=== PATIENT | male | born 1970 | race Caucasian/White ===

== ENCOUNTER → 2018-05-24 13:30 | Outpatient (REF) | payer MEDICAID, SELFPAY ==
[2018-05-24 14:38] LABS: ESR 25 MM/HR (0-15)
[2018-05-24 14:42] LABS: C-Reactive Protein 0.97 mg/dL (0.0-0.3)
== END ==
LOC: LBO 13:30
PROVIDERS: PCP Nurse Practitioner Family; Visit Provider Nurse Practitioner Family
DX: R79.82 Elevated C-reactive protein (CRP) (principal); R70.0 Elevated erythrocyte sedimentation rate
CPT/HCPCS: 36415; 85652; 86140

== ENCOUNTER 2018-05-28 20:08 | Emergency (ER) | payer MEDICAID, SELFPAY ==
[2018-05-28] VITALS (8 sets, daily range): BP systolic 104–128; BP diastolic 68–105; PULSE 87–100; RESP 16–23; TEMP 37.4; O2SAT 95–100
--- NOTE | 2018-05-28 20:14 | DI.RPTCT_ITS ---
SYMPTOM/DIAGNOSIS: FEVER, LOW ABD PAIN ABDOMEN AND PELVIC CT: The study was carried out with an intravenous injection of 125 cc's of Omnipaque 350. The liver is unremarkable. The gallbladder is intact. There are no stones or ductal dilatation. The pancreas and spleen and adrenals are unremarkable. There are subcentimeter low density regions in both kidneys, too small to characterize though most likely representing cysts. There is no evidence of hydronephrosis. The stomach is unremarkable. There is no evidence of bowel obstruction. The appendix is normal. The bladder is not well distended but no gross abnormality is seen. Calcifications are noted in the prostate gland. There is no evidence of free air or fluid in the intraperitoneal space. Note is made of a stable small bone island in the S 1 vertebral body. Multi level degenerative changes are demonstrated involving the spine. No acute bony abnormality is seen. The soft tissues are unremarkable. There are atherosclerotic changes involving the aorta and major branches. There is no evidence of an aortic aneurysm. There is no evidence of lymphadenopathy. SUMMARY: No evidence of an acute abdomen. Chronic findings as described above.
--- NOTE | 2018-05-28 20:18 | ED.GENADUL ---
Disposition Clinical Impression: Abdominal pain, Elevated LFTs Disposition: HOME Condition: Stable Instructions: Abdominal Pain (ED) Additional Instructions: follow up with your primary care provider within one week if you have severe worsening pain or persistent vomit return to the emergency department. Also return if you have shortness of breath, or chest pain/pressure Medical Decision Making - Lab Data Results reviewed for labs ordered during visit: Yes - EKG Data -: EKG Interpreted by Me EKG shows normal: sinus rhythm, axis, intervals, QRS complexes, ST-T waves Rate: normal Interpretation: no acute changes - Radiology Data Radiology results: report reviewed, image reviewed - Medical Decision Making pt here with complaints of fevers since yesterday though didn't check his temp yesterday and intermittent abdominal pain since yesterday. Has no findings on exam to suggest appendicitis, but given his fever and location of pain will image to eval for pyelo vs kidney stone. NO cough or chest pain or sob so doubt pna. 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 No heart murmur, no ivdu and no stigmata of endocarditis pt remains stable is asymptoamtic at this time. Awaiting imaging results, has very mild elevation of lfts and lipase. HAs no abdominal tenderness or pain at this time, no garcía's sign so unlikely cholecystitis or pancreatitis. imaging shows no significant acute pathology. HE remains without symptoms and is walking on his own without symptoms. No tenderness on abdominal exam. Feel he is stable for outpatient management, he will f/u with pcp and return precautions given - Differential Diagnosis pyelo, kidney stone, pna History of Present Illness - General Chief complaint: Abd Prob Stated complaint: CALEX Time Seen by Provider: 05/28/18 20:09 Source: patient Mode of arrival: EMS Limitations: no limitations - History of Present Illness Initial comments: 48 yo male with hx of hld, pancreatitis, who comes in with cc of fever since yesterday. HE states he felt warm yesterday but didn't take his temp. Today he checked his temp and it was 100.8 so he came here. He noted some rlq pain earlier today and has some pain in the rlq with movement, has no pain on abdominal exam. Does note increased urinary frequency recently. Denies chest pain or cough, no headaches or neck pain or stiffness MD Complaint: fever Onset/Timin -: days(s) Improves with: none Worsens with: none Associated Symptoms: other (abd pain) Treatments Prior to Arrival: none - Related Data HydrOXYzine PAMOATE [Vistaril] 50 mg PO BID 03/09/17 Nystatin 15 gm TP PRN 03/22/17 Acetaminophen [Tylenol] 1,000 PO PRN PRN 05/16/17 Bupropion HCl [Wellbutrin Xl] 300 mg PO DAILY #90 tab-cap 10/08/17 Ibuprofen 400 mg PO HS tab-cap 02/21/18 Pantoprazole Sodium 40 mg PO DAILY 90 Days #90 tab-cap 05/03/18 Citalopram Hydrobromide [Citalopram HBr] 40 mg PO DAILY #90 tab-cap 05/22/18 Simvastatin 40 mg PO DAILY #90 tab-cap 05/24/18 Allergies Allergy/AdvReac Type Severity Reaction Status Date / Time nicotine [From Nicoderm CQ] AdvReac headaches Unverified 05/28/18 20:13 Review of Systems Constitutional: fever. denies: chills Respiratory: denies: shortness of breath Cardiovascular: denies: chest pain Gastrointestinal: abdominal pain. denies: nausea, vomiting Skin: denies: rash Neurological: denies: headache Comment: All other systems reviewed and negative Past Medical History - Past Medical History Medical history: GERD, hyperlipidemia Surgical history: non-contributory - Social History Smoking status: current everyday smoker Alcohol use: none Drug use: none General Exam - General Limitations: no limitations General appearance: alert, in no apparent distress - Head Head exam: Present: atraumatic - Eye Eye exam: Present: normal apperance - ENT ENT exam: Present: mucous membranes moist - Neck Neck exam: Present: normal inspection - Respiratory Respiratory exam: Present: normal lung sounds bilaterally. Absent: respiratory distress - Cardiovascular Cardiovascular Exam: Present: regular rate, normal rhythm, normal heart sounds - GI/Abdominal GI/Abdominal exam: Present: soft. Absent: distended, tenderness - Extremities Exam Extremities exam: Present: normal inspection - Back Exam Back exam: Absent: CVA tenderness (R), CVA tenderness (L) - Neurological Exam Neurological exam: Present: alert, oriented X3 - Psychiatric Psychiatric exam: Present: normal affect - Skin Skin exam: Present: warm Course Vital Signs - 24 hr 05/28/18 20:09 Temperature 99.3 F Pulse 100 H Respiratory 23 Rate Blood Pressure 128/105 Pulse Oximetry 100
[2018-05-28 20:22] LABS: Lactate-non-spesis 1.3 mmol/L (0.6-1.4)
[2018-05-28 20:26] LABS: Abs Immature Grans 0.01 k/cumm (0.0-0.09); Absolute Basophil Count 0.03 k/cumm (0.0-0.2); Absolute Lymphocyte Count 1.53 k/cumm (1.2-3.4); Absolute Monocyte Count 0.45 k/cumm (0.11-0.7); Absolute Neutrophil Count 4.25 k/cumm (1.2-6.7); Basophils % 0.5; HCT 43.6 % (40.0-50.0); Immature Grans % 0.2; Lymphocytes % 24.4; Mean Corp. HGB Concentration 34.4 g/dL (32.0-36.0); Mean Corpuscular Hemoglobin 29.9 pg (27.0-33.0); Mean Corpuscular Volume 86.9 fL (80-95); Mean Platelet Volume 8.2 fL (8.0-11.0); Monocytes % 7.2; Neutrophils % 67.7; Platelet Count 183 x1000/uL (130-400); RBC 5.02 m/cumm (4.50-6.00); White Blood Cell Count 6.27 k/cumm (4.4-10.8)
[2018-05-28] MEDS: Omnipaque 350 MG/ML 100 ML BTL 125 ML IV (20:30)
[2018-05-28 20:39] LABS: Lipase 480 U/L (73-393)
[2018-05-28 20:42] LABS: Bilirubin Negative (Negative); Blood Trace-intact (Negative); Clarity Clear; Glucose Negative (Negative); Ketones Trace mg/dL (Negative); Leukocyte Esterase Negative (Negative); Nitrite Negative (Negative)
[2018-05-28 20:46] LABS: ALT 95 U/L (12-78); AST 43 U/L (15-37); Albumin 4.2 g/dL (3.4-5.0); Alkaline Phosphatase 116 U/L (46-116); Anion Gap 10.8 mmol/L (3-11); BUN 13 mg/dL (7-18); Bilirubin, Total 0.5 mg/dL (0.2-1.0); CO2 25.2 mmol/L (21.0-32.0); Chloride 100 mmol/L (98-107); Estimated GFR 58.43 (mL/min/1.73m2); Glucose 129 mg/dL (70-100); Magnesium 2.3 mg/dL (1.8-2.4); Potassium 3.6 mmol/L (3.5-5.1); Sodium 136 mmol/L (136-145); Total Protein 8.6 g/dL (6.4-8.2)
[2018-05-28 20:54] LABS: Troponin I < 0.02 ng/mL (0.00-0.06)
[2018-05-28 20:59] LABS: Bacteria Rare HPF (Negative); C & S Indicated? No; Casts 0-2 Hyaline LPF (Negative); Crystals Negative HPF (Negative); Epithelial Cells Rare HPF (Negative); Mucus Negative (Negative); RBC 0-2 (0-2)
[2018-05-28] MEDS: Acetaminophen 500 MG TAB 1000 MG PO (21:25)
[2018-05-28] MEDS: Normal Saline 1,000 ML 1000 ML IV (21:26)
--- NOTE | 2018-05-28 21:40 | DI.VRAD_ITS ---
EXAM: CT Abdomen and Pelvis With Intravenous Contrast CLINICAL HISTORY: 48 years old, male; Signs and symptoms; Other: Fever and lower abdominal pain TECHNIQUE: Axial computed tomography images of the abdomen and pelvis with intravenous contrast. All CT scans at this facility use at least one of these dose optimization techniques: automated exposure control; mA and/or kV adjustment per patient size (includes targeted exams where dose is matched to clinical indication); or iterative reconstruction. Coronal and sagittal reformatted images were created and reviewed. CONTRAST: 125 mL of omnipaque 350 administered intravenously. COMPARISON: CT - ABD PELVIS WITH CONTRAST 2018-01-17 21:34 FINDINGS: Lung bases: Unremarkable. No mass. No consolidation. ABDOMEN: Liver: Unremarkable. No mass. Gallbladder and bile ducts: Unremarkable. No calcified stones. No ductal dilation. Pancreas: Unremarkable. No mass. No ductal dilation. Spleen: Unremarkable. No splenomegaly. Adrenals: Unremarkable. No mass. Kidneys and ureters: Small subcentimeter low density lesions in both kidneys, too small to characterize though statistically representing cysts. No hydronephrosis. Stomach and bowel: Unremarkable. No obstruction. No mucosal thickening. PELVIS: Appendix: The appendix is normal. Bladder: Unremarkable. No mass. Reproductive: Calcifications in the prostate gland. ABDOMEN and PELVIS: Intraperitoneal space: Unremarkable. No free air. No significant fluid collection. Bones/joints: Stable small bone island in the S1 vertebral body.Multilevel degenerative changes of the visualized spine. No acute fracture. No dislocation. Soft tissues: Unremarkable. Vasculature: Atherosclerotic calcifications of the aorta and major branches. No abdominal aortic aneurysm. Lymph nodes: Unremarkable. No enlarged lymph nodes. IMPRESSION: 1. No acute findings. 2. Other chronic findings, as above. Dictated and Authenticated by: Hernan Bruno MD. Ordering:CHELSEA CHAMPAGNE MD
[2018-05-30 11:02] LABS: Hepatitis A Antibody IgM Negative (NEGAT); Hepatitis B Core Antibody Negative (NEGAT); Hepatitis B surface Ag Negative (NEGAT); Hepatitis C Ab w Rflx HCV PCR Negative (NEGAT)
[2018-05-30 12:56] LABS: Lyme Ab w Rflx to Lyme Confirm Negative
[2018-05-31 20:41] LABS: Anaplasma phagocytophilum Negative (Negative); B. miyamotoi PCR Negative (Negative); Babesia divergens/MO-1 Negative (Negative); Babesia duncani Negative (Negative); Babesia microti Negative (Negative); Ehrlichia chaffeensis Negative (Negative); Ehrlichia ewingii/canis Negative (Negative); Ehrlichia muris eauclairensis Negative (Negative)
== END 2018-05-28 22:35 | disposition home or self-care (01) ==
PROVIDERS: Emergency Provider Emergency Medicine; PCP Nurse Practitioner Family
DX: R10.31 Right lower quadrant pain (principal); R74.8 Abnormal levels of other serum enzymes; R50.9 Fever, unspecified
CPT/HCPCS: 36415; 80053; 83690; 86704; 86709; 86803; 87340; 93005; 99285; 74177; 81003; 81015; 83605; 83735; 84484; 85025; 86618; 87798; 93010; 99284; J3490

== ENCOUNTER 2018-06-14 14:30 | Outpatient (RCR) | payer MEDICAID, SELFPAY ==
--- NOTE | 2018-05-31 16:00 | PTTR_ITS ---
DATE: 05/31/18 SUBJECTIVE: Pt states that his back is doing fairly well. OBJECTIVE: Therapeutic procedures ([id number]). * X Provided skilled instruction in proper exercise performance: Pt completed core stabilization ther ex, glute strengthening, LE strengthening, and cardio as per flow sheet with the wellness. Pt was able to tolerate a slight increase in his program today please see flow sheet for specifics. We excluded the treadmill today due to pt stating it made his knees swell after last session. Direct treatment time: 30 Total treatment time: 45
--- NOTE | 2018-06-11 14:38 | NT_ITS ---
06/11/18 Pt no show no called for today's PT appointment.
--- NOTE | 2018-06-12 14:34 | PTTR_ITS ---
DATE: 06/12/18 SUBJECTIVE: Pt reports that he is doing well. He states that he has been able to walk more. OBJECTIVE: Therapeutic procedures ([id number]). * X Provided skilled instruction in proper exercise performance: Pt completed LE strengthening, glute strengthening, core stabilization ther ex, functional sit to stands to fatigue, and cardio on the Nu Step. Pt was able to tolerate a slight increase in his program today. Pt was also shown how to properly chart and complete his program on his own. Pt will have one more visit as a review and then complete an MSP program for one month and then recheck with PT Segun Kruger. Direct treatment time: 30 Total treatment time: 40
--- NOTE | 2018-06-14 14:39 | PTTR_ITS ---
DATE: 06/14/18 OBJECTIVE: Therapeutic procedures ([id number]). * X Provided skilled instruction in proper exercise performance: Pt completed core stabilization ther ex, glute strengthening, LE strengthening, functional sit to stands with glute sets, and cardio on the Nu Step and UBE. Pt was prepped for his last MSP session with me today and next week will start his independent program for 1 month and recheck with PT Segun Kruger. Direct treatment time: 30 Total treatment time: 45
== END 2018-06-21 23:59 | disposition home or self-care (01) ==
LOC: PT 14:30
PROVIDERS: PCP Nurse Practitioner Family; Referring Provider Nurse Practitioner Family; Visit Provider Nurse Practitioner Family
DX: M54.2 Cervicalgia (principal); M25.511 Pain in right shoulder; M25.512 Pain in left shoulder; M25.561 Pain in right knee
CPT/HCPCS: 97110

== ENCOUNTER → 2018-06-20 12:05 | Outpatient (CLI) | payer MEDICAID, SELFPAY ==
[2018-06-20 13:13] LABS: ALT 76 U/L (12-78); AST 41 U/L (15-37); Albumin 4.2 g/dL (3.4-5.0); Alkaline Phosphatase 107 U/L (46-116); Anion Gap 4.6 mmol/L (3-11); BUN 13 mg/dL (7-18); Bilirubin, Total 0.3 mg/dL (0.2-1.0); CO2 29.4 mmol/L (21.0-32.0); CREATININE 1.07 mg/dL (0.70-1.30); Chloride 110 mmol/L (98-107); Glucose 95 mg/dL (70-100); Lipase 170 U/L (73-393); Potassium 3.9 mmol/L (3.5-5.1); Sodium 144 mmol/L (136-145); Total Protein 7.6 g/dL (6.4-8.2)
== END ==
PROVIDERS: PCP Nurse Practitioner Family; Visit Provider Nurse Practitioner Family
DX: R74.8 Abnormal levels of other serum enzymes (principal); R94.5 Abnormal results of liver function studies
CPT/HCPCS: 36415; 80053; 83690

== ENCOUNTER 2018-10-31 16:13 | Emergency (ER) | payer MEDICAID, SELFPAY ==
[2018-10-31] VITALS (24 sets, daily range): BP systolic 103–136; BP diastolic 64–111; PULSE 91–113; RESP 13–26; TEMP 37.2–37.8; O2SAT 92–97
--- NOTE | 2018-10-31 16:36 | ED.GENADUL_ITS ---
Discharge Plan Disposition Patient Disposition: HOME Condition: Improving Discharge Details Chief Complaint: GenMedical Clinical Impression: Acute UTI Reason For Visit: ROXANA Primary Care Provider: Griselda Vides ED Provider: Arcadio Kincaid Home Meds and New Rx's Prescriptions: New levofloxacin [Levaquin] 500 mg tablet 500 mg PO DAILY Qty: 7 RF: 0 Continued nystatin 15 GM cream 15 gm Topical PRN RF: 0 bupropion HCl [Wellbutrin XL] 300 MG tablet extended release 24 hr 300 mg PO DAILY Qty: 90 RF: 3 pantoprazole 40 MG tablet,delayed release (DR/EC) 40 mg PO DAILY 90 Days Qty: 90 RF: 0 Citalopram Hydrobromide [Citalopram HBr] 40 MG tablet 40 mg PO DAILY Qty: 90 RF: 3 simvastatin 40 mg tablet 40 mg PO QPM Qty: 90 RF: 3 aspirin [Aspir-Low] 81 mg Tablet,Delayed Release (Dr/Ec) 81 mg PO DAILY RF: 0 Discontinued hydroxyzine pamoate 50 MG capsule 50 mg PO BID RF: 0 ibuprofen 200 MG capsule 400 mg PO HS RF: 0 Discharge Instructions Instructions: Urinary Tract Infection in Men (ED) Additional Instructions: Follow-up with regular doctor for recheck if not improving in 3-5 days time. Return to the emergency department for any acute concerns. Avoid the use of hydroxyzine and ondansetron while taking the antibiotic. As we discussed this rarely can cause joint and tendon inflammation. Tylenol as needed for aches, pains, fever. Home to rest this evening Medical Decision Making 48-year-old male presents with a day and a half of left lower quadrant abdominal pain that radiates to his groin. Severe at times. Associated with changes to urine. He does have a history of pancreatitis and states that it feels similar in some ways. Minimal nausea, no fever, no trauma to his genitals. He states that he has otherwise recently been well. He arrives with a temp of 37.8, normal blood pressure, pulse in the 90s. He is tender in the left lower quadrant. Does not seem to be a classic presentation of pancreatitis but this is within the differential diagnosis, as well as renal colic or bowel pathology. Patient IV access established given Toradol, fluids, antiemetic, referred for CT urogram in order to have both contrast enhanced evaluation of the pancreas as well as traditional renal colic study. White blood cell count 12, troponin negative, lipase negative, urine concentrated and with both blood and positive leuk esterase. CT reported as no acute findings. On my reading I feel there is stranding of the distal colon adjacent to the ureter. This in combination with positive urinary tract infection would make me want to choose monotherapy with a loretta quinolone to cover both urinary tract infection as well as early diverticulitis. I discussed this with the patient including the risk of tendon\ligament inflammation on the fluoroquinolone. He will follow-up with regular doctor for recheck, appropriate for discharge home at this time Lab Data Lab results reviewed: Yes I reviewed the patient's lab results. Laboratory Results - last 24 hr 10/31/18 10/31/18 10/31/18 16:29 16:29 16:57 WBC 12.48 H RBC 4.38 L Hgb 13.1 L Hct 38.9 L MCV 88.8 MCH 29.9 MCHC 33.7 RDW 13.1 Plt Count 259 MPV 8.4 Immature Gran % 0.2 Neutrophils % 74.5 Lymphocytes % 17.6 Monocytes % 6.7 Eosinophils % 0.7 Basophils % 0.3 Absolute Neutrophils 9.30 H Absolute Lymphocytes 2.20 Absolute Monocytes 0.84 H Absolute Eosinophils 0.09 Absolute Basophils 0.04 Sodium 145 Potassium 4.1 Chloride 108 H Carbon Dioxide 26.4 Anion Gap 10.6 BUN 10 Creatinine 1.15 Estimated GFR/1.73 m2 >= 60.00 Glucose 108 H Calcium 9.0 Total Bilirubin 0.3 Conjugated Bilirubin 0.09 AST 33 ALT 67 Alkaline Phosphatase 127 H Troponin I < 0.02 Total Protein 7.6 Albumin 3.9 Lipase 160 Urine Color Yellow Urine Clarity Clear Urine pH 5.5 Ur Specific [place] >= 1.030 H Urine Protein 30 H Urine Ketones Trace H Urine Blood Large H Urine Nitrite Negative Urine Bilirubin Negative Urine Urobilinogen 0.2 Ur Leukocyte Esterase Moderate H Urine Glucose Negative ECG Data Attestation: I personally reviewed and interpreted this ECG (s) as follows: Interpretation: Sinus tachycardia, rate of approximately 100, the QRS is narrow, there is no ST segment elevation press HPI General Mode of arrival: EMS . Date/Time Provider Initiated Documentation: 10/31/18 16:19 . Limitations to Documentation: no limitations . Information obtained by: EMS . History of Present Illness 48 year old M presents to the emergency department with the chief complaint of Left lower quadrant abdominal pain since last night, described as moderate, Quality is described as aching, and is localized to the abdomen and left. Patient distal. and it has been intermittent. No relieving factors improve symptom(s), No exacerbating factors reported . Patient notes other (Bloody and burning in urine). Patient did receive the following treatments prior to arrival, none Related Data Home Medications Medication Instructions Recorded Confirmed nystatin 15 gm TOPICAL PRN 03/22/17 10/31/18 bupropion HCl [Wellbutrin XL] 300 mg PO DAILY #90 tab-cap 10/08/17 10/31/18 pantoprazole 40 mg PO DAILY 90 Days #90 tab-cap 05/03/18 10/31/18 simvastatin 40 mg tablet 40 mg PO QPM #90 tab-cap 06/25/18 10/31/18 aspirin [Aspir-Low] 81 mg PO DAILY 10/31/18 10/31/18 levofloxacin [Levaquin] 500 mg PO DAILY #7 tab 10/31/18 Previous Rx's Medication Instructions Recorded bupropion HCl [Wellbutrin XL] 300 mg PO DAILY #90 tab-cap 10/08/17 pantoprazole 40 mg PO DAILY 90 Days #90 tab-cap 05/03/18 simvastatin 40 mg tablet 40 mg PO QPM #90 tab-cap 06/25/18 levofloxacin [Levaquin] 500 mg PO DAILY #7 tab 10/31/18 Allergies Allergy/AdvReac Type Severity Reaction Status Date / Time nicotine [From Nicoderm CQ] AdvReac headaches Unverified 10/31/18 18:43 General Stated Complaint: GenMedical DIOMEDES: 3 Review of Systems Review of Systems 8 systems reviewed and otherwise neg [facility] Medical History Arthritis Chronic back pain Chronic pain of both knees Depression GERD (gastroesophageal reflux disease) Hyperlipidemia TERESSA (obstructive sleep apnea) Obesity Seborrheic dermatitis Tobacco use disorder Surgical History CT Urogram (10/03/11) EGD Extraction of cataract MRI (10/11/11) cervical Spine Xray (01/03/16) hand surgery Family History Mother Depression Heart disease Hypertension Father Heart disease Stroke Sister Alzheimers disease Breast cancer Social History Smoking/Tobacco Use Status: Former Tobacco Use Exam Narrative Exam Narrative: GEN: awake, alert, oriented 3. Pleasant, well groomed, interactive. HEAD: Normocephalic, atraumatic ENT: Mucous membranes moist, oropharynx unremarkable, External ear exam unremarkable EYES: PERRL, EOMI NECK: Full ROM, no PATRICK, no menigismus CHEST/RESP: Nontender, clear to auscultation bilateral, no wheeze/rhonchi/rales CARDIOVASCULAR: RRR, no murmur, rub brad. 2+ Rad pulse bilateral ABDOMEN: Soft, tender left lower quadrant without rebound or guarding, no mass. +Bowel sounds, bilateral testes descended EXT: Full ROM, no edema, no rash Neuro: Grossly normal neurologic exam, conversant, interactive. Psych: Speech fluent, thoughts congruent, affect normal Course Vital Signs Temperature 37.8 C H 10/31/18 16:13 Pulse 97 H 10/31/18 16:13 Respiratory Rate 16 10/31/18 16:13 Blood Pressure 115/73 10/31/18 16:13 Temperature 37.8 C H 10/31/18 16:13 Temperature Source Temporal Artery Scan 10/31/18 16:13 Pulse 97 H 10/31/18 16:13 Respiratory Rate 16 10/31/18 16:13 Blood Pressure 115/73 10/31/18 16:13 Blood Pressure Position Sitting 10/31/18 16:13 Oxygen Delivery Method Room Air 10/31/18 16:13 Oxygen Flow Rate 0 10/31/18 16:13 Pain Level 2 10/31/18 16:13
[2018-10-31] MEDS: Lactated Ringers 1,000 ML 1000 ML IV (16:43)
[2018-10-31] MEDS: Normal Saline Flush 10 ML SYR IVP (16:44)
[2018-10-31] MEDS: Ondansetron 4 MG/2 ML VIAL IVP (16:44)
[2018-10-31 16:51] LABS: Abs Immature Grans 0.03 k/cumm (0.0-0.09); Absolute Basophil Count 0.04 k/cumm (0.0-0.2); Absolute Eosinophil Count 0.09 k/cumm (0.0-0.7); Basophils % 0.3; Eosinophils % 0.7; HCT 38.9 % (40.0-50.0); HGB 13.1 g/dL (13.5-17.5); Immature Grans % 0.2; Lymphocytes % 17.6; Mean Corp. HGB Concentration 33.7 g/dL (32.0-36.0); Mean Corpuscular Hemoglobin 29.9 pg (27.0-33.0); Mean Corpuscular Volume 88.8 fL (80-95); Mean Platelet Volume 8.4 fL (8.0-11.0); Monocytes % 6.7; Neutrophils % 74.5; Platelet Count 259 x1000/uL (130-400); RBC 4.38 m/cumm (4.50-6.00); RBC Distribution Width 13.1 % (11.8-14.1); White Blood Cell Count 12.48 k/cumm (4.4-10.8)
[2018-10-31 16:54] LABS: Absolute Monocyte Count 0.84 k/cumm (0.11-0.7)
[2018-10-31 17:00] LABS: ALT 67 U/L (12-78); AST 33 U/L (15-37); Albumin 3.9 g/dL (3.4-5.0); Alkaline Phosphatase 127 U/L (46-116); Anion Gap 10.6 mmol/L (3-11); BUN 10 mg/dL (7-18); Bilirubin, Direct 0.09 mg/dL (0.00-0.20); Bilirubin, Total 0.3 mg/dL (0.2-1.0); CO2 26.4 mmol/L (21.0-32.0); CREATININE 1.15 mg/dL (0.70-1.30); Chloride 108 mmol/L (98-107); Glucose 108 mg/dL (70-100); Lipase 160 U/L (73-393); Potassium 4.1 mmol/L (3.5-5.1); Sodium 145 mmol/L (136-145); Total Protein 7.6 g/dL (6.4-8.2)
[2018-10-31 17:06] LABS: Bilirubin Negative (Negative); Blood Large (Negative); Clarity Clear; Glucose Negative (Negative); Ketones Trace mg/dL (Negative); Leukocyte Esterase Moderate (Negative); Nitrite Negative (Negative); Specific Gravity >= 1.030 (1.005-1.025); Urobilinogen 0.2 EU/dL (Up TO 0.2); pH 5.5 (5-8)
[2018-10-31 17:11] LABS: Troponin I < 0.02 ng/mL (0.00-0.06)
[2018-10-31 17:17] LABS: Bacteria Many HPF (Negative); C & S Indicated? Yes; Casts Negative LPF (Negative); Crystals Negative HPF (Negative); Epithelial Cells Negative HPF (Negative); Mucus Negative (Negative); RBC >50 (0-2); WBC >50 HPF (0-5)
[2018-10-31] MEDS: Ketorolac 30 MG/ML VIAL IVP (17:33)
[2018-10-31] MEDS: Omnipaque 350 MG/ML 100 ML BTL IJ (18:02)
--- NOTE | 2018-10-31 18:05 | DI.CT_ITS ---
SYMPTOM/DIAGNOSIS: LLQ ABD PAIN, DYSURIA, H/O PANCREATITIS ABDOMEN AND PELVIC CT: Images were performed before and after IV contrast. No oral contrast was administered. The noncontrast images show no evidence of urinary tract calculi. There is no evidence of hydronephrosis. The urinary bladder is nearly empty. The gallbladder, spleen, pancreas, adrenals and kidneys are unremarkable. 7 minute delayed images show symmetric bilateral pyelograms. No filling defects are seen. There is no bowel dilatation or inflammatory change. The appendix is well seen and appears normal. Prostate calcifications are present. There are scattered diverticula but no evidence of diverticulitis. No free air or free fluid is seen. There is no evidence of adenopathy. The aorta is normal in diameter. There are mild degenerative changes in the spine. IMPRESSION: Diverticulosis without evidence of diverticulitis. No urinary tract calculi or hydronephrosis is seen.
--- NOTE | 2018-10-31 18:35 | DI.VRAD_ITS ---
EXAM: CT Abdomen and Pelvis Without and With Contrast EXAM DATE/TIME: 10/31/2018 4:33 PM CLINICAL HISTORY: 48 years old, male; Pain; Abdominal pain; Localized; Left lower quadrant (llq); Patient HX: Llq abdomen pain, dysuria, HX pancreatitis TECHNIQUE: Axial computed tomography images of the abdomen and pelvis without and with intravenous contrast. All CT scans at this facility use at least one of these dose optimization techniques: automated exposure control; mA and/or kV adjustment per patient size (includes targeted exams where dose is matched to clinical indication); or iterative reconstruction. Coronal and sagittal reformatted images were created and reviewed. CONTRAST: 100 ml of omnipaque 350 administered intravenously. COMPARISON: CT ABD PELVIS WITH CONTRAST 05/28/2018 8:27 PM FINDINGS: Lower thorax: No acute findings. ABDOMEN: Liver: Hepatic steatosis. Gallbladder and bile ducts: Normal. No calcified stones. No ductal dilation. Pancreas: Normal. No ductal dilation. Spleen: Normal. No splenomegaly. Adrenals: Normal. No mass. Kidneys and ureters: Mild symmetric bladder wall thickening is likely due to decompression. No hydronephrosis or stones. Stomach and bowel: Normal. No obstruction. No mucosal thickening. Appendix: The appendix is well-seen and appears normal. PELVIS: Bladder: Unremarkable as visualized. Reproductive: Unremarkable as visualized. ABDOMEN and PELVIS: Intraperitoneal space: Normal. No free air. No significant fluid collection. Bones/joints: No acute fracture. No dislocation. Soft tissues: Unremarkable. Vasculature: Normal. No abdominal aortic aneurysm. Lymph nodes: Normal. No enlarged lymph nodes. IMPRESSION: No acute findings. Dictated and Authenticated by: Austyn Sanchez MD. Ordering:FRANCO Ervin MD
== END 2018-10-31 19:08 | disposition home or self-care (01) ==
PROVIDERS: Emergency Provider Emergency Medicine; PCP Nurse Practitioner Family
DX: N39.0 Urinary tract infection, site not specified (principal); B97.89 Other viral agents as the cause of diseases classified elsewhere; Z87.19 Personal history of other diseases of the digestive system; R00.0 Tachycardia, unspecified
CPT/HCPCS: 36415; 80053; 80076; 83690; 93005; 96361; 96374; 96375; 99285; 74178; 81003; 81015; 84484; 85025; 87086; 93010; 99284; J1885; J2405; J3490

== ENCOUNTER 2018-12-11 11:33 | Outpatient (CLI) | payer MEDICAID, SELFPAY ==
--- NOTE | 2018-12-11 11:30 | DI.RAD_ITS ---
SYMPTOM/DIAGNOSIS: PAIN RIGHT HIP: Two views. Comparison lumbar spine is 02/07/18. Comparison CT scan is 01/17/18. There is again seen mild joint space narrowing, subchondral sclerosis and periarticular spurring in the right hip. There is also well corticated osseous fragment seen at the anterior superior aspect of the joint space. This was present on the CT scan from 2018 and appears old. No acute fracture, dislocation, lytic or sclerotic lesion is seen. The soft tissues are unremarkable. IMPRESSION: Stable mild to moderate degenerative changes of the right hip.
== END 2018-12-11 11:53 ==
PROVIDERS: PCP Nurse Practitioner Family; Visit Provider Orthopaedic Surgery
DX: M25.551 Pain in right hip (principal); M16.11 Unilateral primary osteoarthritis, right hip
CPT/HCPCS: 73502

== ENCOUNTER 2018-12-30 11:37 | Day surgery (SDC) | payer MEDICAID, SELFPAY ==
[2018-12-30 12:00] VITALS: BP 117/77; PULSE 75; RESP 18; TEMP 36.7; O2SAT 98
--- NOTE | 2018-12-30 14:02 | DI.RAD_ITS ---
SYMPTOM/DIAGNOSIS: OA RT HIP RIGHT HIP INJECTION: Fluoroscopy Time: 4.6 seconds Fluoroscopy was utilized by Dr. Peacock during the performance of a right hip injection. Please refer to the procedure report for complete details.
[2018-12-30] MEDS: methylPREDNISolone ACETATE 80 MG/ML VIAL (16:09)
--- NOTE | 2018-12-30 16:14 | PDOC.DSDIS_ITS ---
Discharge Plan Disposition Patient Disposition: HOME Condition: Good Discharge Details Reason For Visit: C-arm guided R hip injection Attending Provider: Arcadio Peacock Primary Care Provider: Griselda Vides Home Meds and New Rx's Prescriptions: Continued hydroxyzine HCl 50 mg tablet 50 mg PO BID RF: 0 nystatin 15 GM cream 15 gm Topical PRN RF: 0 simvastatin 40 mg tablet 40 mg PO QPM Qty: 90 RF: 3 pantoprazole 40 mg tablet,delayed release (DR/EC) 40 mg PO DAILY Qty: 90 RF: 0 bupropion HCl [Wellbutrin XL] 300 mg tablet extended release 24 hr 300 mg PO DAILY Qty: 90 RF: 3 citalopram 40 mg tablet 40 mg PO DAILY RF: 0 aspirin [Aspir-Low] 81 mg Tablet,Delayed Release (Dr/Ec) 81 mg PO DAILY RF: 0 ibuprofen 400 mg Tablet 400 mg PO PRN PRNRF: 0 multivitamin Capsule 1 cap PO HS RF: 0 Discharge Instructions Additional Instructions: Rest R hip for next 2 days. After 48 hours, gradually resume activities as tolerated. Follow up with in one month. Referrals: Arcadio Peacock MD [ [facility] STAFF PHYSICIAN] - (f/u in one month) Activity:: Activity as Tolerated Diet:: As Tolerated Discharge Orders Discharge Orders: Discharge Order (Routine); Ordered 12/30/18 Ordered By: Arcadio Peacock DS: Diagnosis Discharge Diagnosis (1) Right hip pain: Status: Acute
--- NOTE | 2018-12-30 17:54 | NUR.NOTE ---
At 1734, this nurse went to Room S2C to assist total local Patient to waiting wheelchair [facility] when Pt reported that he had gotten up on his own accord without ringing for assistance or cane and had fallen d/t his operative leg just went out on me. Pt denies pain or to hitting head; demonstrates small red scratch to R forearm and otherwise c/o numbness to upper R thigh. VSS 36.9, 83, 19, 111/77, 98%. Joselin Allen CRNA and Dr. Peacock notified with Dr. Peacock evaluating Pt. Dr. Peacock prescribed crutches to be used partial weight bearing. Pt states he has used crutches and demonstrated proper technique. Pt up to the bathroom with crutches and sbg, returning to recliner. Continue to monitor, callbell in reach and [facility] notified again for Pt pickup.
--- NOTE | 2018-12-30 17:56 | ROE_ITS ---
DATE OF PROCEDURE: December 30, 2018 PREOPERATIVE DIAGNOSIS: Right hip pain. POSTOPERATIVE DIAGNOSIS: Right hip pain. PROCEDURE: C-arm guided diagnostic right hip injection. SURGEON: Arcadio Peacock M.D. ANESTHESIA: Local. INDICATIONS: This is a 48-year-old white male who has developed some right lower extremity pain of s everal months' duration. There was concern about whether the patient's right knee pain was referred pain from the hip or the back. He has not benefitted from injections in his knee. I recommended a C -arm guided injection of the right hip. If his pain is relieved by intraarticular injection of the h ip, then it would confirm the hip as the source of his pain. If the injection does not give him any benefit, he may need further workup of his back as the source of his pain. The risks and complicatio ns of the procedure were explained to the patient in detail preoperatively. PROCEDURE: The patient was taken to the Operating Room on 12/30/18. He was placed supine on the oper ating table. The hip joint was localized using uterine forceps on the skin and the C-arm. Once the uterine forceps were located directly over the femoral head, the skin was marked and the skin was pre pped with an alcohol swab, and then an 18-gauge needle was inserted directly to the femoral head. Th e right hip was then injected with 15 cc of 0.5% Marcaine with epinephrine solution along with 80 mg of Depo-Medrol. I cycled his right hip with passive range of motion for 30 seconds to distribute the medication. The patient tolerated the procedure well and was discharged to the Day Surgery Unit in good condition. The patient was discharged home from the Day Surgery Unit with instructions to rest his right hip for the next 48 hours. After 48 hours, he may gradually resume activities as tolerated. He was given 1 0 mg p.o. of OxyContin one time in the Day Surgery Unit prior to discharge. He will take Tylenol or ibuprofen as needed for pain at home. He will follow up in my office in one month.
== END 2018-12-30 18:27 | disposition home or self-care (01) ==
PROVIDERS: PCP Nurse Practitioner Family; Visit Provider Orthopaedic Surgery
PROC: (CPT 20610; principal; 2018-12-30 12:30)
DX: M25.551 Pain in right hip (principal); M25.561 Pain in right knee
CPT/HCPCS: 20610; 77002; 76000; 73501; E0114; J1040

== ENCOUNTER 2019-01-20 11:53 | Emergency (ER) | payer MEDICAID, SELFPAY ==
[2019-01-20] VITALS (76 sets, daily range): BP systolic 85–132; BP diastolic 36–78; PULSE 75–149; RESP 11–29; TEMP 37.2–37.4; O2SAT 93–99
--- NOTE | 2019-01-20 11:55 | W.ED.GENAD ---
Discharge Plan Disposition Patient Disposition: HOME Discharge Details Chief Complaint: OD/Poison Clinical Impression: Depression, Suicide attempt Primary Care Provider: Griselda Vides ED Provider: Ashkan Bland Home Meds and New Rx's Prescriptions: Continued nystatin 15 GM cream 15 gm Topical PRN RF: 0 pantoprazole 40 mg tablet,delayed release (DR/EC) 40 mg PO DAILY Qty: 90 RF: 0 bupropion HCl [Wellbutrin XL] 300 mg tablet extended release 24 hr 300 mg PO DAILY Qty: 90 RF: 3 citalopram 40 mg tablet 40 mg PO DAILY RF: 0 aspirin [Aspir-Low] 81 mg Tablet,Delayed Release (Dr/Ec) 81 mg PO DAILY RF: 0 ibuprofen 400 mg Tablet 400 mg PO PRN PRNRF: 0 multivitamin Capsule 1 cap PO HS RF: 0 Discontinued hydroxyzine HCl 50 mg tablet 50 mg PO BID RF: 0 No Action simvastatin 40 mg tablet 40 mg PO QPM Qty: 90 RF: 3 prochlorperazine maleate [Compazine] 10 mg tablet 10 mg PO Q8H PRN (Reason: nausea and vomiting) Qty: 5 RF: 0 Discharge Instructions Instructions: Depression (ED) Additional Instructions: Do not take simvastatin today or tomorrow. You may resume dosing on Sunday. Please contact your primary care physician to arrange follow-up. Please follow-up with your mental health treatment team. Call tomorrow. Return to the ER for any worsening or new concerning symptoms. If you are feeling unsafe, call 911 immediately. Referrals: Griselda Vides NP [Primary Care Provider] - Discharge Data Discharge Date/Time-TO BE ENTERED AT DEPARTURE: 01/20/19 22:25 Medical Decision Making <Blank Bland MD - Last Filed: 01/27/19 13:01> Awais Iqbal is a 48-year-old man with history of GERD, sleep apnea, hyperlipidemia, depression who presented to the emergency department after reportedly taking a significant amount of hydroxyzine and simvastatin in an attempt to self-harm. On exam patient is tearful but nontoxic appearing. He is slightly flushed. Pupils are 3 mm bilaterally. His skin is dry. He is tachycardic in the 110s. His neuro exam is benign. Concern for suicidality, anticholinergic overdose, possible other overdose. Plan for EKG, screening labs, IV fluid hydration, telemetry. Will give him 1 mg IV Ativan. Will attempt p.o. charcoal given reported significant ingestion. 12:10 patient not tolerating charcoal p.o., will hold at this time. Did not vomit. Discussed patient with poison control at 12:20, recommends standard treatment for anticholinergic toxicity, no recommendations for simvastatin ingestion. Patient sleeping, heart rate 100-110 on monitor. He is easily arousable, has no complaints. We will continue to monitor. EKG shows sinus tach at 106, normal axis, QRS 104, QTC 489, no acute ischemic changes, nondiagnostic EKG 1600: Patient with heart rate between 90 and 100. He has no complaints. No agitation, benign physical exam. Given physical exam, vital signs, doubt actual ingestion as reported by patient. We will continue to observe. Patient signed out to Dr. Bland at time of shift change with repeat EKG, 4-hour Tylenol, 6-hour observation, and mental health evaluation pending. Clinical impression: Intentional overdose Disposition: still a patient Medical Records Medical records reviewed: Yes I reviewed the patient's medical records. Lab Data Lab results reviewed: Yes I reviewed the patient's lab results. <Ashkan Bland MD - Last Filed: 01/20/19 22:15> 18:30 -- -- Second tylenol neg. Repeat ecg reviewed and interpreted by me: No significant changes from prior - QTc 489. No signs of persistent anticholinergic toxicity or other toxidrome. Patient medically stable for mental health evaluation 22:00 --Patient was seen by mental health licensing worker and felt stable for discharge with outpatient follow-up which she will assist in arranging. I reassessed the patient and had lengthy conversation. Patient came to the emergency department voluntarily today. He is remained here voluntarily during prolonged ED course. He notes that he feels much better and no longer feels suicidal. He believes it was a mistake to attempt to overdose today. He does still feel depressed but specifically notes he has motivation for living including his granddaughters. He states that he feels safe going back to his current living situation with family. I did speak with the patient's sister and updated her as to ED course. Patient screener spoke with patient's family and Mrs. Mendoza who will agree to accept Mr. Beck back into their home. Disposition decision was made weighing the risks and benefits of hospitalization versus outpatient treatment, the risk for further decompensation, and the patient's wishes. The patient was stable and requested discharge. Prior to discharge, my usual and customary return precautions were reviewed with the patient - this included follow-up instructions and reason to return to the emergency department if condition worsens, does not improve as expected, or other new concerns arise. HPI <Blank Bland MD - Last Filed: 01/27/19 13:01> General Mode of arrival: EMS. Date/Time Provider Initiated Documentation: 01/20/19 11:55. Limitations to Documentation: no limitations. Information obtained by: patient, EMS, RN notes reviewed and old records reviewed. HPI Narrative: Awais Beck is a 48-year-old man with history of GERD, hyperlipidemia, sleep apnea, depression presenting to the emergency department with intentional overdose. Patient reports that he stopped taking his depression medications 2 days ago. He has been feeling overwhelmed, and wanted to kill himself. He intentionally took hydroxyzine and simvastatin in overdose this morning, followed by a small amount of alcohol. Patient denies any other ingestions or attempts to harm himself today. He states that he took a full bottle of hydroxyzine, that had 60 tabs of 50 mg hydroxyzine. He reports that he took some extra hydroxyzine from another bottle in addition, but does not know how much that was. He also reports that he took about half a bottle of simvastatin. Patient brings with him 1 bottle of hydroxyzine, which is empty and was filled in October for 60 tabs of 50 mg hydroxyzine. There are no other pole bottles available at this time. Reports feeling mildly nauseous. He denies pain or any other symptoms. Other than his depression, he was previously in his usual state of health, eating and drinking as usual. Related Data Home Medications Medication Instructions Recorded Confirmed nystatin 15 gm TOPICAL PRN 03/22/17 01/25/19 simvastatin 40 mg tablet 40 mg PO QPM #90 tab-cap 06/25/18 01/25/19 aspirin [Aspir-Low] 81 mg PO DAILY 10/31/18 01/25/19 pantoprazole 40 mg tablet,delayed 40 mg PO DAILY #90 tab-cap 11/20/18 01/25/19 release bupropion HCl XL 300 mg 24 hr 300 mg PO DAILY #90 tab-cap 12/02/18 01/25/19 tablet, extended release citalopram 40 mg tablet 40 mg PO DAILY 12/13/18 01/25/19 ibuprofen 400 mg PO PRN PRN 12/30/18 01/25/19 multivitamin 1 cap PO HS 12/30/18 01/25/19 prochlorperazine maleate 10 mg PO Q8H PRN #5 tab 01/25/19 [Compazine] Previous Rx's Medication Instructions Recorded simvastatin 40 mg tablet 40 mg PO QPM #90 tab-cap 06/25/18 pantoprazole 40 mg tablet,delayed 40 mg PO DAILY #90 tab-cap 11/20/18 release bupropion HCl XL 300 mg 24 hr 300 mg PO DAILY #90 tab-cap 12/02/18 tablet, extended release prochlorperazine maleate 10 mg PO Q8H PRN #5 tab 01/25/19 [Compazine] Allergies Allergy/AdvReac Type Severity Reaction Status Date / Time nicotine [From [facility]] AdvReac headaches Unverified 01/25/19 19:44 ivory soap Allergy Mild Itching Uncoded 01/25/19 19:44 General DIOMEDES: 3 Review of Systems <Blank Bland MD - Last Filed: 01/27/19 13:01> Review of Systems Constitutional: denies fevers Eyes: denies eye pain ENT: denies facial pain, dental pain, sore throat Cardiovascular: denies chest pain, edema Respiratory: denies SOB, cough GI: denies abdominal pain, vomiting, diarrhea : denies flank pain MSK: denies back pain, neck pain, arthralgias, myalgias Skin: denies rash Neuro: denies headaches, numbness, weakness PFSH <Blank Bland MD - Last Filed: 01/27/19 13:01> Social History Smoking/Tobacco Use Status: Former Tobacco Use Quit Date: 10/22/17 Alcohol Intake: current Alcohol Intake frequency: holidays/special occasions only Drug use: Never Substance use type: does not use Household members: children Number of Children: 3 Pets and animals: Yes Pets and animals: cat(s), dog(s), snake(s) and other Details: pankaj Current gender identity: male What type of physical activity do you participate in: none Do you feel safe at home: Yes Do you feel safe in your relationship?: Yes Exam <Blank Bland MD - Last Filed: 01/27/19 13:01> Narrative Exam Narrative: Constitutional: well and [id number], pleasant, conversing normally HENT: head atraumatic/normocephalic/normal inspection, mucous membranes moist, face mildly flushed and dry Eyes: conjunctiva normal, sclera normal, pupils 3mm b/l Neck: no stridor, normal ROM, trachea midline Chest: normal inspection Resp: normal work of breathing, LCTAB Cardio: Tachycardic 110, normal rhythm, no murmur appreciated GI: abdomen soft, non-tender, non-distended Back: normal inspection, no rash Skin: warm, dry, normal color, no rash Neuro: alert, not altered, grossly non-focal, normal tone, no clonus, no rigidity Ext: no edema Psych: Somewhat tearful, normal affect, no apparent hallucinations Sign Out <Blank Bland MD - Last Filed: 01/27/19 13:01> Sign Out Data: Sign Out Comment: Patient signed out to Dr. Bland at time of shift change with repeat acetaminophen, medical clearance, and evaluation by mental health pending. Last updated by Blank Bland MD at 01/20/19 16:04
[2019-01-20] MEDS: LORazepam 2 MG/ML VIAL 1 MG IVP (12:14)
[2019-01-20] MEDS: Charcoal/Aqueous 50 GM TUBE PO (12:14)
[2019-01-20] MEDS: Normal Saline 1,000 ML 1000 ML IV ×2 (12:14→14:09)
--- NOTE | 2019-01-20 12:20 | ED.GENADUL_ITS ---
Discharge Plan Disposition Patient Disposition: HOME Discharge Details Chief Complaint: OD/Poison Clinical Impression: Depression, Suicide attempt Primary Care Provider: Griselda Vides ED Provider: Ashkan Bland Home Meds and New Rx's Prescriptions: Continued nystatin 15 GM cream 15 gm Topical PRN RF: 0 pantoprazole 40 mg tablet,delayed release (DR/EC) 40 mg PO DAILY Qty: 90 RF: 0 bupropion HCl [Wellbutrin XL] 300 mg tablet extended release 24 hr 300 mg PO DAILY Qty: 90 RF: 3 citalopram 40 mg tablet 40 mg PO DAILY RF: 0 aspirin [Aspir-Low] 81 mg Tablet,Delayed Release (Dr/Ec) 81 mg PO DAILY RF: 0 ibuprofen 400 mg Tablet 400 mg PO PRN PRNRF: 0 multivitamin Capsule 1 cap PO HS RF: 0 Discontinued hydroxyzine HCl 50 mg tablet 50 mg PO BID RF: 0 No Action simvastatin 40 mg tablet 40 mg PO QPM Qty: 90 RF: 3 prochlorperazine maleate [Compazine] 10 mg tablet 10 mg PO Q8H PRN (Reason: nausea and vomiting) Qty: 5 RF: 0 Discharge Instructions Instructions: Depression (ED) Additional Instructions: Do not take simvastatin today or tomorrow. You may resume dosing on Sunday. Please contact your primary care physician to arrange follow-up. Please follow-up with your mental health treatment team. Call tomorrow. Return to the ER for any worsening or new concerning symptoms. If you are feeling unsafe, call 911 immediately. Referrals: Griselda Vides NP [Primary Care Provider] - Discharge Data Discharge Date/Time-TO BE ENTERED AT DEPARTURE: 01/20/19 22:25 Medical Decision Making <Blank Bland MD - Last Filed: 01/27/19 13:01> Awais Iqbal is a 48-year-old man with history of GERD, sleep apnea, hyperlipidemia, depression who presented to the emergency department after reportedly taking a significant amount of hydroxyzine and simvastatin in an attempt to self-harm. On exam patient is tearful but nontoxic appearing. He is slightly flushed. Pupils are 3 mm bilaterally. His skin is dry. He is tachycardic in the 110s. His neuro exam is benign. Concern for suicidality, anticholinergic overdose, possible other overdose. Plan for EKG, screening labs, IV fluid hydration, telemetry. Will give him 1 mg IV Ativan. Will attempt p.o. charcoal given reported significant ingestion. 12:10 patient not tolerating charcoal p.o., will hold at this time. Did not vomit. Discussed patient with poison control at 12:20, recommends standard treatment for anticholinergic toxicity, no recommendations for simvastatin ingestion. Patient sleeping, heart rate 100-110 on monitor. He is easily arousable, has no complaints. We will continue to monitor. EKG shows sinus tach at 106, normal axis, QRS 104, QTC 489, no acute ischemic changes, nondiagnostic EKG 1600: Patient with heart rate between 90 and 100. He has no complaints. No agitation, benign physical exam. Given physical exam, vital signs, doubt actual ingestion as reported by patient. We will continue to observe. Patient signed out to Dr. Bland at time of shift change with repeat EKG, 4-hour Tylenol, 6- hour observation, and mental health evaluation pending. Clinical impression: Intentional overdose Disposition: still a patient Medical Records Medical records reviewed: Yes I reviewed the patient's medical records. Lab Data Lab results reviewed: Yes I reviewed the patient's lab results. <Ashkan Bland MD - Last Filed: 01/20/19 22:15> 18:30 -- -- Second tylenol neg. Repeat ecg reviewed and interpreted by me: No significant changes from prior - QTc 489. No signs of persistent anticholinergic toxicity or other toxidrome. Patient medically stable for mental health evaluation 22:00 --Patient was seen by mental health commissary worker and felt stable for discharge with outpatient follow-up which she will assist in arranging. I reassessed the patient and had lengthy conversation. Patient came to the emergency department voluntarily today. He is remained here voluntarily during prolonged ED course. He notes that he feels much better and no longer feels suicidal. He believes it was a mistake to attempt to overdose today. He does still feel depressed but specifically notes he has motivation for living including his granddaughters. He states that he feels safe going back to his current living situation with family. I did speak with the patient's sister and updated her as to ED course. Patient screener spoke with patient's family and Mrs. Mendoza who will agree to accept Mr. Beck back into their home. Disposition decision was made weighing the risks and benefits of hospitalization versus outpatient treatment, the risk for further decompensation, and the patient's wishes. The patient was stable and requested discharge. Prior to discharge, my usual and customary return precautions were reviewed with the patient - this included follow-up instructions and reason to return to the emergency department if condition worsens, does not improve as expected, or other new concerns arise. HPI <Blank Bland MD - Last Filed: 01/27/19 13:01> General Mode of arrival: EMS . Date/Time Provider Initiated Documentation: 01/20/19 11:55 . Limitations to Documentation: no limitations . Information obtained by: patient, EMS, RN notes reviewed and old records reviewed . HPI Narrative: Awais eBck is a 48-year-old man with history of GERD, hyperlipidemia, sleep apnea, depression presenting to the emergency department with intentional overdose. Patient reports that he stopped taking his depression medications 2 days ago. He has been feeling overwhelmed, and wanted to kill himself. He intentionally took hydroxyzine and simvastatin in overdose this morning, followed by a small amount of alcohol. Patient denies any other ingestions or attempts to harm himself today. He states that he took a full bottle of hydroxyzine, that had 60 tabs of 50 mg hydroxyzine. He reports that he took some extra hydroxyzine from another bottle in addition, but does not know how much that was. He also reports that he took about half a bottle of simvastatin. Patient brings with him 1 bottle of hydroxyzine, which is empty and was filled in October for 60 tabs of 50 mg hydroxyzine. There are no other pole bottles available at this time. Reports feeling mildly nauseous. He denies pain or any other symptoms. Other than his depression, he was previously in his usual state of health, eating and drinking as usual. Related Data Home Medications Medication Instructions Recorded Confirmed nystatin 15 gm TOPICAL PRN 03/22/17 01/25/19 simvastatin 40 mg tablet 40 mg PO QPM #90 tab-cap 06/25/18 01/25/19 aspirin [Aspir-Low] 81 mg PO DAILY 10/31/18 01/25/19 pantoprazole 40 mg tablet,delayed 40 mg PO DAILY #90 tab-cap 11/20/18 01/25/19 release bupropion HCl XL 300 mg 24 hr 300 mg PO DAILY #90 tab-cap 12/02/18 01/25/19 tablet, extended release citalopram 40 mg tablet 40 mg PO DAILY 12/13/18 01/25/19 ibuprofen 400 mg PO PRN PRN 12/30/18 01/25/19 multivitamin 1 cap PO HS 12/30/18 01/25/19 prochlorperazine maleate 10 mg PO Q8H PRN #5 tab 01/25/19 [Compazine] Previous Rx's Medication Instructions Recorded simvastatin 40 mg tablet 40 mg PO QPM #90 tab-cap 06/25/18 pantoprazole 40 mg tablet,delayed 40 mg PO DAILY #90 tab-cap 11/20/18 release bupropion HCl XL 300 mg 24 hr 300 mg PO DAILY #90 tab-cap 12/02/18 tablet, extended release prochlorperazine maleate 10 mg PO Q8H PRN #5 tab 01/25/19 [Compazine] Allergies Allergy/AdvReac Type Severity Reaction Status Date / Time nicotine [From [facility]] AdvReac headaches Unverified 01/25/19 19:44 ivory soap Allergy Mild Itching Uncoded 01/25/19 19:44 General DIOMEDES: 3 Review of Systems <Blank Bland MD - Last Filed: 01/27/19 13:01> Review of Systems Constitutional: denies fevers Eyes: denies eye pain ENT: denies facial pain, dental pain, sore throat Cardiovascular: denies chest pain, edema Respiratory: denies SOB, cough GI: denies abdominal pain, vomiting, diarrhea : denies flank pain MSK: denies back pain, neck pain, arthralgias, myalgias Skin: denies rash Neuro: denies headaches, numbness, weakness PFSH <Blank Bland MD - Last Filed: 01/27/19 13:01> Social History Smoking/Tobacco Use Status: Former Tobacco Use Quit Date: 10/22/17 Alcohol Intake: current Alcohol Intake frequency: holidays/special occasions only Drug use: Never Substance use type: does not use Household members: children Number of Children: 3 Pets and animals: Yes Pets and animals: cat(s), dog(s), snake(s) and other Details: pankaj Current gender identity: male What type of physical activity do you participate in: none Do you feel safe at home: Yes Do you feel safe in your relationship?: Yes Exam <Blank Bland MD - Last Filed: 01/27/19 13:01> Narrative Exam Narrative: Constitutional: well and [id number], pleasant, conversing normally HENT: head atraumatic/normocephalic/normal inspection, mucous membranes moist, face mildly flushed and dry Eyes: conjunctiva normal, sclera normal, pupils 3mm b/l Neck: no stridor, normal ROM, trachea midline Chest: normal inspection Resp: normal work of breathing, LCTAB Cardio: Tachycardic 110, normal rhythm, no murmur appreciated GI: abdomen soft, non-tender, non-distended Back: normal inspection, no rash Skin: warm, dry, normal color, no rash Neuro: alert, not altered, grossly non-focal, normal tone, no clonus, no rigidity Ext: no edema Psych: Somewhat tearful, normal affect, no apparent hallucinations Sign Out <Blank Bland MD - Last Filed: 01/27/19 13:01> Sign Out Data: Sign Out Comment: Patient signed out to Dr. Bland at time of shift change with repeat acetaminophen, medical clearance, and evaluation by mental health pending. Last updated by Blank Bland MD at 01/20/19 16:04
[2019-01-20 12:36] LABS: Bilirubin Negative (Negative); Blood Negative (Negative); Clarity Clear; Glucose Negative (Negative); Ketones Negative (Negative); Leukocyte Esterase Negative (Negative); Nitrite Negative (Negative); Urobilinogen 0.2 EU/dL (Up TO 0.2); pH 6.5 (5-8)
--- NOTE | 2019-01-20 12:37 | NUR.NOTE ---
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
[2019-01-20 12:42] LABS: Abs Immature Grans 0.01 k/cumm (0.0-0.09); Absolute Basophil Count 0.03 k/cumm (0.0-0.2); Absolute Eosinophil Count 0.05 k/cumm (0.0-0.7); Absolute Lymphocyte Count 2.22 k/cumm (1.2-3.4); Absolute Monocyte Count 0.49 k/cumm (0.11-0.7); Absolute Neutrophil Count 3.75 k/cumm (1.2-6.7); Basophils % 0.5; Eosinophils % 0.8; HCT 43.1 % (40.0-50.0); HGB 14.5 g/dL (13.5-17.5); Immature Grans % 0.2; Lymphocytes % 33.9; Mean Corp. HGB Concentration 33.6 g/dL (32.0-36.0); Mean Corpuscular Hemoglobin 29.9 pg (27.0-33.0); Mean Corpuscular Volume 88.9 fL (80-95); Mean Platelet Volume 8.6 fL (8.0-11.0); Monocytes % 7.5; Neutrophils % 57.1; Platelet Count 229 x1000/uL (130-400); RBC 4.85 m/cumm (4.50-6.00); RBC Distribution Width 12.9 % (11.8-14.1); White Blood Cell Count 6.55 k/cumm (4.4-10.8)
[2019-01-20 12:53] LABS: *AMPHETAMINES SCREEN URINE Negative (Negative); *BARBITURATES SCREEN URINE Negative (Negative); *BENZODIAZEPINES SCREEN URINE Negative (Negative); Cannabinoids THC Negative (Negative); Cocaine Screen,Urine Negative (Negative); METHADONE URINE SCREEN Negative (Negative); OPIATES URINE SCREEN Negative (Negative); Tricyclic Antidepressants Negative (Negative)
[2019-01-20 12:57] LABS: ALT 120 U/L (12-78); AST 46 U/L (15-37); Albumin 4.1 g/dL (3.4-5.0); Alkaline Phosphatase 131 U/L (46-116); Anion Gap 13.6 mmol/L (3-11); BUN 14 mg/dL (7-18); Bilirubin, Total 0.2 mg/dL (0.2-1.0); CO2 24.4 mmol/L (21.0-32.0); CREATININE 1.06 mg/dL (0.70-1.30); Chloride 105 mmol/L (98-107); Glucose 188 mg/dL (70-100); Potassium 3.8 mmol/L (3.5-5.1); Sodium 143 mmol/L (136-145); Total Protein 7.9 g/dL (6.4-8.2)
[2019-01-20 13:14] LABS: Salicylate < 2.8 mg/dL (2.8-20.0)
[2019-01-20 13:17] LABS: Acetaminophen < 2 ug/mL (10-30)
--- NOTE | 2019-01-20 13:43 | PDOC.ERCMPRO ---
Care Management Progress Note 01/20-This CM received a phone call from Luna Mendoza. Luna states that Awais lives with her, her and their two daughters. Luna states that she and her do not want Awais to come back to their house. Luna states that she is afraid that he will do this in front of her daughters. Luna states that Awais has been living with them since June when her mother in law passed. Awais was her mother in laws boyfriend and they were trying to help him out and get back on his feet. Luna states that they told Awais this morning that he needed to find another place to live so they could get their home back. Within one hour, Luna states that Awais took the pills. Luna also states that Awais has not been taking his depression medication because he states his insurance stopped paying for it. Awais does have [place] Medicaid so Care Management will need to look into this before discharge.
[2019-01-20 16:32] LABS: Acetaminophen < 2 ug/mL (10-30)
--- NOTE | 2019-01-20 19:45 | PDOC.MHCN ---
Date of service: 01/20/19 Time of Service: 19:45 Mental Health Crisis Note Presenting Issue How did you arrive at the ED and why did you come: The patient took some pills in an attempt to take his life. He swallowed them down with alcohol . An ambulance brought him to the ER Precipitating Factors This patient staes the gesture was impulsive due tohis step children telling him he has to move out of the house he lives in. He has been living with them for a year, he has no income, no social security or disa bility. He says he is not suicidal now but he is depressed and suffers from anxiety. Disposition BEHAVIOR: He is calm and cooperative EYE CONTACT: He makes good eye contact MOOD: His mood is depressed and anxious. AFFECT: His affecdt is flat. APPETITE: he has good appetitie. SLEEP(trouble falling/staying asleep: No trouble with sleep Plan He feels that he will not harm himself , it is depressing to try to get services. [facility] will follow up and try to help him get connected to some services. He has difficulty talking to people but he will try. He also sees Dr. Jean in [facility] and will keep an appointment with him. Signature Clinician's Name/Title: Aishwarya Rascon, [facility]
--- NOTE | 2019-01-20 19:53 | PDOC.MHCN_ITS ---
Date of service: 01/20/19 Time of Service: 19:45 Mental Health Crisis Note Presenting Issue How did you arrive at the ED and why did you come: The patient took some pills in an attempt to take his life. He swallowed them down with alcohol . An ambulance brought him to the ER Precipitating Factors This patient staes the gesture was impulsive due tohis step children telling him he has to move out of the house he lives in. He has been living with them for a year, he has no income, no social security or disa bility. He says he is not suicidal now but he is depressed and suffers from anxiety. Disposition BEHAVIOR: He is calm and cooperative EYE CONTACT: He makes good eye contact MOOD: His mood is depressed and anxious. AFFECT: His affecdt is flat. APPETITE: he has good appetitie. SLEEP(trouble falling/staying asleep: No trouble with sleep Plan He feels that he will not harm himself , it is depressing to try to get services. [facility] will follow up and try to help him get connected to some services. He has difficulty talking to people but he will try. He also sees Dr. Jean in [facility] and will keep an appointment with him. Signature Clinician's Name/Title: Aishwarya Rascon, [facility]
== END 2019-01-20 22:25 | disposition home or self-care (01) ==
PROVIDERS: Student in an Organized Health Care Education/Training Program; Emergency Provider Student in an Organized Health Care Education/Training Program; PCP Nurse Practitioner Family
DX: T46.6X2A Poisoning by antihyperlipidemic and antiarteriosclerotic drugs, intentional self-harm, initial encounter (principal); T43.592A Poisoning by other antipsychotics and neuroleptics, intentional self-harm, initial encounter; F32.9 Major depressive disorder, single episode, unspecified; R00.0 Tachycardia, unspecified
CPT/HCPCS: 36415; 80053; 80307; 93005; 96361; 96374; 99285; 80320; 80329; 81003; 85025; 93010; 99284; J2060

== ENCOUNTER 2019-01-25 19:37 | Emergency (ER) | payer MEDICAID, SELFPAY ==
[2019-01-25 19:40] VITALS: BP 129/83; PULSE 122; RESP 18; TEMP 36.7; O2SAT 98
--- NOTE | 2019-01-25 19:51 | ED.GENADUL_ITS ---
Discharge Plan Disposition Patient Disposition: HOME Condition: Improving Discharge Details Chief Complaint: Nausea/Vomit/Diar Clinical Impression: Nausea and vomiting, Abdominal pain Primary Care Provider: Griselda Vides ED Provider: Aileen Ram Home Meds and New Rx's Prescriptions: New prochlorperazine maleate [Compazine] 10 mg tablet 10 mg PO Q8H PRN (Reason: nausea and vomiting) Qty: 5 RF: 0 Continued nystatin 15 GM cream 15 gm Topical PRN RF: 0 simvastatin 40 mg tablet 40 mg PO QPM Qty: 90 RF: 3 pantoprazole 40 mg tablet,delayed release (DR/EC) 40 mg PO DAILY Qty: 90 RF: 0 bupropion HCl [Wellbutrin XL] 300 mg tablet extended release 24 hr 300 mg PO DAILY Qty: 90 RF: 3 citalopram 40 mg tablet 40 mg PO DAILY RF: 0 aspirin [Aspir-Low] 81 mg Tablet,Delayed Release (Dr/Ec) 81 mg PO DAILY RF: 0 ibuprofen 400 mg Tablet 400 mg PO PRN PRNRF: 0 multivitamin Capsule 1 cap PO HS RF: 0 Discharge Instructions Instructions: Acute Nausea and Vomiting (ED), Abdominal Pain (ED) Additional Instructions: Your gallbladder was noted to be distended on CAT scan today. There were no other findings to indicate an infection of your gallbladder. Drink plenty of fluids and get plenty of rest. Alternate tylenol and motrin as needed and directed for pain. Take the compazine as needed and directed for nausea or vomiting. Follow up with your primary care doctor in 1 week for re-evaluation. Return immediately to the emergency department with any worsening or new concerning symptoms. Discharge Data Discharge Physician: Aileen Ram Medical Decision Making 48-year-old male with history of hyperlipidemia, depression, obstructive sleep apnea who presents with nausea, epigastric and right upper quadrant abdominal pain since this morning. Admits to low-grade temp of 100.3 at home prior to arrival. Admits to a recent sick contact with vomiting. Heart rate 122 on arrival, now 90s. Remainder vitals within normal limits. Patient appears nontoxic. Patient has epigastric and right upper quadrant tenderness to palpation. Differential diagnosis includes gastroenteritis, cholecystitis, appendicitis, pancreatitis. Will place an IV, bolus IV fluids, labs, CT abdomen and pelvis, give a dose of Compazine and Toradol and reassess. 2044 --patient states he feels better. Nausea and pain improved. Labs reviewed and unremarkable. Normal white blood cell count, electrolytes. No significant change in chronic elevation in liver enzymes. Lipase negative. 2144 --CT reviewed and notes distended gallbladder but no other findings to indicate acute cholecystitis. There is also nonspecific air-fluid levels which can be seen with diarrheal illness. Patient states he feels much better and feels good to go home. Discussed with patient that there are no findings indicate an infection of his gallbladder, but if symptoms do not improve or worsen, to return to the emergency department for reevaluation. Discussed that there is no ultrasound available on the weekend, but would be available on Sunday morning. We will send home with 1 tab of Compazine as well as prescription. He is instructed to drink plenty of fluids, get plenty of rest, follow up with his primary care doctor for reevaluation and to return here at any time if worse. Medical Records Medical records reviewed: Yes I reviewed the patient's medical records. Imaging Data Radiologic Study: Radiologist's impression: CT Abdomen and Pelvis With Contrast EXAM DATE/TIME: 01/25/2019 8:06 PM FINDINGS: Lower thorax: No acute findings. ABDOMEN: Liver: Diffuse fatty infiltration of the liver. Gallbladder and bile ducts: Distended gallbladder. No gallbladder wall thickening or calcified gallstones. No pericholecystic inflammation. Normal caliber common bile duct. Pancreas: Unremarkable. No ductal dilation. Spleen: Unremarkable. No splenomegaly. Adrenals: Normal. No mass. Kidneys and ureters: Tiny exophytic cyst within the right kidney midpole. Normal left kidney. No renal stone or hydronephrosis. Stomach and bowel: Nonspecific air-fluid levels within the colon, which may be seen with diarrhea, illness. No colitis or diverticulitis. Unremarkable stomach and small bowel. Appendix: No evidence of appendicitis. PELVIS: Bladder: Unremarkable as visualized. Reproductive: Unremarkable as visualized. ABDOMEN and PELVIS: Intraperitoneal space: Unremarkable. No free air. No significant fluid collection. Bones/joints: No acute fracture. Soft tissues: Unremarkable. Vasculature: Unremarkable. No abdominal aortic aneurysm. Lymph nodes: Unremarkable. No enlarged lymph nodes. IMPRESSION: 1. Distended gallbladder. No gallbladder wall thickening, calcified, stones or pericholecystic inflammation is present to indicate acute cholecystitis. 2. Fatty infiltration of the liver. 3. Nonspecific air-fluid levels throughout the colon, which may be seen with diarrhea, illness. Lab Data Lab results reviewed: Yes I reviewed the patient's lab results. Laboratory Tests Range/Units 01/25/19 01/25/19 01/25/19 19:55 19:55 19:55 WBC (4.4-10.8) k/cumm 6.73 RBC (4.50-6.00) m/cumm 5.14 Hgb (13.5-17.5) g/dL 15.2 Hct (40.0-50.0) % 45.6 MCV (80-95) fL 88.7 MCH (27.0-33.0) pg 29.6 MCHC (32.0-36.0) g/dL 33.3 RDW (11.8-14.1) % 13.3 Plt Count (130-400) x1000/uL 237 MPV (8.0-11.0) fL 8.2 Immature Gran % 0.1 Neutrophils % 77.8 Lymphocytes % 14.4 Monocytes % 7.4 Eosinophils % 0.0 Basophils % 0.3 Absolute Neutrophils (1.2-6.7) k/cumm 5.23 Absolute Lymphocytes (1.2-3.4) k/cumm 0.97 L Absolute Monocytes (0.11-0.7) k/cumm 0.50 Absolute Eosinophils (0.0-0.7) k/cumm 0.00 Absolute Basophils (0.0-0.2) k/cumm 0.02 Sodium (136-145) mmol/L 141 Potassium (3.5-5.1) mmol/L 3.9 Chloride (98-107) mmol/L 103 Carbon Dioxide (21.0-32.0) mmol/L 27.1 Anion Gap (3-11) mmol/L 10.9 BUN (7-18) mg/dL 18 Creatinine (0.70-1.30) mg/dL 1.18 Estimated GFR/1.73 m2 (mL/min/1.73m2) >= 60.00 Glucose (70-100) mg/dL 102 H Calcium (8.5-10.1) mg/dL 8.7 Total Bilirubin (0.2-1.0) mg/dL 0.5 AST (15-37) U/L 51 H ALT (12-78) U/L 111 H Alkaline Phosphatase (46-116) U/L 121 H Total Protein (6.4-8.2) g/dL 8.6 H Albumin (3.4-5.0) g/dL 4.4 Lipase (73-393) U/L 137 HPI General Mode of arrival: ambulatory . Date/Time Provider Initiated Documentation: 01/25/19 19:43 . Limitations to Documentation: no limitations . Information obtained by: patient . HPI Narrative: Patient is a 48-year-old male with a history of hyperlipidemia, depression, obstructive sleep apnea who presents with nausea and abdominal pain since this morning. He states he has been mainly dry heaving throughout the day and has not vomited. He states his abdominal pain is intermittent, sharp, epigastric, worse with movement and better with nothing. He states the abdominal pain is currently 2/10. He took Pepto-Bismol without relief. He states prior to arrival his temperature at home was 100.3. He last took Tylenol at 9 AM this morning for a headache but states this is now resolved. He was seen here 5 days ago following a medication overdose/suicide attempt with hydroxyzine and simvastatin and was medically cleared and then no longer suicidal and discharged home. He states he has not taken any other additional medication since then. He states he had been feeling fine since then until this morning. He states his granddaughter vomited once on him recently in the past few days. He denies any diarrhea, urinary symptoms, recent travel, recent antibiotics. Related Data Home Medications Medication Instructions Recorded Confirmed nystatin 15 gm TOPICAL PRN 03/22/17 01/25/19 simvastatin 40 mg tablet 40 mg PO QPM #90 tab-cap 06/25/18 01/25/19 aspirin [Aspir-Low] 81 mg PO DAILY 10/31/18 01/25/19 pantoprazole 40 mg tablet,delayed 40 mg PO DAILY #90 tab-cap 11/20/18 01/25/19 release bupropion HCl XL 300 mg 24 hr 300 mg PO DAILY #90 tab-cap 12/02/18 01/25/19 tablet, extended release citalopram 40 mg tablet 40 mg PO DAILY 12/13/18 01/25/19 ibuprofen 400 mg PO PRN PRN 12/30/18 01/25/19 multivitamin 1 cap PO HS 12/30/18 01/25/19 prochlorperazine maleate 10 mg PO Q8H PRN #5 tab 01/25/19 [Compazine] Previous Rx's Medication Instructions Recorded simvastatin 40 mg tablet 40 mg PO QPM #90 tab-cap 06/25/18 pantoprazole 40 mg tablet,delayed 40 mg PO DAILY #90 tab-cap 11/20/18 release bupropion HCl XL 300 mg 24 hr 300 mg PO DAILY #90 tab-cap 12/02/18 tablet, extended release prochlorperazine maleate 10 mg PO Q8H PRN #5 tab 01/25/19 [Compazine] Allergies Allergy/AdvReac Type Severity Reaction Status Date / Time nicotine [From [facility]] AdvReac headaches Unverified 01/25/19 19:44 ivory soap Allergy Mild Itching Uncoded 01/25/19 19:44 General Stated Complaint: Nausea/Vomit/Diar DIOMEDES: 3 Review of Systems Review of Systems All systems reviewed & are unremarkable except as noted in HPI and below Constitutional Reports as per HPI, Denies chills and Denies fever(s) Eyes Denies blurry vision ENT Denies dizziness, Denies sore throat and Denies throat swelling Cardiovascular Denies chest pain and Denies dyspnea Respiratory Denies cough and Denies dyspnea Gastrointestinal Reports abdominal pain, Denies diarrhea and Denies vomiting Genitourinary Denies hematuria and Denies dysuria Musculoskeletal Denies back pain and Denies numbness Integumentary/Breasts Denies lesions and Denies rash Neurologic Denies dizziness, Denies focal weakness and Denies numbness Allergic/Immunologic Denies throat swelling [facility] Medical History Obesity (BMI 30-39.9) (Chronic) Diverticulosis (Chronic) Chronic back pain (Chronic) Chronic pain of both knees (Chronic) Depression (Chronic) Gastritis (Resolved 10/09/11) Gastroesophageal reflux disease (Chronic) Generalized osteoarthritis (Chronic 02/21/18) Hyperlipidemia, unspecified (Chronic) Obstructive sleep apnea (Chronic 10/04/17) Seborrheic dermatitis (Chronic) Tobacco use disorder (Chronic) Pancreatitis (Resolved 01/23/18) Surgical History EGD (Resolved) Extraction of cataract (Resolved) hand surgery (Resolved) Family History Mother Depression Heart disease Hypertension Father Heart disease Stroke Sister Alzheimers disease Breast cancer Social History Smoking/Tobacco Use Status: Former Tobacco Use Quit Date: 10/22/17 Alcohol Intake: current Alcohol Intake frequency: holidays/special occasions only Drug use: Never Substance use type: does not use Household members: children Number of Children: 3 Pets and animals: Yes Pets and animals: cat(s), dog(s), snake(s) and other Details: [email or web address] Current gender identity: male What type of physical activity do you participate in: none Do you feel safe at home: Yes Do you feel safe in your relationship?: Yes Exam Const General: cooperative and no acute distress HENMT Head: normal to inspection Face and sinus: normal facial exam Eyes General: appearance normal, both eyes and all related structures EOM: EOM intact bilaterally Neck Neck: normal visual inspection and No submandibular swelling Lymphatic: no lymphadenopathy noted Chest Chest: normal inspection of the chest and no tenderness Resp Effort & Inspection: normal respiratory effort and able to speak in complete sentences Auscultation: clear to auscultation bilaterally Cardio Rate: regular rate Rhythm: regular rhythm GI Inspection: normal to inspection Palpation: soft, not firm, not rigid and tender in the epigastrum and in the RUQ Auscultation: normal bowel sounds Skin General skin exam: no rashes or lesions noted Neuro General: alert, awake and oriented x3 Cognition: normal cognition Speech: speech normal Motor: muscle tone normal throughout Sensory Exam: no sensory deficits noted Extrem General: normal to inspection, full ROM and no edema Psych Appearance: grossly normal Mental Status: mental status grossly normal Speech and Movement: speech and movement normal Affect: normal affect Course Vital Signs Temperature 98.1 F 01/25/19 19:40 Pulse 122 H 01/25/19 19:40 Respiratory Rate 18 01/25/19 19:40 Blood Pressure 129/83 01/25/19 19:40 Pulse Oximetry 98 01/25/19 19:40 Temperature 98.1 F 01/25/19 19:40 Temperature Source Skin 01/25/19 19:40 Pulse 122 H 01/25/19 19:40 Respiratory Rate 18 01/25/19 19:40 Respiratory Effort Non-Labored 01/25/19 19:42 Blood Pressure 129/83 01/25/19 19:40 Pulse Oximetry 98 01/25/19 19:40 Pain Level 7 01/25/19 19:40
[2019-01-25] MEDS: Normal Saline 1,000 ML 1000 ML IV (20:01)
[2019-01-25 20:04] LABS: Abs Immature Grans 0.01 k/cumm (0.0-0.09); Absolute Basophil Count 0.02 k/cumm (0.0-0.2); Absolute Lymphocyte Count 0.97 k/cumm (1.2-3.4); Absolute Neutrophil Count 5.23 k/cumm (1.2-6.7); Basophils % 0.3; HCT 45.6 % (40.0-50.0); HGB 15.2 g/dL (13.5-17.5); Immature Grans % 0.1; Lymphocytes % 14.4; Mean Corp. HGB Concentration 33.3 g/dL (32.0-36.0); Mean Corpuscular Hemoglobin 29.6 pg (27.0-33.0); Mean Corpuscular Volume 88.7 fL (80-95); Mean Platelet Volume 8.2 fL (8.0-11.0); Monocytes % 7.4; Neutrophils % 77.8; Platelet Count 237 x1000/uL (130-400); RBC 5.14 m/cumm (4.50-6.00); RBC Distribution Width 13.3 % (11.8-14.1); White Blood Cell Count 6.73 k/cumm (4.4-10.8)
--- NOTE | 2019-01-25 20:04 | DI.CT_ITS ---
SYMPTOM/DIAGNOSIS: EPIGASTRIC AND RUQ ABD PAIN, ? PANCREATITIS OR ACUTE CHOLECYSTITIS ABDOMEN AND PELVIC CT: CT scan of the abdomen and pelvis was performed following the uneventful administration of intravenous contrast material. Comparison is made with 10/31/18. Mild dependent atelectatic changes are seen in the lung bases. There is diffuse decreased attenuation of the liver consistent with fatty infiltration. No suspicious hepatic mass is seen. The portal, superior mesenteric and splenic veins are patent. The gallbladder is distended but no stones, pericholecystic fluid, gallbladder wall thickening or biliary ductal dilatation is seen. The pancreas, spleen and adrenal glands are unremarkable. The kidneys show normal and symmetric enhancement. No suspicious solid renal mass or obstruction is identified. Note is made of a small simple cyst on the right kidney. The urinary bladder is intact and incompletely distended. Prostatic calcifications are seen. There is atherosclerosis of the abdominal aorta but no aneurysmal dilatation is seen. No significant abdominal or pelvic adenopathy, ascites or pneumoperitoneum is present. The bowel shows no evidence of obstruction. No findings to suggest an acute appendicitis are present. There are fluid levels seen in the colon. This can be seen with diarrheal illness. There is diverticulosis of the colon but no evidence of acute diverticulitis. Degenerative changes are seen in the spine. IMPRESSION: 1. Distended gallbladder but no evidence of cholelithiasis or findings to suggest acute cholecystitis. 2. Hepatic steatosis. 3. Nonspecific fluid levels seen in the colon. This can be seen with diarrheal illness.
[2019-01-25] MEDS: Prochlorperazine 10 MG/2 ML VIAL IVP (20:10)
[2019-01-25] MEDS: Ketorolac 30 MG/ML VIAL IVP (20:11)
[2019-01-25 20:14] LABS: ALT 111 U/L (12-78); AST 51 U/L (15-37); Albumin 4.4 g/dL (3.4-5.0); Alkaline Phosphatase 121 U/L (46-116); Anion Gap 10.9 mmol/L (3-11); BUN 18 mg/dL (7-18); Bilirubin, Total 0.5 mg/dL (0.2-1.0); CO2 27.1 mmol/L (21.0-32.0); CREATININE 1.18 mg/dL (0.70-1.30); Calcium 8.7 mg/dL (8.5-10.1); Chloride 103 mmol/L (98-107); Glucose 102 mg/dL (70-100); Potassium 3.9 mmol/L (3.5-5.1); Sodium 141 mmol/L (136-145); Total Protein 8.6 g/dL (6.4-8.2)
[2019-01-25 20:18] LABS: Lipase 137 U/L (73-393)
[2019-01-25] MEDS: Normal Saline Flush 10 ML SYR IVP (20:33)
[2019-01-25] MEDS: Omnipaque 350 MG/ML 100 ML BTL IJ (20:33)
[2019-01-25 21:07] VITALS: BP 127/61; PULSE 84; RESP 16; O2SAT 94
--- NOTE | 2019-01-25 21:42 | DI.VRAD_ITS ---
EXAM: CT Abdomen and Pelvis With Contrast EXAM DATE/TIME: 01/25/2019 8:06 PM CLINICAL HISTORY: 48 years old, male; Signs and symptoms; Other: Epigastric, ruq abd pain, R/O acute cholecystitis TECHNIQUE: Imaging protocol: Axial computed tomography images of the abdomen and pelvis with intravenous contrast. Coronal and sagittal reformatted images were created and reviewed. Radiation optimization: All CT scans at this facility use at least one of these dose optimization techniques: automated exposure control; mA and/or kV adjustment per patient size (includes targeted exams where dose is matched to clinical indication); or iterative reconstruction. Contrast material: omnipaque 350 Contrast volume: 100 ml Contrast route: iv COMPARISON: CT ABDOMEN PELVIS WO/W 10/31/2018 5:41 PM FINDINGS: Lower thorax: No acute findings. ABDOMEN: Liver: Diffuse fatty infiltration of the liver. Gallbladder and bile ducts: Distended gallbladder. No gallbladder wall thickening or calcified gallstones. No pericholecystic inflammation. Normal caliber common bile duct. Pancreas: Unremarkable. No ductal dilation. Spleen: Unremarkable. No splenomegaly. Adrenals: Normal. No mass. Kidneys and ureters: Tiny exophytic cyst within the right kidney midpole. Normal left kidney. No renal stone or hydronephrosis. Stomach and bowel: Nonspecific air-fluid levels within the colon, which may be seen with diarrhea, illness. No colitis or diverticulitis. Unremarkable stomach and small bowel. Appendix: No evidence of appendicitis. PELVIS: Bladder: Unremarkable as visualized. Reproductive: Unremarkable as visualized. ABDOMEN and PELVIS: Intraperitoneal space: Unremarkable. No free air. No significant fluid collection. Bones/joints: No acute fracture. Soft tissues: Unremarkable. Vasculature: Unremarkable. No abdominal aortic aneurysm. Lymph nodes: Unremarkable. No enlarged lymph nodes. IMPRESSION: 1. Distended gallbladder. No gallbladder wall thickening, calcified, stones or pericholecystic inflammation is present to indicate acute cholecystitis. 2. Fatty infiltration of the liver. 3. Nonspecific air-fluid levels throughout the colon, which may be seen with diarrhea, illness. Dictated and Authenticated by: Ryan Pavon MD. Ordering:LYNN Gallagher MD
[2019-01-25] MEDS: Prochlorperazine 10 MG TAB PO (22:06)
[2019-01-25 22:07] VITALS: BP 112/70; PULSE 79; RESP 20; O2SAT 93
== END 2019-01-25 22:14 | disposition home or self-care (01) ==
PROVIDERS: Emergency Provider Physician Assistant; PCP Nurse Practitioner Family
DX: R11.2 Nausea with vomiting, unspecified (principal); R10.13 Epigastric pain
CPT/HCPCS: 80053; 83690; 96361; 96374; 96375; 99285; 74177; 85025; 99284; J0780; J1885; J3490

== ENCOUNTER 2019-02-05 16:03 | Outpatient (CLI) | payer MEDICAID, SELFPAY ==
--- NOTE | 2019-02-05 14:30 | DI.RAD_ITS ---
SYMPTOMS/DIAGNOSIS: DYSPNEA, TOBACCO USE DISORDER, R06.00, F17.200, ? COPD PA AND LATERAL CHEST: The lungs are well expanded and free of infiltrate. There is no pleural effusion. The cardiovascular structures appear intact. SUMMARY: Normal chest.
== END 2019-02-05 16:23 ==
PROVIDERS: PCP Nurse Practitioner Family; Visit Provider Nurse Practitioner Family
DX: R06.00 Dyspnea, unspecified (principal); F17.200 Nicotine dependence, unspecified, uncomplicated
CPT/HCPCS: 71046

== ENCOUNTER 2019-02-12 02:05 | Outpatient (CLI) | payer MEDICAID, SELFPAY ==
--- NOTE | 2019-02-12 | PFT_ITS ---
PULMONARY FUNCTION TEST REPORT Patient - Awais Iqbal DATE OF SERVICE February 12, 2019 REQUESTING PROVIDER Griselda Vides N.P. INTERPRETATION OF STUDY Spirometry shows mild obstructive airways disease with no bronchodilator response. LUNG VOLUMES - Lung volumes show no evidence of restriction. DIFFUSION CAPACITY- Normal. AIRWAY RESISTANCE - Normal. IMPRESSION Mild obstructive airways disease with no significant bronchodilator response. Clinical correlation recommended. Magdalena Wheeler M.D. Selvin DD 02/12/2019 DT 02/13/2019
[2019-02-12] MEDS: Inhaler, Assist Device 1 EACH MC (10:51)
[2019-02-12] MEDS: Albuterol HFA 18 GM 200 PUFF INH IH (10:51)
== END 2019-02-12 02:25 ==
PROVIDERS: PCP Nurse Practitioner Family; Visit Provider Nurse Practitioner Family
DX: R06.09 Other forms of dyspnea (principal); Z87.891 Personal history of nicotine dependence; R07.89 Other chest pain
CPT/HCPCS: 94060; 94150; 94726; 94729

== ENCOUNTER 2019-06-05 13:19 | Outpatient (CLI) | payer MEDICAID, SELFPAY ==
[2019-06-05 14:20] LABS: Iron 107 ug/dL (50-175); Total Iron Binding Capacity 340 ug/dL (250-450); Transferrin Sat 31 % (20-55)
[2019-06-05 14:35] LABS: Ferritin 187 ng/mL (8-388); TSH (W/Ref FT4) 2.28 uIU/mL (0.36-3.74)
== END 2019-06-05 13:39 ==
PROVIDERS: PCP Nurse Practitioner Family; Visit Provider Nurse Practitioner Family
DX: K76.0 Fatty (change of) liver, not elsewhere classified (principal); R53.83 Other fatigue
CPT/HCPCS: 36415; 82728; 83540; 83550; 84443

== ENCOUNTER 2019-07-24 01:52 | Outpatient (CLI) | payer MEDICAID, SELFPAY ==
--- NOTE | 2019-07-24 06:45 | DI.NM_ITS ---
APPROVED REPORT Exam: Pharmacologic Patient Location: Out-Patient Room/Bed: Stress Nurse: Malissa Jarrell RN Rhythm: NSR, prolonged QT interval Indications: Exertional chest pain. Medical History Medical History: COPD, Obesity , Hyperlipidemia Medications: Aspirin, Simvastatin Allergies: Nicoderm CQ patch, Ivory Soap Cardiac Risk Factors: Hyperlipidemia, FHX of CAD Exercise History: Limited mobility Physical Disabilities: Legs Stress Test Details Test: Pharmacologic stress testing performed using 0.4 mg of regadenoson per 5 mL given IV over 10 s econds. Reason for pharmacologic stress test: physical limitation. Nuclear Acquisition: Stress Tc-99m/Stress Tc-99m 1 day Rest Isotope: Tc-99m Sestamibi. Dose: 12 Date: 07/24/2019 Injection Time: 0845 Stress Isotope: Tc-99m Sestamibi. Dose: 37.0 Date: 07/24/2019 Injection Time: 1015 HR Resting HR: 80 bpm Max Heart Rate (APMHR): 169 bpm Target HR (85% APMHR): 143 bpm BP Resting BP: 136/90 mmHg ECG Resting ECG: Sinus Rhythm Stress ECG: Sinus Rhythm ST Change: No significant ST segment changes. Recovery ECG: Sinus Rhythm Recovery ST Change: No significant ST segment changes. Recovery Arrhythmia: None Clinical Reason for Termination: Completed protocol Stress Symptoms: chest tightness (7/10) at 1 minute 49 seconds, chest tightness (2/10) at 2 minutes 1 8seconds, chest tightness (0/10) at 2 minutes 49 seconds. Stress ECG Conclusion 1. Normal hemodynamic response to pharmacologic stress. 2. ECG: Non-ischemic 3. Imaging: Non-ischemic 4. This represents a normal stress test
[2019-07-24] MEDS: Regadenoson 0.4 MG/5 ML SYR IVP (10:21)
== END 2019-07-24 02:12 ==
PROVIDERS: PCP Nurse Practitioner Family; Visit Provider Nurse Practitioner Family
DX: R07.9 Chest pain, unspecified (principal); E78.5 Hyperlipidemia, unspecified; J44.9 Chronic obstructive pulmonary disease, unspecified; E66.9 Obesity, unspecified; Z82.49 Family history of ischemic heart disease and other diseases of the circulatory system
CPT/HCPCS: 78452; 93017; J2785

== ENCOUNTER 2019-10-09 06:58 | Day surgery (SDC) | payer MEDICAID, SELFPAY ==
[2019-10-09 07:27] VITALS: BP 136/84; PULSE 103; RESP 18; TEMP 36.2; O2SAT 97
[2019-10-09] MEDS: Lactated Ringers 1,000 ML 80 ML IV ×2 (07:47→08:53)
--- NOTE | 2019-10-09 09:12 | BOWEL_PTH ---
PATIENT: Awais Iqbal LOC: [facility] U#:[id number] AGE/SX: 49/M ROOM: RE10/09/[address]: Paulette Dasilva : 1970 BED: DIS: 10/09/2019 SPEC #: [id number] RECD: 10/09/19 13:02 STATUS: [facility] RE #: [id number] JENNIFER: 10/09/19 09:[address]: Paulette Dasilva DEPT: Surgical Specimen RECD BY: Maine Stauffer ENTERED: 10/09/19 13:03 SP TYPE: Bowel OTHR DR: Griselda Vides APRN Tissues: 1 - BIOPSY BOWEL 2 - BIOPSY BOWEL 3 - BIOPSY BOWEL 4 - BIOPSY BOWEL Procedures: GROSS AND MICRO LEVEL 4 Comments: [id number]
--- NOTE | 2019-10-09 09:43 | PDOC.DSDIS_ITS ---
Discharge Plan Disposition Patient Disposition: HOME Condition: Good Discharge Details Reason For Visit: colon scope Attending Provider: Paulette Dasilva Primary Care Provider: Griselda Vides Home Meds and New Rx's Prescriptions: Discontinued polyethylene glycol 3350 17 gram/dose powder 238 g PO ONCE Qty: 238 RF: 0 bisacodyl [Dulcolax (bisacodyl)] 5 mg tablet,delayed release (DR/EC) 5 mg PO ONCE Qty: 4 RF: 0 No Action ibuprofen 600 mg tablet 600 mg PO TID PRN (Reason: pain) Qty: 60 RF: 0 fluticasone propion-salmeterol [Advair Diskus] 250-50 mcg/dose blister with device 1 inh IH BID Qty: 3 RF: 3 hydroxyzine HCl 50 mg tablet 50 mg PO BID RF: 0 nystatin 15 GM cream 15 gm Topical PRN RF: 0 simvastatin 40 mg tablet 40 mg PO QPM Qty: 90 RF: 3 citalopram 40 mg tablet 40 mg PO HS RF: 0 albuterol sulfate 90 mcg/actuation HFA aerosol inhaler 1 - 2 puff IH Q4H PRN (Reason: shortness of breath or wheezing) Qty: 1 RF: 3 aspirin [Aspir-Low] 81 mg Tablet,Delayed Release (Dr/Ec) 81 mg PO HS RF: 0 multivitamin Capsule 1 cap PO HS RF: 0 pantoprazole 40 mg tablet,delayed release (DR/EC) 40 mg PO QPM RF: 0 bupropion HCl [Wellbutrin XL] 300 mg tablet extended release 24 hr 300 mg PO HS RF: 0 Discharge Instructions Instructions: Diverticulosis (GEN), High Fiber Diet (GEN) Additional Instructions: Findings:mult colon polyps and diverticula Follow up: repeat scope in approx 1-3 yrs- pd pathology. Will send a letter w/ results of pathology in 2-3 wks. -No ASA/NSAID's x 2 wks. hold ASA use x 2 wks -You may experience some bleeding w/ BM, or soreness to the rectum for about a week. If you start passing large clots of blood- return to the ER. Please call if you develop: fevers >101.5 Nausea or Vomiting Abdominal pain that is not transient DAY SURGERY UNIT POST COLONOSCOPY INSTRUCTIONS 1. Because there will be medication in your system for the next 24 hours, you may feel a little sleepy. Your coordination will be affected. Therefore: a. Do not drive or operate dangerous equipment for 24 hours. b. Do not drink alcohol beverages for 24 hours (not even beer). c. Plan to go home and rest for the day. 2. Generally there are no restrictions on your activity after a day or so has gone by, but you may feel a bit fatigued for a few days. 3 After you arrive home you may have a light meal and return to a normal diet as you can tolerate it without feeling sick to your stomach. 4. After surgery, you may feel pain or discomfort. This should be only transient, but if it persists please contact your doctor. 5. If there are any questions regarding the findings of your procedure, please f eel free to contact your doctor. 6. If you are unable to contact your doctor with a problem, contact the hospital at [phone]. 7. Continue all your regular medications unless directed otherwise. I understand the above instructions and have no questions. Signature of Patient or Responsible Adult Escort Date/Time Name of Responsible Adult Escort Signature of Nurse Date/Time Stand Alone Forms: Maddie Guerra (BULL) Activity:: No strenuous activity or heavy lifting for 24 hours Diet:: Small light meals x24 hours Discharge Orders Discharge Orders: Discharge Order (Routine); Ordered 10/09/19 Ordered By: Paulette Dasilva DS: Diagnosis Discharge Diagnosis (1) Diverticula of colon: Status: Acute (2) Adenomatous polyps: Status: Acute
--- NOTE | 2019-10-09 09:46 | W.COLOREPORT ---
Date of service: 10/09/19 Time of Service: 09:47 Colonoscopy Report Date of procedure: 10/09/19 Pre-op diagnosis general: screen Post-op diagnosis procedure note: other (diverticula-small, but do extend all the way over to the right colon. multiple lg A. polyps) Procedure: CE and mult polyp removal cecum- hot forcept 80cm- hot snare 74cm- hot forcept anal -rectal verge- lg polyp hot snare Surgeon: Paulette Dasilva Anesthesia proc note operative: GETA Estimated blood loss (mL): 3 Pathology: other Prep: Miralax/Dulcolax Procedure Description: After informed consent was obtained the patient was taken to the procedure room and placed in a left decubitous position. Monitors were applied and a time out was done. The patients name, date of , procedure, allergies to medications and metal in their body was reviewed. The patient was then sedated. Once sedated and comfortable a rectal exam was done. External exam was normal. Internal exam revealed a normal sphincter tone and no palpable masses. The scope was then introduced and retrofelexed. no internal hemorrhoids were identified. The scope was then advanced to the cecum w/out the colon was extensively washed difficulty. The TI and appendiceal orifice were identified. The prep was poor-there was still significant amount of debris in the colon. Polyps less than 5 mm may have been missed.. The scope was then slowly retracted over 15 minutes back into the rectum. He has multiple small diverticula with no active bleeding or infection. They do extend all te way to the right colon. Mucosa appears pink and healthy. The vasculature appears normal. Polyps were removed at: cecum- hot forcept 80cm- hot snare 74cm- hot forcept anal -rectal verge- lg polyp- hot snare. . The scope was removed and the patient was woken up and taken back to Same day surgery in stable condition. The patient tolerated the procedure well and there were no immediate complications. Follow up: The patient should follow up in 1-3 years, path pd, unless they develop changes in bowel habits or other new gastrointestinal complaints.
[2019-10-09 09:54] VITALS: BP 91/51; PULSE 74; RESP 18; O2SAT 98
[2019-10-09 10:20] VITALS: BP 90/53; PULSE 71; RESP 18; TEMP 36; O2SAT 98
== END 2019-10-09 11:25 | disposition home or self-care (01) ==
PROVIDERS: PCP Nurse Practitioner Family; Visit Provider Surgery
PROC: 0DJD8ZZ Inspection of Lower Intestinal Tract, Via Natural or Artificial Opening Endoscopic (ICD-10-PCS; CPT 45378; principal; 2019-10-09 08:30)
DX: Z12.11 Encounter for screening for malignant neoplasm of colon (principal); D12.0 Benign neoplasm of cecum; D12.6 Benign neoplasm of colon, unspecified; D12.9 Benign neoplasm of anus and anal canal; J44.9 Chronic obstructive pulmonary disease, unspecified; K57.30 Diverticulosis of large intestine without perforation or abscess without bleeding; Z80.0 Family history of malignant neoplasm of digestive organs; K21.9 Gastro-esophageal reflux disease without esophagitis
CPT/HCPCS: 45385; 45384; 88305

== ENCOUNTER 2020-04-26 02:14 | Outpatient (CLI) | payer MEDICAID, SELFPAY ==
[2020-04-26 11:39] LABS: Hemoglobin A1C 5.4 % (3.8-5.6)
[2020-04-26 11:59] LABS: Microalb ug/mg Crea 2.8 ug/mg Cr
[2020-04-26 12:29] LABS: ALT 57 U/L (16-63); AST 27 U/L (15-37); Albumin 4.1 g/dL (3.4-5.0); Alkaline Phosphatase 93 U/L (46-116); Anion Gap 9.1 mmol/L (3-11); BUN 18 mg/dL (7-18); Bilirubin, Total 0.3 mg/dL (0.2-1.0); CO2 28.9 mmol/L (21.0-32.0); Calcium 9.1 mg/dL (8.5-10.1); Calculated LDL 71 mg/dL (<100); Chloride 108 mmol/L (98-107); Cholesterol 131 mg/dL (<200); Glucose 94 mg/dL (74-106); HDL Cholesterol 34 mg/dL (40-60); Potassium 4.5 mmol/L (3.5-5.1); Sodium 146 mmol/L (136-145); Total Protein 7.3 g/dL (6.4-8.2); Triglyceride 134 mg/dL (<150)
== END 2020-04-26 02:34 ==
PROVIDERS: PCP Nurse Practitioner Family; Visit Provider Nurse Practitioner Family
DX: E78.5 Hyperlipidemia, unspecified (principal); E11.9 Type 2 diabetes mellitus without complications; Z79.4 Long term (current) use of insulin
CPT/HCPCS: 36415; 80053; 80061; 82043; 82570; 83036

== ENCOUNTER 2020-05-03 01:31 | Outpatient (CLI) | payer MEDICAID, SELFPAY ==
[2020-05-03 11:52] LABS: Abs Immature Grans 0.01 k/cumm (0.0-0.09); Absolute Basophil Count 0.04 k/cumm (0.0-0.2); Absolute Lymphocyte Count 2.76 k/cumm (1.2-3.4); Absolute Monocyte Count 0.49 k/cumm (0.11-0.7); Absolute Neutrophil Count 4.05 k/cumm (1.2-6.7); Basophils % 0.5; Eosinophils % 1.3; HCT 42.7 % (40.0-50.0); HGB 14.3 g/dL (13.5-17.5); Immature Grans % 0.1 %; Mean Corp. HGB Concentration 33.5 g/dL (32.0-36.0); Mean Corpuscular Hemoglobin 29.5 pg (27.0-33.0); Mean Corpuscular Volume 88.2 fL (80-95); Mean Platelet Volume 7.8 fL (8.0-11.0); Monocytes % 6.6; Neutrophils % 54.5; Platelet Count 256 x1000/uL (130-400); RBC 4.84 m/cumm (4.50-6.00); RBC Distribution Width 13.4 % (11.8-14.1); White Blood Cell Count 7.45 k/cumm (4.4-10.8)
[2020-05-03 12:40] LABS: ESR 18 mm/hr (1-20)
[2020-05-03 12:43] LABS: C-Reactive Protein 0.17 mg/dL (0.0-0.3); Uric Acid 8.8 mg/dL (3.5-7.2)
== END 2020-05-03 01:51 ==
PROVIDERS: PCP Nurse Practitioner Family; Visit Provider Nurse Practitioner Family
DX: M79.671 Pain in right foot (principal); Z87.39 Personal history of other diseases of the musculoskeletal system and connective tissue; M10.9 Gout, unspecified
CPT/HCPCS: 36415; 85652; 84550; 85025; 86140

== ENCOUNTER 2020-05-04 00:59 | Outpatient (CLI) | payer MEDICAID, SELFPAY ==
--- NOTE | 2020-05-04 10:30 | DI.RAD_ITS ---
EXAM: XR HEEL RT OS CALCIS CLINICAL HISTORY: Bone spur vs. other,H/O JOINT REDNESS,HEEL PAIN,M79.673,Z87.39 TECHNIQUE: COMPARISON: No exams were available for comparison FINDINGS: Two views were obtained. There is prominent osteophyte at the Achilles insertion on the calcaneus. Minimal osteophyte formation noted at the plantar fascia attachment. No other significant bony abnor mality seen involving the calcaneus or visualized joints of the ankle. IMPRESSION:
== END 2020-05-04 01:19 ==
PROVIDERS: PCP Nurse Practitioner Family; Visit Provider Nurse Practitioner Family
DX: M79.671 Pain in right foot (principal); M25.771 Osteophyte, right ankle
CPT/HCPCS: 73650

== ENCOUNTER 2020-12-10 02:46 | Outpatient (CLI) | payer MEDICAID, SELFPAY ==
[2020-12-10 12:56] LABS: Hemoglobin A1C 6.4 % (<5.7)
[2020-12-10 13:06] LABS: Abs Immature Grans 0.03 10^3/uL (0.0-0.06); Absolute Basophil Count 0.06 10^3/uL (0.0-0.2); Absolute Eosinophil Count 0.13 10^3/uL (0.0-0.7); Absolute Lymphocyte Count 3.12 10^3/uL (1.2-3.4); Absolute Monocyte Count 0.41 10^3/uL (0.1-0.8); Absolute Neutrophil Count 3.48 10^3/uL (1.2-6.7); Basophils % 0.8; Eosinophils % 1.8; HCT 39.8 % (40.0-50.0); HGB 13.1 g/dL (13.5-17.5); Immature Grans % 0.4; Lymphocytes % 43.2; MCHC 32.9 % (32.0-36.0); MCV 88.2 fL (80-95); MPV 8.5 fL (8.0-11.0); Monocytes % 5.7; Neutrophils % 48.1; Nucleated RBC 0 %; Platelet Count 222 10^3/uL (130-400); RBC 4.51 10^6/uL (4.36-5.78); RDW 12.8 % (11.8-14.1); RDW-SD 41.4 fL; WBC 7.23 10^3/uL (4.4-10.8)
[2020-12-10 13:16] LABS: Microalb ug/mg Crea 3.9 ug/mg Cr
[2020-12-10 14:04] LABS: ALT 119 U/L (16-63); AST 59 U/L (15-37); Alkaline Phosphatase 104 U/L (46-116); Anion Gap 11.5 mmol/L (3-11); BUN 19 mg/dL (7-18); Bilirubin, Total 0.3 mg/dL (0.2-1.0); CO2 26.5 mmol/L (21.0-32.0); CREATININE 1.1 mg/dL (0.70-1.30); Calcium 8.7 mg/dL (8.5-10.1); Calculated LDL 67 mg/dL (<100); Chloride 107 mmol/L (98-107); Cholesterol 149 mg/dL (<200); Glucose 98 mg/dL (74-106); HDL Cholesterol 38 mg/dL (40-60); Potassium 4.2 mmol/L (3.5-5.1); Sodium 145 mmol/L (136-145); Total Protein 7.3 g/dL (6.4-8.2); Triglyceride 222 mg/dL (<150)
== END 2020-12-10 02:47 | disposition home or self-care (01) ==
LOC: LBO 02:46
PROVIDERS: PCP Nurse Practitioner Family; Visit Provider Nurse Practitioner Family
DX: E11.9 Type 2 diabetes mellitus without complications (principal); E78.5 Hyperlipidemia, unspecified; Z79.4 Long term (current) use of insulin; Z51.81 Encounter for therapeutic drug level monitoring
CPT/HCPCS: 36415; 80053; 80061; 82043; 82570; 83036; 85025

== ENCOUNTER 2020-12-20 11:08 | Day surgery (SDC) | payer MEDICAID, SELFPAY ==
--- NOTE | 2020-12-20 06:46 | W.COLOREPORT ---
Date of service: 12/20/20 Time of Service: 12:09 Colonoscopy Report Date of procedure: 12/20/20 Pre-op diagnosis general: Hx of polyps Post-op diagnosis procedure note: same (internal hemorrhoids and hemorrhoidal skin tag) Procedure: Colonoscopy with polypectomy Surgeon: Rosy Jean Anesthesia proc note operative: other (General/ASA 2/Noé Phillips, FAISAL) Estimated blood loss (mL): 3 Pathology: other (Ascending polyps x3, Transverse polyp and descending polyps x2) Complications: None Disposition: same day Indications: Mr. Iqbal is a 50-year-old gentleman status post colonoscopy in September 2019. He was noted to have 3 large polyps which were removed. It was recommended that he return in a year. He is here today to discuss a follow-up colonoscopy. He has had no changes in bowel habits, hematochezia, melena, abdominal pain, unintentional weight loss in the last year. The procedure was explained in detail to him. We reviewed risks and benefits. We also reviewed Covid testing and quarantine requirements. The patient wishes to proceed. Risks, benefits and complications have been reviewed. Complications include but are not limited to bleeding, pain, perforation, missed small lesion/polyp, sore throat, aspiration and adverse reaction to the medications. Questions were entertained and answered to their satisfaction and they wished to proceed. No guarantees were given or implied. COVID-19 testing explained to the patient. Reason for test reviewed. Quarantine per state requirements reviewed with patient. Patient understands and agrees to testing. Proceed with colonoscopy under sedation. Prep: Miralax/Dulcolax Procedure Start Time: 12:09 Procedure End Time: 12:41 Retraction Time: 22 minutes Findings: 5 small polyps. All sessile and all <1 cm in size Grade 1 internal hemorrhoids and internal hemorrhoidal skin tag Procedure Description: After informed consent was obtained the patient was taken to the procedure room and placed in a left decubitous position. Monitors were applied and a time out was done. The patients name, date of , procedure, allergies to medications and metal in their body was reviewed. The patient was then sedated. Once sedated and comfortable a rectal exam was done. External exam was normal. Internal exam revealed a normal sphincter tone and no palpable masses. The prostate felt smooth and enlarged. The scope was then introduced and retro-flexed. Grade 1 internal hemorrhoids, polyps or masses were identified on retro-flexion. The scope was then advanced to the cecum without difficulty. The ileocecal vlave and appendiceal orifice were identified. The prep was good. The scope was then slowly retracted over 22 minutes back into the rectum. Polyps were removed with cold forceps in the ascending colon x3, transverse colon and descending colon x2. There was no diverticulosis noted. The scope was removed and the patient was woken up and taken back to Same day surgery in stable condition. The patient tolerated the procedure well and there were no immediate complications. Follow up: The patient should follow up in 3-5 years unless they develop changes in bowel habits or other new gastrointestinal complaints.
--- NOTE | 2020-12-20 06:47 | W.PM.DSUDISC ---
Discharge Plan Disposition Patient Disposition: HOME Condition: Good Discharge Details Reason For Visit: Colonoscopy Attending Provider: Rosy Jean Primary Care Provider: Griselda Vides Home Meds and New Rx's Prescriptions: Continued ibuprofen 600 mg tablet 600 mg PO TID PRN (Reason: pain) Qty: 60 RF: 0 (DME) blood-glucose meter Misc See Rx Instructions .ROUTE .MEDSUPPLY Qty: 1 RF: 0 diclofenac sodium [Voltaren] 1 % gel 4 gm TP QID Qty: 100 RF: 0 fluticasone propion-salmeterol [Advair Diskus] 500-50 mcg/dose blister with device 1 inh inhalation BID Qty: 3 RF: 3 hydroxyzine HCl 50 mg tablet 50 mg PO BID RF: 0 Lantus Solostar U-100 Insulin 100 unit/mL (3 mL) insulin pen 18 unit subcut DAILY Qty: 18 RF: 3 meloxicam 15 mg tablet 15 mg PO DAILY Qty: 30 RF: 3 nystatin 15 GM cream 15 gm Topical PRN RF: 0 citalopram 40 mg tablet 40 mg PO HS RF: 0 albuterol sulfate 90 mcg/actuation HFA aerosol inhaler 1 - 2 puff IH Q4H PRN (Reason: shortness of breath or wheezing) Qty: 1 RF: 3 (DME) pen needle, diabetic [BD Ultra-Fine Anisha Pen Needle] 32 gauge x 5/32 needle See Rx Instructions .ROUTE .MEDSUPPLY Qty: 200 RF: 3 (DME) lancets Misc See Rx Instructions .ROUTE .MEDSUPPLY Qty: 200 RF: 3 (DME) Blood Glucose Test Strip See Rx Instructions .ROUTE .MEDSUPPLY Qty: 200 RF: 3 bupropion HCl [Wellbutrin XL] 300 mg tablet extended release 24 hr 300 mg PO HS Qty: 90 RF: 0 pantoprazole 40 mg tablet,delayed release (DR/EC) 40 mg PO QAM Qty: 90 RF: 3 metformin 1,000 mg tablet 1,000 mg PO BID Qty: 180 RF: 3 simvastatin 40 mg tablet 40 mg PO QPM Qty: 90 RF: 3 Victoza 2-Markus 0.6 mg/0.1 mL (18 mg/3 mL) pen injector 0.6 mg SC DAILY Qty: 3 RF: 3 aspirin [Aspir-Low] 81 mg Tablet,Delayed Release (Dr/Ec) 81 mg PO HS RF: 0 multivitamin Capsule 1 cap PO HS RF: 0 Discontinued bisacodyl [Dulcolax (bisacodyl)] 5 mg tablet,delayed release (DR/EC) 5 mg PO ONCE Qty: 4 RF: 0 polyethylene glycol 3350 17 gram/dose powder 17 g PO ONCE Qty: 238 RF: 0 Discharge Instructions Instructions: Colorectal Polyps (DC), Hemorrhoids (DC) Additional Instructions: Findings: 6 small polyps small internal hemorrhoids Follow up: 3-5 years Please call if you develop: fevers >101.5 Nausea or Vomiting Abdominal pain that is not transient DAY SURGERY UNIT POST ENDOSCOPY INSTRUCTIONS 1. Because there will be medication in your system for the next 24 hours, you may feel a little sleepy. Your coordination will be affected. Therefore: a. Do not drive or operate dangerous equipment for 24 hours. b. Do not drink alcohol beverages for 24 hours (not even beer). c. Plan to go home and rest for the day. 2. Generally there are no restrictions on your activity after a day or so has gone by, but you may feel a bit fatigued for a few days. 3 After you arrive home you may have a light meal and return to a normal diet as you can tolerate it without feeling sick to your stomach. 4. After surgery, you may feel pain or discomfort. This should be only transient, but if it persists please contact your doctor. 5. If there are any questions regarding the findings of your procedure, please feel free to contact your doctor. 6. If you are unable to contact your doctor with a problem, contact the hospital at [phone]. 7. Continue all your regular medications unless directed otherwise. I understand the above instructions and have no questions. Signature of Patient or Responsible Adult Escort Date/Time Name of Responsible Adult Escort Signature of Nurse Date/Time Activity:: Activity as Tolerated Diet:: High Fiber diet Discharge Orders Discharge Orders: Discharge Order (Routine); Ordered 12/20/20 Ordered By: Rosy Jean
[2020-12-20 11:15] VITALS: BP 111/77; PULSE 110; RESP 18; TEMP 36.4; O2SAT 100
[2020-12-20] MEDS: Lactated Ringers 1,000 ML 80 ML IV (11:49)
--- NOTE | 2020-12-20 12:20 | BOWEL_PTH ---
PATIENT: Awais Iqbal LOC: [facility] U#:[id number] AGE/SX: 50/M ROOM: RE12/20/[address]: Rosy Jean MD : [id number] BED: DIS: 12/20/2020 SPEC #: [id number] RECD: 12/21/20 11:03 STATUS: [facility] REJun #: [id number] JENNIFER: 12/20/20 12:[address]: Rosy Jean DEPT: Surgical Specimen RECD BY: Maine Stauffer ENTERED: 12/21/20 11:04 SP TYPE: Bowel OTHR DR: Griselda Vides APRN Tissues: 1 - BIOPSY BOWEL 2 - BIOPSY BOWEL 3 - BIOPSY BOWEL Procedures: GROSS AND MICRO LEVEL 4 Comments: [id number]
[2020-12-20 13:22] VITALS: BP 108/70; PULSE 92; RESP 16; TEMP 36.4; O2SAT 95
== END 2020-12-20 14:20 | disposition home or self-care (01) ==
LOC: SUR 11:09
PROVIDERS: PCP Nurse Practitioner Family; Visit Provider Surgery
PROC: 0DJD8ZZ Inspection of Lower Intestinal Tract, Via Natural or Artificial Opening Endoscopic (ICD-10-PCS; CPT 45378; principal; 2020-12-20 12:30)
DX: Z12.11 Encounter for screening for malignant neoplasm of colon (principal); D12.2 Benign neoplasm of ascending colon; D12.3 Benign neoplasm of transverse colon; D12.4 Benign neoplasm of descending colon; Z86.010 Personal history of colon polyps
CPT/HCPCS: 45380; 88305; J2001; J2704

== ENCOUNTER 2021-01-13 01:36 | Outpatient (CLI) | payer MEDICAID, SELFPAY ==
--- NOTE | 2021-01-13 06:30 | DI.US_ITS ---
EXAM: US ABDOMEN CLINICAL HISTORY: HEPATIC STEATOSIS,ELEVATED LIVER ENZYMES,R74.8,K76.0 TECHNIQUE: Ultrasound of complete upper abdomen performed using standard protocol. COMPARISON: CT CT ABDOMEN PELVIS W from 01/25/2019 FINDINGS: There is no ascites evident. LIVER: Liver appears echogenic implying steatosis. There are no discrete focal hepatic lesions ident ified. GALLBLADDER/BILIARY: There are no gallstones. No gallbladder wall edema nor pericholecystic fluid. The common hepatic duct isnot dilated, measuring 5mm at the level of waqas hepatis. PANCREAS: There is no evidence of pancreatic mass nor dilatation of the pancreatic duct. SPLEEN: Spleen size is upper normal. There are no intrasplenic masses evident. KIDNEYS:Kidneys exhibit normal size with no evidence of solid mass, calculus, nor hydronephrosis. No cortical cysts evident. ABDOMINAL AORTA: There is no evidence of abdominal aortic aneurysm. IVC: Normal diameter where visualized. IMPRESSION: 1. No evidence of cholelithiasis nor dilatation of the biliary tree. 2. Hepatic steatosis. Correlation with appropriate hepatic blood work recommended. 3. Spleen size upper normal. 4. There is no ascites. DATA REPOSITORY:
== END 2021-01-13 01:56 ==
PROVIDERS: PCP Nurse Practitioner Family; Visit Provider Nurse Practitioner Family
DX: K76.0 Fatty (change of) liver, not elsewhere classified (principal); R74.8 Abnormal levels of other serum enzymes; R16.1 Splenomegaly, not elsewhere classified
CPT/HCPCS: 76700

== ENCOUNTER 2021-02-22 02:04 | Outpatient (CLI) | payer MEDICAID, SELFPAY ==
[2021-02-23 15:28] LABS: COVID-19 RT-PCR UVMMC Result Positive (Negative)
== END 2021-02-22 02:05 | disposition home or self-care (01) ==
LOC: LBO 02:05
PROVIDERS: PCP Nurse Practitioner Family; Visit Provider Nurse Practitioner Family
DX: Z20.822 Contact with and (suspected) exposure to COVID-19 (principal)
CPT/HCPCS: U0003

== ENCOUNTER 2021-02-28 09:19 | Outpatient (CLI) | payer MEDICAID, SELFPAY ==
[2021-02-28 13:10] VITALS: BP 105/68; PULSE 87; RESP 26; TEMP 38.5; O2SAT 88
== END 2021-02-28 09:20 | disposition home or self-care (01) ==
PROVIDERS: PCP Nurse Practitioner Family; Visit Provider Physician Assistant Medical
DX: U07.1 COVID-19 (principal); Z53.9 Procedure and treatment not carried out, unspecified reason
CPT/HCPCS: 96365

== ENCOUNTER 2021-02-28 13:51 | Inpatient (IN) | payer MEDICAID, SELFPAY ==
[2021-02-28] VITALS (47 sets, daily range): BP systolic 85–121; BP diastolic 40–88; PULSE 61–92; RESP 15–32; TEMP 36.6–39.3; O2SAT 79–99
--- NOTE | 2021-02-28 13:45 | RT.EKG_ITS ---
APPROVED REPORT Exam: Resting ECG Reason for Exam: chest pain Patient Location: E HR:76 bpm ECG Measurements Heart Rate 76 AXIS [place] 178 P 46 QRSd 114 QRS 54 QT 444 T 27 QTc 499 Conclusion Sinus rhythm...normal P axis, V-rate 60- 99
--- NOTE | 2021-02-28 14:00 | DI.CT_ITS ---
Exam(s) CT CHEST PE CTA EXAM: CT CHEST PE CTA CLINICAL HISTORY: Covid positive, SOB. TECHNIQUE: Imaging Protocol: CT angiography of the chest was performed using pulmonary embolus nikolas col. Multi planar reconstructions were performed. CONTRAST MATERIAL: Intravenous: Omnipaque 350 Contrast volume: 100 cc COMPARISON: CT CT ABDOMEN PELVIS W from 01/25/2019 FINDINGS: CHEST: PULMONARY ARTERIES: There are no intraluminal filling defects to suggest acute pulmonary emboli. LUNGS: There are multiple prominent areas of patchy and confluent infiltrates throughout both lungs i nvolving all lobes, not associated with pleural effusions. There are no focal findings in the trachea and mainstem bronchi. MEDIASTINUM: No hilar nor mediastinal adenopathy visualized thyroid unremarkable. CARDIAC: Heart size is upper normal. There is no pericardial effusion.Caliber of the thoracic aorta is within normal limits. No evidence of aortic dissection. There is no significant shift of the inte rventricular septum. PARTIALLY VISUALIZED UPPERMOST ABDOMEN: Hepatic steatosis noted. OSSEOUS: No significant osseous lesions.. IMPRESSION: 1. No evidence of acute pulmonary emboli. No evidence of pulmonary infarction. 2. However, there are extensive bilateral infiltrates involving all lobes of both lungs. No associat ed pleural effusions. No obvious adenopathy. Recommend Covid-19 testing 3. Hepatic steatosis noted RADIATION DOSE DELIVERED: 563.25mGy.cm Total DLP DATA REPOSITORY: All CT scans at this facility are submitted to the National Radiology Data Registry (NRDR) Dose Index Registry (DIR) with the [employer] (A[employer]). RADIATION OPTIMIZATION: All CT scans at this facility use at least one of these dose optimization te chniques: automated exposure control; mA and/or kV adjustment per patient size (includes targeted exa ms where dose is matched to clinical indication); or iterative reconstruction.
--- NOTE | 2021-02-28 14:08 | W.ED.GENAD ---
Discharge Plan Discharge Details Chief Complaint: RespSymp Admit Date/Time: 02/28/21 18:56 Admit Provider: Noé Love Attending Provider: Noé Love Primary Care Provider: Griselda Vides ED Provider: Jessica Callaway Discharge Data Discharge Date/Time-TO BE ENTERED AT DEPARTURE: 02/28/21 19:45 Medical Decision Making <Filomena Noriega - Last Filed: 03/01/21 08:25> 50-year-old male presents to the ER from the infusion center, Covid positive diagnosed February 22. Symptoms per patinet began February 21. Was noted to be hypoxic 88% on room air with a fever 101 prior to arrival. On initial examination he is on 2 L nasal cannula satting approximately 92%-96%, 102.8 oral temperature noted. He does appear very exertionally short of breath with any movement. He denies any pain at this time. He did not get the antibiotic infusion prior to arrival. He has a past medical history of type 2 diabetes, obesity, diverticulosis, gastritis, GERD osteoarthritis, hyperlipidemia, obstructive sleep apnea. Covid work-up ordered including CBC, CMP, ferritin, D-dimer, procalcitonin, serial Troponins, CT Chest PE study, dexamethasone 6 mg IV ordered and 200 mg remdesivir. Respiratory at bedside for evaluation is currently on 2 L nasal cannula satting from 92% to 96%. He becomes very short of breath with any exertion. Discussed remdesivir with pharmacist who recommends holding medication due to patients tansaminitis. Will hold at this time and defer to hospitalist. At this time care is to be handed off to oncoming provider GIRISH Colbert pending CT chest rule out PE. Patient has been doing well on 2 L nasal cannula. Expected disposition at this time is admission. <GIRISH Palma - Last Filed: 02/28/21 20:43> Care transition myself from Wendy Rutledge NP. Please see her initial note regarding history, presentation and exam. In brief, the patient is a pleasant 50-year-old gentleman who is known Covid positive. He had increased symptoms today. Had plan outpatient infusion at which time he was noted to be 88% on room air. Per JOSTIN Rutledge, patient has had increased exertional shortness of breath and is doing well with 2 L. Work-up thus far is consistent with history of COVID-19. At the time that I assume care, CT scan pending. Patient has received 6 mg of dexamethasone. Remdesivir was held secondary to the patient's transaminitis. CT reviewed by radiologist: FINDINGS: Pulmonary arteries: There is no evidence of pulmonary embolus. Aorta: The aorta is within normal limits. Thyroid: The thyroid gland is within normal limits. Lungs: There are multifocal multi lobar areas of ground-glass opacification and infiltrates. Pleural spaces: Unremarkable. No pneumothorax. No pleural effusion. Heart: The heart and pericardium are within normal limits. Lymph nodes: No enlarged lymph nodes. Bones/joints: There are degenerative changes of the thoracic spine. Soft tissues: Unremarkable. IMPRESSION: 1. No evidence of pulmonary embolus. 2. Multifocal multi lobar areas of ground-glass opacification and infiltrates.Commonly reported imaging features of COVID-19 pneumonia are present. Other processes such as influenza pneumonia and organizing pneumonia, as can be seen with drug toxicity and connective tissue disease, can cause a similar imaging pattern. (Reference: Helder). Discussed the findings with the patient. Plan for admission with his increased oxygen demand. Reviewed recent literature. With the patient's increasing fever over the past 2 days, plan to give ceftriaxone doxycycline. Consulted with Dr. Love regarding admission for hypoxia in the setting of COVID-19. He agrees to admission. Patient in agreement with HPI <Filomena Noriega - Last Filed: 03/01/21 08:25> General Mode of arrival: wheelchair. Date/Time Provider Initiated Documentation: 02/28/21 13:52. Limitations to Documentation: no limitations. Information obtained by: patient and old records reviewed. HPI Narrative: 50-year-old male presents to the ER from the infusion center, Covid positive diagnosed February 22. Symptoms per patinet began February 21. Was noted to be hypoxic 88% on room air with a fever 101 prior to arrival. On initial examination he is on 2 L nasal cannula satting approximately 92%-96%, 102.8 oral temperature noted. He does appear very exertionally short of breath with any movement. He denies any pain at this time. He did not get the antibiotic infusion prior to arrival. He has a past medical history of type 2 diabetes, obesity, diverticulosis, gastritis, GERD osteoarthritis, hyperlipidemia, obstructive sleep apnea. Related Data Home Medications Medication Instructions Recorded Confirmed nystatin 15 gm TOPICAL PRN 03/22/17 02/28/21 aspirin [Aspir-Low] 81 mg PO HS 10/31/18 02/28/21 multivitamin 1 cap PO HS 12/30/18 02/28/21 ibuprofen 600 mg tablet 600 mg PO TID PRN #60 tab-cap 02/14/19 02/28/21 albuterol sulfate 90 mcg/actuation 1 - 2 puff IH Q4H PRN #1 device 04/03/19 02/28/21 aerosol inhaler blood-glucose meter #1 each 11/06/19 02/28/21 blood sugar diagnostic #200 each 12/15/19 02/28/21 lancets #200 each 12/15/19 02/28/21 pen needle, diabetic 32 gauge x #200 each 12/15/19 02/28/21 insulin glargine 100 unit/mL (3 18 unit SUBCUT DAILY #18 syringe 04/29/20 12/24/20 mL) subcutaneous pen pantoprazole 40 mg tablet,delayed 40 mg PO QAM #90 tab-cap 05/20/20 02/28/21 release fluticasone 500 mcg-salmeterol 50 1 inh INHALATION BID #3 unit 10/01/20 02/28/21 mcg/dose blistr powdr for inhalation metformin 1,000 mg tablet 1,000 mg PO BID #180 tab 10/20/20 02/28/21 simvastatin 40 mg tablet 40 mg PO QPM #90 tab-cap 11/22/20 02/28/21 liraglutide 0.6 mg/0.1 mL (18 mg/3 0.6 mg SC DAILY #3 syringe 12/10/20 02/28/21 mL) subcutaneous pen injector bupropion HCl 300 mg 24 hr tablet, 300 mg PO DAILY #90 tab 12/24/20 02/28/21 extended release diclofenac sodium 1 % topical gel 2 - 4 g TOPICAL QID PRN #100 g 12/24/20 02/28/21 meloxicam 15 mg tablet 15 mg PO DAILY #30 tab 12/24/20 02/28/21 citalopram 40 mg tablet 40 mg PO HS #90 tab 01/06/21 02/28/21 hydroxyzine HCl 50 mg tablet 50 mg PO BID PRN #180 tab 01/06/21 02/28/21 Previous Rx's Medication Instructions Recorded ibuprofen 600 mg tablet 600 mg PO TID PRN #60 tab-cap 02/14/19 albuterol sulfate 90 mcg/actuation 1 - 2 puff IH Q4H PRN #1 device 04/03/19 aerosol inhaler blood-glucose meter #1 each 11/06/19 blood sugar diagnostic #200 each 12/15/19 lancets #200 each 12/15/19 pen needle, diabetic 32 gauge x #200 each 12/15/19 insulin glargine 100 unit/mL (3 18 unit SUBCUT DAILY #18 syringe 04/29/20 mL) subcutaneous pen pantoprazole 40 mg tablet,delayed 40 mg PO QAM #90 tab-cap 05/20/20 release fluticasone 500 mcg-salmeterol 50 1 inh INHALATION BID #3 unit 10/01/20 mcg/dose blistr powdr for inhalation metformin 1,000 mg tablet 1,000 mg PO BID #180 tab 10/20/20 simvastatin 40 mg tablet 40 mg PO QPM #90 tab-cap 11/22/20 liraglutide 0.6 mg/0.1 mL (18 mg/3 0.6 mg SC DAILY #3 syringe 12/10/20 mL) subcutaneous pen injector bupropion HCl 300 mg 24 hr tablet, 300 mg PO DAILY #90 tab 12/24/20 extended release diclofenac sodium 1 % topical gel 2 - 4 g TOPICAL QID PRN #100 g 12/24/20 meloxicam 15 mg tablet 15 mg PO DAILY #30 tab 12/24/20 citalopram 40 mg tablet 40 mg PO HS #90 tab 01/06/21 hydroxyzine HCl 50 mg tablet 50 mg PO BID PRN #180 tab 01/06/21 Allergies Allergy/AdvReac Type Severity Reaction Status Date / Time nicotine [From [facility]] AdvReac headaches Verified 02/08/21 08:40 ivory soap Allergy Mild Itching Uncoded 02/08/21 08:40 swollen eyes General Stated Complaint: RespSymp DIOMEDES: 2 Review of Systems <Filomena Noriega - Last Filed: 03/01/21 08:25> Narrative: Constitutional: Negative for weight loss, alert and oriented, well groomed, normal body habitus, appears uncomfortable. Positive fatigue HEENT: Denies trauma, headaches, blurry vision, nasal discharge, sore throat, trouble swallowing. Chest: Denies chest pain, palpitations, irregular rhythm, hypertension. Respiratory: Denies hemoptysis. Positive shortness of breath positive cough positive Covid. GI: Denies abdominal pain, nausea, vomiting, diarrhea, constipation. : Denies dysuria, hematuria, flank pain, rectal bleeding. Neuro: Denies dizziness, blurry vision, syncope, headache or facial numbness. Hematologic: Denies easy bruising, intolerance to heat or cold, hair loss. PFSH <Filomena Noriega - Last Filed: 03/01/21 08:25> Medical History Achilles tendinitis, right leg Adenomatous polyps Anxiety and depression Chronic back pain Chronic pain of both knees COPD (chronic obstructive pulmonary disease) Gastritis (10/09/11) w/ small punctate erosions likely secondary to NSAID use Gastroesophageal reflux disease Generalized osteoarthritis (02/21/18) Paul's deformity of right heel Hepatic steatosis Negative viral hepatitis serology 05/2018 Hyperlipidemia, unspecified 11/2020 labs: adequate response to moderate intensity statin, continue Obesity (BMI 30-39.9) Obstructive sleep apnea (10/04/17) severe CPAP. Sleep Service [facility] Pancreatitis (01/23/18) Right hip pain Seborrheic dermatitis Suicide attempt Tobacco use disorder QUIT 03/2018 Type 2 diabetes mellitus (~10/2019) Surgical History EGD (~09/2019) 2010 Duodenitis, gastritis Extraction of cataract removal, insert prosthetic lens (10/19/2015):Left removal, insert prosthetic lens (06/23/2014):Right hand surgery (1993) History of colonoscopy (~10/09/19) Family History Mother Depression Heart disease Hypertension Anxiety Father Heart disease Stroke Sister Alzheimers disease Breast cancer Diabetes Social History Smoking/Tobacco Use Status: Former Tobacco Use tobacco type: cigarettes Quit Date: 10/22/17 Pack-years: 120 Smoking risk assessment performed?: Yes Alcohol Intake: never Drug use: Never Substance use type: does not use Caregiver/Support person: No Housing: apartment Number of Children: 3 Communication Needs: None Pets and animals: Yes Pets and animals: cat(s), dog(s), snake(s) and other Details: pankaj Do you think of yourself as: straight/heterosexual Current gender identity: male What is your relationship status?: How often do you talk on the phone with friends or family?: three or more times per week How often do you get together with friends or relatives?: three or more times per week How often do you attend yazidi or anabaptism services?: decline to answer Do you belong to any clubs or organized social groups?: no Panel score (0-1 are the most socially isolated patients): 1 What type of physical activity do you participate in: none Duration: 15-30 minutes/day Frequency: 5-6 times per week Special maxime needs: No Seatbelt use: always Helmet use: Yes Drive intox or ride w/intox 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 Appears stated age. Normal body habitus. Head: Normocephalic, no trauma. Eyes: Pupils PERRLA, Red reflex noted, EOM's intact. Eyelids symmetrical without lesions, discharge, or swelling. ENT: Bilateral TM's WNL, External ear normal to inspection, no mastoid TTP, swelling, or erythema, Nasal turbinates WNL, no nasal discharge. Normal dentition, Posterior pharynx WNL, no exudate. Chest: RRR, Normal S1, S2, distal pulses intact. Resp: Lungs inspiratory expiratory crackles throughout, diminished lung sounds in the upper lobes, no wheezes, rales, or rhonchi. Musculoskeletal: Unable to assess gait, uses a cane, 5/5 strength to all four extremities. Skin: No suspicious rashes or lesions. Dry mucous membrane capillary refill less than 2 sec. Neurologic: Cranial nerves II-XII intact. Alert and oriented x 3. DTR's intact. Hematologic/Lymphatic: No ecchymosis, no lymphadenopathy. Course <Filomena Noriega - Last Filed: 03/01/21 08:25> Vital Signs Vital signs: Vital Signs Temperature 39.3 C H 02/28/21 14:01 Pulse 92 H 02/28/21 14:01 Respiratory Rate 30 H 02/28/21 14:01 Blood Pressure 113/65 02/28/21 14:01 Pulse Oximetry 92 02/28/21 14:01 Temperature 39.3 C H 02/28/21 14:01 Temperature Source Oral 02/28/21 14:01 Pulse 92 H 02/28/21 14:01 Respiratory Rate 30 H 02/28/21 14:01 Blood Pressure 113/65 02/28/21 14:01 Blood Pressure Position Supine 02/28/21 14:01 Pulse Oximetry 92 02/28/21 14:01 Oxygen Delivery Method Nasal Cannula 02/28/21 14:01 Oxygen Flow Rate 2 02/28/21 14:01 Sign Out <Filomena Noriega - Last Filed: 03/01/21 08:25> Sign Out Data: Sign Out Comment: Covid positive, CT chest results, Recommend admission Last updated by Filomena Noriega at 02/28/21 15:48
[2021-02-28] MEDS: ACETAMINOPHEN 1,000 MG/100 ML BTL 400 MG IVPB (14:26)
[2021-02-28] MEDS: Dexamethasone 4 MG/ML VIAL 6 MG IVP (14:29)
[2021-02-28 14:30] LABS: Abs Immature Grans 0.03 10^3/uL (0.0-0.06); Absolute Basophil Count 0.01 10^3/uL (0.0-0.2); Absolute Lymphocyte Count 1.33 10^3/uL (1.2-3.4); Absolute Monocyte Count 0.17 10^3/uL (0.1-0.8); Absolute Neutrophil Count 2.59 10^3/uL (1.2-6.7); Basophils % 0.2; HCT 38.7 % (40.0-50.0); Immature Grans % 0.7; Lymphocytes % 32.2; MCH 29.1 pg (27.0-33.0); MCHC 33.6 % (32.0-36.0); MCV 86.8 fL (80-95); Monocytes % 4.1; Neutrophils % 62.8; Nucleated RBC 0 %; Platelet Count 148 10^3/uL (130-400); RBC 4.46 10^6/uL (4.36-5.78); RDW 13.2 % (11.8-14.1); RDW-SD 41.5 fL; WBC 4.13 10^3/uL (4.4-10.8)
[2021-02-28 15:00] LABS: D-Dimer 584 ng/mlFEU (<500)
[2021-02-28 15:07] LABS: Procalcitonin 0.1 ng/mL
[2021-02-28 15:13] LABS: ALT 112 U/L (16-63); AST 110 U/L (15-37); Albumin 3.6 g/dL (3.4-5.0); Alkaline Phosphatase 90 U/L (46-116); Anion Gap 14.7 mmol/L (3-11); BUN 14 mg/dL (7-18); Bilirubin, Total 0.4 mg/dL (0.2-1.0); C-Reactive Protein 2.19 mg/dL (0.0-0.3); CO2 20.3 mmol/L (21.0-32.0); CREATININE 1.1 mg/dL (0.70-1.30); Calcium 8.3 mg/dL (8.5-10.1); Chloride 100 mmol/L (98-107); Glucose 99 mg/dL (74-106); LDH 470 U/L (85-227); Potassium 4.3 mmol/L (3.5-5.1); Sodium 135 mmol/L (136-145); Total Protein 7.5 g/dL (6.4-8.2)
[2021-02-28 15:17] LABS: Troponin I < 0.05 ng/mL (<0.06)
--- NOTE | 2021-02-28 15:39 | RESPIRATORY ---
RT called to ER for Covid+ patient coming from [facility] who was possibly running a fever and sating in high 80's on RA. Patient arrived on 2L NC and was sating 96%-98% with ear probe. Lungs assessed and found to have insp crackles throughout posterior & exp diminished along with insp and exp diminished in anterior middle lobes. Home medications discussed and found patient didn't take his home Advair this morning. RT left patient on 2L O2 and had an SpO2 ranging from 93%-98% while in room with him. RT checked with Doctor and RT free to leave as patient doing good and talking in full sentences.
[2021-02-28] MEDS: Normal Saline - Diluent 50 ML VIAL IV (15:43)
[2021-02-28] MEDS: Omnipaque 350 MG/ML 100 ML BTL IJ (15:43)
[2021-02-28 15:44] LABS: Ferritin 676 ng/mL (26-388)
--- NOTE | 2021-02-28 16:21 | DI.VRAD_ITS ---
PROCEDURE INFORMATION: Exam: CTA Chest With Contrast Exam date and time: 02/28/2021 4:00 PM Age: 50 years old Clinical indication: Shortness of breath; Patient HX: Covid +, SOB TECHNIQUE: Imaging protocol: Computed tomographic angiography of the chest with contrast. 3D rendering (Not supervised by radiologist): MIP and/or 3D reconstructed images were created by the technologist. COMPARISON: No relevant prior studies available. FINDINGS: Pulmonary arteries: There is no evidence of pulmonary embolus. Aorta: The aorta is within normal limits. Thyroid: The thyroid gland is within normal limits. Lungs: There are multifocal multi lobar areas of ground-glass opacification and infiltrates. Pleural spaces: Unremarkable. No pneumothorax. No pleural effusion. Heart: The heart and pericardium are within normal limits. Lymph nodes: No enlarged lymph nodes. Bones/joints: There are degenerative changes of the thoracic spine. Soft tissues: Unremarkable. IMPRESSION: 1. No evidence of pulmonary embolus. 2. Multifocal multi lobar areas of ground-glass opacification and infiltrates.Commonly reported imaging features of COVID-19 pneumonia are present. Other processes such as influenza pneumonia and organizing pneumonia, as can be seen with drug toxicity and connective tissue disease, can cause a similar imaging pattern. (Reference: Helder). REFERENCES: Helder S, et al., Radiological Society of [place] Expert Consensus Statement on Reporting Chest CT Findings Related to COVID-19. Endorsed by the Society of Thoracic Radiology, the [place] [employer], and RSNA. Published January 14, 2020. Dictated and Authenticated by: Anthony Soni MD. Ordering:BRIAN Butt MD
[2021-02-28] MEDS: Doxycycline Hyclate 100 MG CAP PO (18:29)
[2021-02-28] MEDS: cefTRIAXone 1 GM/50 ML BAG IVPB (18:37)
--- NOTE | 2021-02-28 18:44 | W.PM.HP.N ---
Date of service: 02/28/21 Time of Service: 18:44 Assessment and Plan Assessment and plan (1) COVID-19: Status: Acute Assessment and plan: COVID pneumonia. Likely not bacterial but will cover with abx in addition to Dexa/Remdesivir. Oxygenating satisfactorily at present. History of Present Illness History of Present Illness Chief Complaint: SOB Narrative: 50 male, unvaccinated, partner has COVID. Reports 6 days fever, constitutional sxx, diarrhea, loss of taste... and now one day6 of cough. Was in for MAB, sats to 80s noited and sent here for further eval. In ER findikngs of note for: temp to 39.3; sats to 79; elevations in d-Dimer, LDH, ferritin and TAs; and CT showing extensive bilateral opacities. Has received Dexa, remdesivir, Rocephin and Doxy, is admitted for further management. Review of Systems All systems reviewed & are unremarkable except as noted in HPI and below PFSH Medical History Achilles tendinitis, right leg Adenomatous polyps Anxiety and depression Chronic back pain Chronic pain of both knees COPD (chronic obstructive pulmonary disease) Gastritis (10/09/11) w/ small punctate erosions likely secondary to NSAID use Gastroesophageal reflux disease Generalized osteoarthritis (02/21/18) Paul's deformity of right heel Hepatic steatosis Negative viral hepatitis serology 05/2018 Hyperlipidemia, unspecified 11/2020 labs: adequate response to moderate intensity statin, continue Obesity (BMI 30-39.9) Obstructive sleep apnea (10/04/17) severe CPAP. Sleep Service [facility] Pancreatitis (01/23/18) Right hip pain Seborrheic dermatitis Suicide attempt Tobacco use disorder QUIT 03/2018 Type 2 diabetes mellitus (~10/2019) Surgical History EGD (~09/2019) 2010 Duodenitis, gastritis Extraction of cataract removal, insert prosthetic lens (10/19/2015):Left removal, insert prosthetic lens (06/23/2014):Right hand surgery (1993) History of colonoscopy (~10/09/19) Family History Mother Depression Heart disease Hypertension Anxiety Father Heart disease Stroke Sister Alzheimers disease Breast cancer Diabetes Social History Smoking/Tobacco Use Status: Former Tobacco Use tobacco type: cigarettes Quit Date: 10/22/17 Pack-years: 120 Smoking risk assessment performed?: Yes Alcohol Intake: never Drug use: Never Substance use type: does not use Caregiver/Support person: No Housing: apartment Number of Children: 3 Communication Needs: None Pets and animals: Yes Pets and animals: cat(s), dog(s), snake(s) and other Details: pankaj Do you think of yourself as: straight/heterosexual Current gender identity: male What is your relationship status?: How often do you talk on the phone with friends or family?: three or more times per week How often do you get together with friends or relatives?: three or more times per week How often do you attend tenriism or roman catholic services?: decline to answer Do you belong to any clubs or organized social groups?: no Panel score (0-1 are the most socially isolated patients): 1 What type of physical activity do you participate in: none Duration: 15-30 minutes/day Frequency: 5-6 times per week Special maxime needs: No Seatbelt use: always Helmet use: Yes Drive intox or 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/intox 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: No Do you feel safe at home: Yes Do you feel safe in your relationship?: Yes Meds Allergies and Home Medications Allergies Allergy/AdvReac Type Severity Reaction Status Date / Time [facility] AdvReac headaches Verified 02/08/21 08:40 ivory soap Allergy Mild Itching Uncoded 02/08/21 08:40 swollen eyes Home Medications Medication Instructions Recorded Confirmed Type nystatin 15 gm TOPICAL PRN 03/22/17 02/28/21 History aspirin [Aspir-Low] 81 mg PO HS 10/31/18 02/28/21 History multivitamin 1 cap PO HS 12/30/18 02/28/21 History ibuprofen 600 mg tablet 600 mg PO TID PRN #60 tab-cap 02/14/19 02/28/21 Rx albuterol sulfate 90 mcg/actuation 1 - 2 puff IH Q4H PRN #1 device 04/03/19 02/28/21 Rx aerosol inhaler blood-glucose meter #1 each 11/06/19 02/28/21 Rx blood sugar diagnostic #200 each 12/15/19 02/28/21 Rx lancets #200 each 12/15/19 02/28/21 Rx pen needle, diabetic 32 gauge x #200 each 12/15/19 02/28/21 Rx 5/32 insulin glargine 100 unit/mL (3 18 unit SUBCUT DAILY #18 syringe 04/29/20 12/24/20 Rx mL) subcutaneous pen pantoprazole 40 mg tablet,delayed 40 mg PO QAM #90 tab-cap 05/20/20 02/28/21 Rx release fluticasone 500 mcg-salmeterol 50 1 inh INHALATION BID #3 unit 10/01/20 02/28/21 Rx mcg/dose blistr powdr for inhalation metformin 1,000 mg tablet 1,000 mg PO BID #180 tab 10/20/20 02/28/21 Rx simvastatin 40 mg tablet 40 mg PO QPM #90 tab-cap 11/22/20 02/28/21 Rx liraglutide 0.6 mg/0.1 mL (18 mg/3 0.6 mg SC DAILY #3 syringe 12/10/20 02/28/21 Rx mL) subcutaneous pen injector bupropion HCl 300 mg 24 hr tablet, 300 mg PO DAILY #90 tab 12/24/20 02/28/21 Rx extended release diclofenac sodium 1 % topical gel 2 - 4 g TOPICAL QID PRN #100 g 12/24/20 02/28/21 Rx meloxicam 15 mg tablet 15 mg PO DAILY #30 tab 12/24/20 02/28/21 Rx citalopram 40 mg tablet 40 mg PO HS #90 tab 01/06/21 02/28/21 Rx hydroxyzine HCl 50 mg tablet 50 mg PO BID PRN #180 tab 01/06/21 02/28/21 Rx Exam Narrative Exam Narrative: 109/64, 68; 39.3; 32, 94% 2L. HEENT atraumatic; neck supple; lungs scattered wheeze and rhochii; heart RRR; abdomen soft and NT; extremities w/o edema; neuro Ox3, moves all 4s Results Labs Result diagrams: 02/28/21 14:20 02/28/21 14:20 Labs: Laboratory Results - last 24 hr 02/28/21 02/28/21 02/28/21 14:20 14:20 14:20 WBC 4.13 L RBC 4.46 Hgb 13.0 L Hct 38.7 L MCV 86.8 MCH 29.1 MCHC 33.6 RDW 13.2 Plt Count 148 MPV 9.0 Immature Gran % 0.7 Neutrophils % 62.8 Lymphocytes % 32.2 Monocytes % 4.1 Eosinophils % 0.0 Basophils % 0.2 Nucleated RBC % 0 Absolute Neutrophils 2.59 Absolute Lymphocytes 1.33 Absolute Monocytes 0.17 Absolute Eosinophils 0.00 Absolute Basophils 0.01 D-Dimer VBG Lactate 1.0 Sodium 135 L Potassium 4.3 Chloride 100 Carbon Dioxide 20.3 L Anion Gap 14.7 H BUN 14 Creatinine 1.1 Estimated GFR/1.73 m2 >= 60.00 Glucose 99 Calcium 8.3 L Ferritin 676 H Total Bilirubin 0.4 AST 110 H ALT 112 H Alkaline Phosphatase 90 Lactate Dehydrogenase 470 H Troponin I < 0.05 C-Reactive Protein 2.19 H Total Protein 7.5 Albumin 3.6 Procalcitonin 0.1 02/28/21 14:20 WBC RBC Hgb Hct MCV MCH MCHC RDW Plt Count MPV Immature Gran % Neutrophils % Lymphocytes % Monocytes % Eosinophils % Basophils % Nucleated RBC % Absolute Neutrophils Absolute Lymphocytes Absolute Monocytes Absolute Eosinophils Absolute Basophils D-Dimer 584 H VBG Lactate Sodium Potassium Chloride Carbon Dioxide Anion Gap BUN Creatinine Estimated GFR/1.73 m2 Glucose Calcium Ferritin Total Bilirubin AST ALT Alkaline Phosphatase Lactate Dehydrogenase Troponin I C-Reactive Protein Total Protein Albumin Procalcitonin Last Vital Signs Temp 39.3 C H 02/28/21 14:01 Pulse 66 02/28/21 17:46 Resp 32 H 02/28/21 17:50 BP 109/64 02/28/21 17:46 Pulse Ox 94 02/28/21 17:40 COVID-19 Screening Have you, or household traveled for leisure in last 14 days?: No Had IN PERSON contact w/suspected or confirmed C-19 person: No
[2021-02-28 19:17] LABS: Troponin I < 0.05 ng/mL (<0.06)
[2021-02-28] MEDS: metFORMIN 500 MG TAB 1000 MG PO (21:16)
[2021-02-28] MEDS: Heparin 5,000 UNITS/ML VIAL 5000 UNITS SC (21:18)
[2021-02-28] MEDS: Albuterol HFA 8 GM 60 PUFF INH IH (21:23)
[2021-02-28] MEDS: Budesonide/Formoterol 160/4.5 6 GM 60 PUFF INH IH (21:25)
[2021-02-28] MEDS: Normal Saline Flush 10 ML SYR IVP (21:25)
[2021-02-28] MEDS: Normal Saline 500 ML 30 ML IV (21:26)
[2021-02-28] MEDS: Aspirin E.C. 81 MG TABEC PO (22:58)
[2021-02-28] MEDS: Citalopram 20 MG TAB 40 MG PO (22:59)
[2021-03-01] VITALS (14 sets, daily range): BP systolic 82–121; BP diastolic 48–70; PULSE 70–85; RESP 16–20; TEMP 35.5–37.1; O2SAT 92–97
[2021-03-01] MEDS: Heparin 5,000 UNITS/ML VIAL 5000 UNITS SC (06:10)
[2021-03-01] MEDS: DOXYCYCLINE 100 MG in Normal Saline 100 ML IVPB ×2 (06:10→17:34)
[2021-03-01] MEDS: metFORMIN 500 MG TAB 1000 MG PO (08:51)
[2021-03-01] MEDS: Dexamethasone 4 MG TAB 6 MG PO (08:52)
[2021-03-01] MEDS: Meloxicam 15 MG TAB PO (08:52)
[2021-03-01] MEDS: Budesonide/Formoterol 160/4.5 6 GM 60 PUFF INH IH ×2 (08:53→19:49)
[2021-03-01] MEDS: Pantoprazole 40 MG TABCR PO (08:53)
[2021-03-01] MEDS: buPROPion-XL 150 MG TABCR 300 MG PO (08:53)
--- NOTE | 2021-03-01 10:11 | W.INDIABCONS ---
Date of service: 03/01/21 Time of Service: 10:12 Diabetes Inpatient Consult DESCRIPTION/ASSESSMENT: 50 year old male admitted with Covid 19 PNA with hx of obesity, DM 2 and hepatic steatosis. Most recent A1C 6.4% (12/10/20) indicates good glycemic control on current DM meds. Home DM meds include lantus 18 u HS, Metformin 1000 mg BID and liraglutide qd. Following diabetic diet with excellent intake (100%). Not considered at nutritional risk. Dm well controlled at this time. Education not warranted at this time. Will be available prn. PLAN: continue current meal plan, will continue to follow po intake, labs, meds and weight Time Spent in Nutritional Counseling and Treatment: 0
[2021-03-01 10:34] LABS: BE -3 mmol/L (-2-3); HCO3 22 mmol/L (22-26); pCO2 36 mmHg (35-45); pH 7.39 (7.35-7.45); pO2 73 mmHg (80-105); sO2 93 % (95-98); tCO2 20 mmol/L (23-27)
[2021-03-01 10:38] LABS: FIO2L 4 L; Site Right Radial
--- NOTE | 2021-03-01 11:09 | INITIAL_ITS ---
- If Service Date Differs Date of service: 03/01/21 Time of Service: 11:09 Care Management Initial Assess REASON FOR HOSPITALIZATION:: Covid 19 + PAST MEDICAL HISTORY/PAST SURGICAL HISTORY:: Medical History. Achilles tendinitis, right leg. Adenomatous polyps. Anxiety and depression. Chronic back pain. Chronic pain of both knees. COPD (chronic obstructive pulmonary disease). Gastritis (10/09/11). w/ small punctate erosions likely secondary to NSAID use. Gastroesophageal reflux disease. Generalized osteoarthritis (02/21/18). Paul's deformity of right heel. Hepatic steatosis. Negative viral hepatitis serology 05/2018. Hyperlipidemia, unspecified. 11/2020 labs: adequate response to moderate intensity statin, continue. Obesity (BMI 30- 39.9). Obstructive sleep apnea (10/04/17). severe CPAP. [facility] [place]. Pancreatitis (01/23/18). Right hip pain. Seborrheic dermatitis. Suicide attempt. Tobacco use disorder. QUIT 03/2018. Type 2 diabetes mellitus (~10/2019). Surgical History. EGD (~09/2019). 2011 Duodenitis, gastritis. Extraction of cataract. removal, insert prosthetic lens (10/19/2015):Left. removal, insert prosthetic lens (06/23/2014):Right. hand surgery. (1993). History of colonoscopy (~10/09/19) PREVIOUS FUNCTIONAL STATUS/SOCIAL/FAMILY SUPPORTS:: Awais is currently living with his step daughter, Sahara, and her s/o. He no longer works, and is on disability due to a previous injury. He is , but is close with his step children, who are supportive. He is independent at baseline. CURRENT FUNCTIONAL STATUS:: Awais is currently on precautions for Covid 19, therefore CM did not visit him in person. CM called and left a voicemail on his cell phone, and also called to talk to his step son and step daughter, who provided information about Awais. RT asked CM to inquire about his CPAP machine, which the family is unable to bring. RT will supply a CPAP during this admission. CM will continue to follow. ADVANCE DIRECTIVES:: On file, [employer] and [employer] listed as agents. Has patient been provided with info about the portal/API?: Yes Did the patient sign up for the portal?: Yes CODE STATUS:: Full Code INSURANCE COVERAGE / FINANCIAL ISSUES:: [employer] CURRENT HOME/COMMUNITY SERVICES/EQUIPMENT:: No current services or equipment known. PRIMARY CARE PHYSICIAN:: Griselda Vides POTENTIAL DISCHARGE NEEDS:: Evaluations for further needs, follow up appointm ents. PATIENT/FAMILY EDUCATION NEEDS:: Review discharge instructions regarding activity levels, medications and oxygen needs, discussion of self care needs including ask me three. ANTICIPATED BARRIERS TO DISCHARGE:: Awais is currently requiring 4L O2, and he does not require O2 at baseline. TRANSPORTATION:: Awais will likely be transported home via ambulance due to his Covid status. PLAN:: Awais is being closely monitored at this time. Once he is medically cleared he will return home via [facility], due to his Covid status. He will follow up with his PCP and discharge plan of care. CM will continue to follow.
[2021-03-01 11:35] LABS: Abs Immature Grans 0.03 10^3/uL (0.0-0.06); Absolute Basophil Count 0.01 10^3/uL (0.0-0.2); Absolute Lymphocyte Count 1.01 10^3/uL (1.2-3.4); Absolute Monocyte Count 0.23 10^3/uL (0.1-0.8); Absolute Neutrophil Count 3.64 10^3/uL (1.2-6.7); Basophils % 0.2; HCT 35.5 % (40.0-50.0); HGB 11.7 g/dL (13.5-17.5); Immature Grans % 0.6; Lymphocytes % 20.5; MCV 88.1 fL (80-95); MPV 8.8 fL (8.0-11.0); Monocytes % 4.7; Nucleated RBC 0 %; Platelet Count 176 10^3/uL (130-400); RBC 4.03 10^6/uL (4.36-5.78); RDW 13.2 % (11.8-14.1); RDW-SD 42.6 fL; WBC 4.92 10^3/uL (4.4-10.8)
[2021-03-01 11:51] LABS: ALT 89 U/L (16-63); AST 64 U/L (15-37); Albumin 3.2 g/dL (3.4-5.0); Alkaline Phosphatase 84 U/L (46-116); Anion Gap 9.9 mmol/L (3-11); BUN 16 mg/dL (7-18); Bilirubin, Direct 0.1 mg/dL (0.0-0.2); Bilirubin, Total 0.3 mg/dL (0.2-1.0); C-Reactive Protein 2.06 mg/dL (0.0-0.3); CO2 25.1 mmol/L (21.0-32.0); Calcium 8.8 mg/dL (8.5-10.1); Chloride 107 mmol/L (98-107); Glucose 164 mg/dL (74-106); Magnesium 1.9 mg/dL (1.8-2.4); Potassium 4.3 mmol/L (3.5-5.1); Sodium 142 mmol/L (136-145); Total Protein 6.9 g/dL (6.4-8.2)
[2021-03-01] MEDS: Enoxaparin 60 MG/0.6 ML SYR SC ×2 (11:57→22:49)
[2021-03-01] MEDS: Cholecalciferol (Vitamin D3) 1,000 UNIT TAB 2000 UNITS PO (11:58)
[2021-03-01] MEDS: Acetaminophen 325 MG TAB 650 MG PO (11:58)
[2021-03-01 12:08] LABS: D-Dimer 425 ng/mlFEU (<500)
[2021-03-01 12:18] LABS: Ferritin 566 ng/mL (26-388)
--- NOTE | 2021-03-01 12:25 | PHACLINREV_ITS ---
Pharmacy Admission Review - Admission Clinical Review (Last Reviewed 02/28/21 @ 18:49 by Noé Love MD) [facility] Adverse Reaction (Verified 02/08/21 08:40) headaches ivory soap Allergy (Mild, Uncoded 02/08/21 08:40) Itching swollen eyes Height 5 ft 8 in Weight 113 kg - Comments Comments/Follow Ups: Trend C-reactive Protein, Procalcitonin, Ferritin, ALT, Lactate, D-dimer, H/H 11.7/35.5. Blood cultures pending. Chest CT shows bilateral infiltrates-Rocephin/Doxy in case bacterial, PE ruled out. Did not receive loading dose of Remdesivir while in the ED since labwork had not been resulted, did receive 100mg Remdesivir last evening, this morning added another 100mg and will continue 100mg x 4 more days. Re-evaluate if more than 5 days of treatment is needed. Oxygen is at 3 L/min with Sats 93%. Patient refused proning this morning. Vit C & D, Decadron, Famotidine, Zinc ordered. - Renal Dosing Renal Dosing: BUN 16 mg/dL (7-18) 03/01/21 11:22 Creatinine 1.0 mg/dL (0.70-1.30) 03/01/21 11:22 Medications needing adjustments: Reviewed (eGFR>60, SCr 1.0) List of meds needing interventions: Patient did receive contrast....Metformin should not have been given x2 doses, Metformin dc'd, alhough since the patient's SCr and eGFR are not compromised, hospital policy states: There is no need to discontinue Metformin prior to or following the IV administration of contrast media..will let MD know. - Anticoagulation Anticoagulation: Hgb 11.7 g/dL (13.5-17.5) L 03/01/21 11:22 Hct 35.5 % (40.0-50.0) L 03/01/21 11:22 Plt Count 176 10^3/uL (130-400) 03/01/21 11:22 Creatinine 1.0 mg/dL (0.70-1.30) 03/01/21 11:22 Therapeutic Anticoagulation: Reviewed Medications: Enoxaparin (Lovenox 60mg Q12h) - Relevant Labs Sodium 142 mmol/L (136-145) 03/01/21 11:22 Potassium 4.3 mmol/L (3.5-5.1) 03/01/21 11:22 Chloride 107 mmol/L (98-107) 03/01/21 11:22 Magnesium 1.9 mg/dL (1.8-2.4) 03/01/21 11:22 C-Reactive Protein 2.06 mg/dL (0.0-0.3) H 03/01/21 11:22 Electrolytes, C-Reactive P, ESR: Reviewed (labs improved overnight: D-dimer 425, C-reactive protein 2.06, ALT 89, Ferritin 566) - DM Control DM Control: Glucose 164 mg/dL (74-106) H 03/01/21 11:22 Finger Stick Blood Glucose 133 Finger Stick Blood Glucose 133 Finger Stick Blood Glucose 133 Finger Stick Blood Glucose 128 Finger Stick Blood Glucose 128 Finger Stick Blood Glucose 128 Insulin Dosing: Reviewed (Novolog scale, Pt's own Victoza (not brought in at this time)) - Heart Failure/WI Heart Failure/WI: Troponin I < 0.05 ng/mL (<0.06) 02/28/21 18:45 EF%, AYAN's, B-Blockers, Diuretics: Reviewed - BP Control BP Control: Blood Pressure 102/64 Blood Pressure 97/57 Blood Pressure 121/70 If elevated: Reviewed - Qtc Review If Elevated: Reviewed (QTC 499 (Celexa, Bupropion)) - IV to PO Switch IV Medications: Reviewed (Antibiotics/Antiviral) - Home Meds Home Med List reviewed: Reviewed Relevent Home Meds Not ordered & why?: Simvastatin, Protonix (on Famotidine), Advair, Metformin (rec'd contrast), Ibuprofen - Current meds Current Medication Order Review: Reviewed (Will ask MD if patient should continue Mobic with both Lovenox and Decadron ordered)
--- NOTE | 2021-03-01 13:05 | PGE_ITS ---
Date of Service Date of service: 03/01/21 Time of Service: 13:10 Assessment and Plan Assessment and plan (1) COVID-19: Status: Acute Assessment and plan: Causing pneumonia and acute hypoxic respiratory failure. Continue decadron, remdesivir; added vitamin C, D, zinc, atorvastatin, pepcid, melatonin. Conitnue proning. Continue empiric abx. Change to intermediate dose lovenox. (2) Acute respiratory failure with hypoxia: Status: Acute Assessment and plan: As above Provide CPAP tonight. Wean O2 as tolerated (3) Obstructive sleep apnea: Status: Chronic Assessment and plan: CPAP at night (4) Type 2 diabetes mellitus: Status: Chronic Assessment and plan: Continue SSI Qualifiers: Diabetes mellitus adjunct faculty for medical terminology insulin use: with adjunct faculty for medical terminology use Diabetes mellitus complication status: without complication Qualified Code(s): E11.9 - Type 2 diabetes mellitus without complications; Z79.4 - prison (current) use of insulin (5) DVT prophylaxis: Status: Acute Assessment and plan: lovenox 60 mg SC Q12H (6) Discharge planning issues: Status: Acute Assessment and plan: Full code Continues to require hospitalization. Subjective Subjective Interval history since last seen: Mr Iqbal feels better. Denies dizziness, chest pain, shortness of breath, nausea. He did have diarrhea. He is compliant with proning. He is on 3L of O2. Exam Narrative Exam Narrative: General: Pleasant middle-aged male who is proning when I came to see him, A&ox3, no respiratory distress HEENT: EOMI, MMM Heart: RRR (auscultated posteriorly) Lungs: CTAB posteriorly Abdomen: not examined as the patient is proning Extremities:no edema BLE's Objective Last Vital Signs Temp 37.1 C 03/01/21 12:07 Pulse 77 03/01/21 12:07 Resp 19 03/01/21 12:07 BP 102/64 03/01/21 12:07 Pulse Ox 93 03/01/21 12:07 Laboratory Results - last 24 hr 02/28/21 02/28/21 02/28/21 14:20 14:20 14:20 WBC 4.13 L RBC 4.46 Hgb 13.0 L Hct 38.7 L MCV 86.8 MCH 29.1 MCHC 33.6 RDW 13.2 Plt Count 148 MPV 9.0 Immature Gran % 0.7 Neutrophils % 62.8 Lymphocytes % 32.2 Monocytes % 4.1 Eosinophils % 0.0 Basophils % 0.2 Nucleated RBC % 0 Absolute Neutrophils 2.59 Absolute Lymphocytes 1.33 Absolute Monocytes 0.17 Absolute Eosinophils 0.00 Absolute Basophils 0.01 D-Dimer ABG Sample Site ABG pH ABG pCO2 ABG pO2 ABG HCO3 ABG Total CO2 ABG O2 Saturation ABG Base Excess VBG Lactate 1.0 Oxygen Liter Flow Sodium 135 L Potassium 4.3 Chloride 100 Carbon Dioxide 20.3 L Anion Gap 14.7 H BUN 14 Creatinine 1.1 Estimated GFR/1.73 m2 >= 60.00 Glucose 99 Calcium 8.3 L Magnesium Ferritin 676 H Total Bilirubin 0.4 Conjugated Bilirubin AST 110 H ALT 112 H Alkaline Phosphatase 90 Lactate Dehydrogenase 470 H Troponin I < 0.05 C-Reactive Protein 2.19 H Total Protein 7.5 Albumin 3.6 Procalcitonin 0.1 02/28/21 02/28/21 03/01/21 14:20 18:45 10:32 WBC RBC Hgb Hct MCV MCH MCHC RDW Plt Count MPV Immature Gran % Neutrophils % Lymphocytes % Monocytes % Eosinophils % Basophils % Nucleated RBC % Absolute Neutrophils Absolute Lymphocytes Absolute Monocytes Absolute Eosinophils Absolute Basophils D-Dimer 584 H ABG Sample Site Right radial ABG pH 7.39 ABG pCO2 36 ABG pO2 73 L ABG HCO3 22 ABG Total CO2 20 L ABG O2 Saturation 93 L ABG Base Excess -3 L VBG Lactate Oxygen Liter Flow 4 Sodium Potassium Chloride Carbon Dioxide Anion Gap BUN Creatinine Estimated GFR/1.73 m2 Glucose Calcium Magnesium Ferritin Total Bilirubin Conjugated Bilirubin AST ALT Alkaline Phosphatase Lactate Dehydrogenase Troponin I < 0.05 C-Reactive Protein Total Protein Albumin Procalcitonin 03/01/21 03/01/21 03/01/21 11:22 11:22 11:22 WBC 4.92 RBC 4.03 L Hgb 11.7 L Hct 35.5 L MCV 88.1 MCH 29.0 MCHC 33.0 RDW 13.2 Plt Count 176 MPV 8.8 Immature Gran % 0.6 Neutrophils % 74.0 Lymphocytes % 20.5 Monocytes % 4.7 Eosinophils % 0.0 Basophils % 0.2 Nucleated RBC % 0 Absolute Neutrophils 3.64 Absolute Lymphocytes 1.01 L Absolute Monocytes 0.23 Absolute Eosinophils 0.00 Absolute Basophils 0.01 D-Dimer 425 ABG Sample Site ABG pH ABG pCO2 ABG pO2 ABG HCO3 ABG Total CO2 ABG O2 Saturation ABG Base Excess VBG Lactate Oxygen Liter Flow Sodium 142 Potassium 4.3 Chloride 107 Carbon Dioxide 25.1 Anion Gap 9.9 BUN 16 Creatinine 1.0 Estimated GFR/1.73 m2 >= 60.00 Glucose 164 H Calcium 8.8 Magnesium 1.9 Ferritin 566 H Total Bilirubin 0.3 Conjugated Bilirubin 0.1 AST 64 H ALT 89 H Alkaline Phosphatase 84 Lactate Dehydrogenase Troponin I C-Reactive Protein 2.06 H Total Protein 6.9 Albumin 3.2 L Procalcitonin
[2021-03-01] MEDS: Normal Saline 1,000 ML 1000 ML IV (16:28)
[2021-03-01] MEDS: Ipratropium/Albuterol 4 GM 120 PUFF INH IH ×2 (16:37→19:50)
[2021-03-01] MEDS: Insulin Aspart 300 UNITS/3 ML PEN SC ×2 (16:39→22:50)
[2021-03-01] MEDS: Benzonatate 200 MG CAP PO (21:12)
[2021-03-01] MEDS: Ascorbic Acid 500 MG TAB 1000 MG PO (21:12)
[2021-03-01] MEDS: Famotidine 20 MG TAB PO (21:12)
[2021-03-01] MEDS: Atorvastatin 40 MG TAB PO (21:12)
[2021-03-01] MEDS: cefTRIAXone 1 GM/50 ML BAG IVPB (21:13)
[2021-03-01] MEDS: Melatonin 3 MG TAB PO (22:49)
[2021-03-01] MEDS: Aspirin E.C. 81 MG TABEC PO (22:49)
[2021-03-01] MEDS: Citalopram 20 MG TAB 40 MG PO (22:49)
[2021-03-02] VITALS (13 sets, daily range): BP systolic 96–112; BP diastolic 57–68; PULSE 60–79; RESP 18–20; TEMP 36.2–36.4; O2SAT 91–95
[2021-03-02] MEDS: Normal Saline Flush 10 ML SYR IVP ×3 (01:08→21:09)
[2021-03-02] MEDS: DOXYCYCLINE 100 MG in Normal Saline 100 ML IVPB ×2 (05:01→17:18)
[2021-03-02 07:41] LABS: Abs Immature Grans 0.14 10^3/uL (0.0-0.06); Absolute Basophil Count 0.01 10^3/uL (0.0-0.2); Absolute Lymphocyte Count 1.27 10^3/uL (1.2-3.4); Absolute Monocyte Count 0.33 10^3/uL (0.1-0.8); Absolute Neutrophil Count 4.49 10^3/uL (1.2-6.7); Basophils % 0.2; HCT 36.8 % (40.0-50.0); HGB 12.1 g/dL (13.5-17.5); Immature Grans % 2.2; Lymphocytes % 20.4; MCH 28.9 pg (27.0-33.0); MCHC 32.9 % (32.0-36.0); MCV 87.8 fL (80-95); MPV 8.9 fL (8.0-11.0); Monocytes % 5.3; Neutrophils % 71.9; Nucleated RBC 0 %; Platelet Count 220 10^3/uL (130-400); RBC 4.19 10^6/uL (4.36-5.78); RDW 13.3 % (11.8-14.1); RDW-SD 42.9 fL; WBC 6.24 10^3/uL (4.4-10.8)
[2021-03-02 08:10] LABS: ALT 80 U/L (16-63); AST 54 U/L (15-37); Albumin 3.2 g/dL (3.4-5.0); Alkaline Phosphatase 86 U/L (46-116); Anion Gap 9.3 mmol/L (3-11); BUN 15 mg/dL (7-18); Bilirubin, Direct 0.1 mg/dL (0.0-0.2); Bilirubin, Total 0.3 mg/dL (0.2-1.0); C-Reactive Protein 1.03 mg/dL (0.0-0.3); CO2 25.7 mmol/L (21.0-32.0); Calcium 8.6 mg/dL (8.5-10.1); Chloride 112 mmol/L (98-107); Creatine Kinase 149 U/L (39-308); Glucose 159 mg/dL (74-106); Potassium 4.2 mmol/L (3.5-5.1); Sodium 147 mmol/L (136-145); Total Protein 7.1 g/dL (6.4-8.2)
[2021-03-02 08:12] LABS: D-Dimer 364 ng/mlFEU (<500)
[2021-03-02] MEDS: Ipratropium/Albuterol 4 GM 120 PUFF INH IH ×4 (08:21→21:12)
[2021-03-02] MEDS: Budesonide/Formoterol 160/4.5 6 GM 60 PUFF INH IH ×2 (08:21→21:10)
[2021-03-02 08:38] LABS: Ferritin 552 ng/mL (26-388)
[2021-03-02] MEDS: Benzonatate 200 MG CAP PO ×3 (08:40→21:09)
[2021-03-02] MEDS: buPROPion-XL 150 MG TABCR 300 MG PO (08:40)
[2021-03-02] MEDS: Zinc Sulfate 220 MG TAB PO (08:41)
[2021-03-02] MEDS: Dexamethasone 4 MG TAB 6 MG PO (08:41)
[2021-03-02] MEDS: Meloxicam 15 MG TAB PO (08:41)
[2021-03-02] MEDS: Cholecalciferol (Vitamin D3) 1,000 UNIT TAB 2000 UNITS PO (08:41)
[2021-03-02] MEDS: Famotidine 20 MG TAB PO ×2 (08:41→21:09)
[2021-03-02] MEDS: Ascorbic Acid 500 MG TAB 1000 MG PO ×2 (08:42→21:09)
[2021-03-02] MEDS: Enoxaparin 60 MG/0.6 ML SYR SC ×2 (10:45→22:02)
[2021-03-02] MEDS: TOCILIZUMAB 800 MG in Normal Saline 60 ML 100 MG IVPB (10:45)
[2021-03-02] MEDS: Insulin Aspart 300 UNITS/3 ML PEN SC ×3 (12:12→22:07)
--- NOTE | 2021-03-02 16:25 | CMPROGNOTE_ITS ---
- If Service Date Differs Date of service: 03/02/21 Time of Service: 16:25 Care Management Progress Note S/O: Awais continues to be monitored at M/S level of care. Per MD report, his Covid 19 infection is causing pneumonia and acute hypoxic respiratory failure. He will continue to receive decadron and remdesivir, as well as empiric abx. CM will continue to follow. A: Awais is a 50 year old male admitted to [facility] on 02/28/21 with Covid. P: Awais is being closely monitored at this time. Once he is medically cleared he will return home via [facility], due to his Covid status. He will follow up with his PCP and discharge plan of care. CM will continue to follow.
--- NOTE | 2021-03-02 16:53 | PGE_ITS ---
Date of Service Date of service: 03/02/21 Time of Service: 16:54 Assessment and Plan Assessment and plan (1) COVID-19: Status: Acute Assessment and plan: Causing pneumonia and acute hypoxic respiratory failure. S/p tocilizumab today. Continue decadron, remdesivir, vitamin C, D, zinc, atorvastatin, pepcid, melatonin. Conitnue proning. Continue empiric abx. Continue intermediate dose lovenox. Consider transfer to a tertiary care facility if O2 requirement worsens. (2) Acute respiratory failure with hypoxia: Status: Acute Assessment and plan: As above Provide CPAP tonight. Wean O2 as tolerated (3) Obstructive sleep apnea: Status: Chronic Assessment and plan: CPAP at night (4) Type 2 diabetes mellitus: Status: Chronic Assessment and plan: Continue SSI Qualifiers: Diabetes mellitus detention insulin use: with exterminator helper termite use Diabetes mellitus complication status: without complication Qualified Code(s): E11.9 - Type 2 diabetes mellitus without complications; Z79.4 - exterminator helper termite (current) use of insulin (5) DVT prophylaxis: Status: Acute Assessment and plan: lovenox 60 mg SC Q12H (6) Discharge planning issues: Status: Acute Assessment and plan: Full code Continues to require hospitalization. Low threshold to transfer to a tertiary care facility. Subjective Subjective Interval history since last seen: Feels a little better today. Breathing is a little better. Diarrhea is slowing down. Denies dizziness. Endorses his chronic chest pain (that he states he has had ever since he was diagnosed with COPD). Denies n/v. He spent the night on CPAP (normally uses at home). His O2 was bumped up to 4L yesterday evening and to 5L today. Respiratory therapy is thinking about putting him on humidified heated high flow canula. The patient is s/p tocilizumab today. Exam Narrative Exam Narrative: General: Pleasant middle-aged male, laying on his right side HEENT: EOMI, MMM Heart: RRR ( Lungs: Crackles right base; diminished breath sounds on L Abdomen: soft, nontender, nondistended Extremities:no edema BLE's Objective Last Vital Signs Temp 36.2 C L 03/02/21 15:37 Pulse 77 03/02/21 15:37 Resp 18 03/02/21 15:37 BP 108/65 03/02/21 15:37 Pulse Ox 94 03/02/21 16:18 Laboratory Results - last 24 hr 03/02/21 03/02/21 03/02/21 07:24 07:24 07:24 WBC 6.24 RBC 4.19 L Hgb 12.1 L Hct 36.8 L MCV 87.8 MCH 28.9 MCHC 32.9 RDW 13.3 Plt Count 220 MPV 8.9 Immature Gran % 2.2 Neutrophils % 71.9 Lymphocytes % 20.4 Monocytes % 5.3 Eosinophils % 0.0 Basophils % 0.2 Nucleated RBC % 0 Absolute Neutrophils 4.49 Absolute Lymphocytes 1.27 Absolute Monocytes 0.33 Absolute Eosinophils 0.00 Absolute Basophils 0.01 D-Dimer 364 Sodium 147 H Potassium 4.2 Chloride 112 H Carbon Dioxide 25.7 Anion Gap 9.3 BUN 15 Creatinine 1.0 Estimated GFR/1.73 m2 >= 60.00 Glucose 159 H Calcium 8.6 Magnesium 2.0 Ferritin 552 H Total Bilirubin 0.3 Conjugated Bilirubin 0.1 AST 54 H ALT 80 H Alkaline Phosphatase 86 Creatine Kinase 149 C-Reactive Protein 1.03 H Total Protein 7.1 Albumin 3.2 L
[2021-03-02] MEDS: Atorvastatin 40 MG TAB PO (21:08)
[2021-03-02] MEDS: cefTRIAXone 1 GM/50 ML BAG IVPB (21:09)
[2021-03-02] MEDS: Melatonin 3 MG TAB PO (22:02)
[2021-03-02] MEDS: Aspirin E.C. 81 MG TABEC PO (22:02)
[2021-03-02] MEDS: Citalopram 20 MG TAB 40 MG PO (22:02)
[2021-03-03] VITALS (12 sets, daily range): BP systolic 98–128; BP diastolic 54–72; PULSE 57–70; RESP 18–24; TEMP 36.2–36.8; O2SAT 91–98
[2021-03-03] MEDS: DOXYCYCLINE 100 MG in Normal Saline 100 ML IVPB ×2 (06:00→17:17)
[2021-03-03] MEDS: Normal Saline Flush 10 ML SYR IVP ×2 (06:45→17:17)
[2021-03-03 07:22] LABS: Abs Immature Grans 0.13 10^3/uL (0.0-0.06); Absolute Basophil Count 0.01 10^3/uL (0.0-0.2); Absolute Lymphocyte Count 1.34 10^3/uL (1.2-3.4); Absolute Monocyte Count 0.29 10^3/uL (0.1-0.8); Absolute Neutrophil Count 3.11 10^3/uL (1.2-6.7); Basophils % 0.2; HCT 38.2 % (40.0-50.0); HGB 12.5 g/dL (13.5-17.5); Immature Grans % 2.7; Lymphocytes % 27.5; MCH 28.7 pg (27.0-33.0); MCHC 32.7 % (32.0-36.0); MCV 87.6 fL (80-95); MPV 8.8 fL (8.0-11.0); Monocytes % 5.9; Neutrophils % 63.7; Nucleated RBC 0 %; Platelet Count 257 10^3/uL (130-400); RBC 4.36 10^6/uL (4.36-5.78); RDW 13.2 % (11.8-14.1); RDW-SD 42.5 fL; WBC 4.88 10^3/uL (4.4-10.8)
[2021-03-03 07:40] LABS: ALT 75 U/L (16-63); AST 50 U/L (15-37); Albumin 3.3 g/dL (3.4-5.0); Alkaline Phosphatase 88 U/L (46-116); BUN 20 mg/dL (7-18); Bilirubin, Direct 0.1 mg/dL (0.0-0.2); Bilirubin, Total 0.4 mg/dL (0.2-1.0); C-Reactive Protein 0.41 mg/dL (0.0-0.3); Calcium 8.5 mg/dL (8.5-10.1); Chloride 111 mmol/L (98-107); Glucose 152 mg/dL (74-106); Magnesium 1.9 mg/dL (1.8-2.4); Potassium 3.9 mmol/L (3.5-5.1); Sodium 146 mmol/L (136-145); Total Protein 7.2 g/dL (6.4-8.2)
[2021-03-03 08:00] LABS: D-Dimer 367 ng/mlFEU (<500)
[2021-03-03 08:06] LABS: Ferritin 574 ng/mL (26-388)
[2021-03-03] MEDS: Ipratropium/Albuterol 4 GM 120 PUFF INH IH ×4 (08:18→20:38)
[2021-03-03] MEDS: Budesonide/Formoterol 160/4.5 6 GM 60 PUFF INH IH ×2 (08:19→20:37)
[2021-03-03] MEDS: Insulin Aspart 300 UNITS/3 ML PEN SC ×4 (08:53→21:33)
[2021-03-03] MEDS: Ascorbic Acid 500 MG TAB 1000 MG PO ×2 (08:54→20:39)
[2021-03-03] MEDS: Meloxicam 15 MG TAB PO (08:54)
[2021-03-03] MEDS: Famotidine 20 MG TAB PO ×2 (08:54→20:40)
[2021-03-03] MEDS: buPROPion-XL 150 MG TABCR 300 MG PO (08:54)
[2021-03-03] MEDS: Dexamethasone 4 MG TAB 6 MG PO (08:54)
[2021-03-03] MEDS: Cholecalciferol (Vitamin D3) 1,000 UNIT TAB 2000 UNITS PO (08:54)
[2021-03-03] MEDS: Benzonatate 200 MG CAP PO ×3 (08:54→20:40)
[2021-03-03] MEDS: Zinc Sulfate 220 MG TAB PO (08:54)
--- NOTE | 2021-03-03 11:40 | CMPROGNOTE_ITS ---
- If Service Date Differs Date of service: 03/03/21 Time of Service: 11:40 Care Management Progress Note S/O: Awais continues to be monitored under Covid 19 precautions. CM spoke to Awais over the phone today, who reported that he is feeling better today. Per report, his O2 requirements are decreasing, and he is currently on 2L. He requested a wood search book as he is bored in his room, which CM will provide. He reported that he is independent and does not feel that he will require any services upon discharge. CM will continue to follow. A: Awais is a 50 year old male admitted to [facility] on 02/28/21 with Covid. P: Awais is being closely monitored at this time. Once he is medically cleared he will return home via [facility], due to his Covid status. He will follow up with his PCP and discharge plan of care. CM will continue to follow.
[2021-03-03] MEDS: Enoxaparin 60 MG/0.6 ML SYR SC ×2 (12:09→21:31)
--- NOTE | 2021-03-03 17:57 | PGE_ITS ---
Date of Service Date of service: 03/03/21 Time of Service: 17:59 Assessment and Plan Assessment and plan (1) COVID-19: Status: Acute Assessment and plan: Causing pneumonia and acute hypoxic respiratory failure. Improving. S/p tocilizumab 03/02/21. Continue decadron, remdesivir, vitamin C, D, zinc, atorvastatin, pepcid, melatonin. Conitnue proning. Continue empiric abx. Continue intermediate dose lovenox. (2) Acute respiratory failure with hypoxia: Status: Acute Assessment and plan: As above Provide CPAP (on it at home) at night. Wean O2 as tolerated (3) Obstructive sleep apnea: Status: Chronic Assessment and plan: CPAP at night (4) Type 2 diabetes mellitus: Status: Chronic Assessment and plan: Continue SSI Qualifiers: Diabetes mellitus mcc insulin use: with long term acute care registered nurse use Diabetes mellitus complication status: without complication Qualified Code(s): E11.9 - Type 2 diabetes mellitus without complications; Z79.4 - retirement (current) use of insulin (5) DVT prophylaxis: Status: Acute Assessment and plan: lovenox 60 mg SC Q12H (6) Discharge planning issues: Status: Acute Assessment and plan: Full code Continues to require hospitalization. Possible discharge home in the next 24-48 hrs Subjective Subjective Interval history since last seen: Today's encounter was done over the phone as the patient is improving. His O2 requirement today is 2L. He denies dizziness, chest pain, shortness of breath, nausea. His diarrhea has stopped. He is asking how long it will be before he can go home. He has been proning and working with IS. Exam Narrative Exam Narrative: In person physical exam deferred - patient was interviewed on the phone. General: Speaking comfortably in complete sentences without dyspnea, A&Ox3, appropriate speech pattern/content Objective Last Vital Signs Temp 36.2 C L 03/03/21 15:16 Pulse 64 03/03/21 15:16 Resp 18 03/03/21 15:16 BP 105/66 03/03/21 15:16 Pulse Ox 92 03/03/21 15:16 Laboratory Results - last 24 hr 03/03/21 03/03/21 03/03/21 07:06 07:06 07:06 WBC 4.88 RBC 4.36 Hgb 12.5 L Hct 38.2 L MCV 87.6 MCH 28.7 MCHC 32.7 RDW 13.2 Plt Count 257 MPV 8.8 Immature Gran % 2.7 Neutrophils % 63.7 Lymphocytes % 27.5 Monocytes % 5.9 Eosinophils % 0.0 Basophils % 0.2 Nucleated RBC % 0 Absolute Neutrophils 3.11 Absolute Lymphocytes 1.34 Absolute Monocytes 0.29 Absolute Eosinophils 0.00 Absolute Basophils 0.01 D-Dimer 367 Sodium 146 H Potassium 3.9 Chloride 111 H Carbon Dioxide 26.0 Anion Gap 9.0 BUN 20 H Creatinine 1.0 Estimated GFR/1.73 m2 >= 60.00 Glucose 152 H Calcium 8.5 Magnesium 1.9 Ferritin 574 H Total Bilirubin 0.4 Conjugated Bilirubin 0.1 AST 50 H ALT 75 H Alkaline Phosphatase 88 C-Reactive Protein 0.41 H Total Protein 7.2 Albumin 3.3 L
[2021-03-03] MEDS: cefTRIAXone 1 GM/50 ML BAG IVPB (20:38)
[2021-03-03] MEDS: Atorvastatin 40 MG TAB PO (20:39)
[2021-03-03] MEDS: Melatonin 3 MG TAB PO (21:31)
[2021-03-03] MEDS: Citalopram 20 MG TAB 40 MG PO (21:32)
[2021-03-03] MEDS: Aspirin E.C. 81 MG TABEC PO (21:33)
[2021-03-04] VITALS (14 sets, daily range): BP systolic 112–141; BP diastolic 64–77; PULSE 56–71; RESP 16–19; TEMP 35.8–36.2; O2SAT 90–96
[2021-03-04] MEDS: DOXYCYCLINE 100 MG in Normal Saline 100 ML IVPB ×2 (04:00→17:18)
[2021-03-04] MEDS: Normal Saline 500 ML 30 ML IV (04:01)
[2021-03-04] MEDS: Cholecalciferol (Vitamin D3) 1,000 UNIT TAB 2000 UNITS PO (08:49)
[2021-03-04] MEDS: buPROPion-XL 150 MG TABCR 300 MG PO (08:50)
[2021-03-04] MEDS: Benzonatate 200 MG CAP PO ×3 (08:50→20:03)
[2021-03-04] MEDS: Meloxicam 15 MG TAB PO (08:50)
[2021-03-04] MEDS: Ascorbic Acid 500 MG TAB 1000 MG PO ×2 (08:50→20:02)
[2021-03-04] MEDS: Dexamethasone 4 MG TAB 6 MG PO (08:50)
[2021-03-04] MEDS: Zinc Sulfate 220 MG TAB PO (08:50)
[2021-03-04] MEDS: Insulin Aspart 300 UNITS/3 ML PEN SC ×4 (08:50→23:33)
[2021-03-04] MEDS: Famotidine 20 MG TAB PO ×2 (08:50→20:03)
[2021-03-04] MEDS: Budesonide/Formoterol 160/4.5 6 GM 60 PUFF INH IH ×2 (09:36→20:03)
[2021-03-04] MEDS: Ipratropium/Albuterol 4 GM 120 PUFF INH IH ×4 (09:36→20:03)
[2021-03-04] MEDS: Enoxaparin 60 MG/0.6 ML SYR SC ×2 (10:54→23:34)
--- NOTE | 2021-03-04 15:10 | W.PM.PROGNOT ---
Date of Service Date of service: 03/04/21 Time of Service: 11:00 Assessment and Plan Assessment and plan (1) COVID-19: Start date: 03/04/21 Start time: 11:00 Status: Acute Assessment and plan: Causing pneumonia and acute hypoxic respiratory failure. Improving on 1 L weaning off to RA. S/p tocilizumab 03/02/21. Continue decadron, remdesivir, vitamin C, D, zinc, atorvastatin, pepcid, melatonin. Conitnue proning and moving around Continue empiric abx. Continue intermediate dose lovenox. (2) Acute respiratory failure with hypoxia: Start date: 03/04/21 Start time: 11:00 Status: Acute Assessment and plan: As above Provide CPAP (on it at home) at night. Wean O2 as tolerated (3) Obstructive sleep apnea: Start date: 03/04/21 Start time: 11:00 Status: Chronic Assessment and plan: CPAP at night (4) Type 2 diabetes mellitus: Start date: 03/04/21 Start time: 11:00 Status: Chronic Assessment and plan: Continue SSI Qualifiers: Diabetes mellitus retirement insulin use: with petroleum terminal plant operator use Diabetes mellitus complication status: without complication Qualified Code(s): E11.9 - Type 2 diabetes mellitus without complications; Z79.4 - terminal makeup operator (current) use of insulin (5) DVT prophylaxis: Start date: 03/04/21 Start time: 11:00 Status: Acute Assessment and plan: lovenox 60 mg SC Q12H (6) Discharge planning issues: Start date: 03/04/21 Start time: 11:00 Status: Acute Assessment and plan: Full code Continues to require hospitalization. Discharge home possibly in am. discussed with Dr. Anderson Subjective Subjective Patient reports: feels better Interval history since last seen: Doing much better. Requiring 1 liter of oxgyen. He continues to move around and prone. He gets OOB LSC. He will likely be discharged tomorrow. He denies CP, SOB, N/v/D Exam Narrative Exam Narrative: Exam Narrative: General: Pleasant middle-aged male who is sitting up in bed, A&ox3, no respiratory distress HEENT: EOMI, MMM Heart: RRR no murmur or ectopic beats Lungs: CTAB anteriorly and posteriorly Abdomen: soft nontender, bs x 4 quads Extremities:no edema BLE's Objective Last Vital Signs Temp 36.2 C L 03/04/21 12:12 Pulse 60 03/04/21 12:12 Resp 16 03/04/21 12:12 BP 112/64 03/04/21 12:12 Pulse Ox 93 03/04/21 12:12
--- NOTE | 2021-03-04 16:16 | PDOC.CMPRO ---
- If Service Date Differs Date of service: 03/04/21 Time of Service: 16:16 Care Management Progress Note S/O: Awais continues to be monitored on Covid 19 precautions. CM talked to him over the phone about his discharge plan. He reported that he is concerned about housing, because he can no longer stay at his daughter's house. He reported that he has an apartment that is ready for him to move in, but he needs to talk to the landlord first. He stated that he may need help moving. His children are supportive. CM recommended that he call [phone] if he does not have housing upon discharge. CM explained that this cannot be set up ahead of time, as it is for emergency housing only, and he would have to call. Per report, he is now on 1L O2 and improving. CM will continue to follow. A: Awais is a 50 year old male admitted to [facility] on 02/28/21 with Covid. P: Awais is being closely monitored at this time. Once he is medically cleared he will return home via [facility], due to his Covid status. He will follow up with his PCP and discharge plan of care. CM will continue to follow.
[2021-03-04] MEDS: Normal Saline Flush 10 ML SYR IVP (17:17)
[2021-03-04] MEDS: cefTRIAXone 1 GM/50 ML BAG IVPB (20:02)
[2021-03-04] MEDS: Atorvastatin 40 MG TAB PO (20:02)
[2021-03-04] MEDS: Citalopram 20 MG TAB 40 MG PO (23:35)
[2021-03-04] MEDS: Melatonin 3 MG TAB PO (23:35)
[2021-03-04] MEDS: Aspirin E.C. 81 MG TABEC PO (23:35)
[2021-03-05 03:24] VITALS: BP 133/79; PULSE 56; RESP 16; TEMP 36; O2SAT 91
[2021-03-05 06:33] VITALS: BP 131/75; PULSE 56; RESP 18; TEMP 36.5; O2SAT 92
[2021-03-05] MEDS: DOXYCYCLINE 100 MG in Normal Saline 100 ML IVPB (06:34)
[2021-03-05] MEDS: Zinc Sulfate 220 MG TAB PO (07:32)
[2021-03-05] MEDS: Cholecalciferol (Vitamin D3) 1,000 UNIT TAB 2000 UNITS PO (07:32)
[2021-03-05] MEDS: Benzonatate 200 MG CAP PO (07:32)
[2021-03-05] MEDS: buPROPion-XL 150 MG TABCR 300 MG PO (07:32)
[2021-03-05] MEDS: Famotidine 20 MG TAB PO (07:32)
[2021-03-05] MEDS: Meloxicam 15 MG TAB PO (07:33)
[2021-03-05] MEDS: Dexamethasone 4 MG TAB 6 MG PO (07:33)
[2021-03-05] MEDS: Ascorbic Acid 500 MG TAB 1000 MG PO (07:33)
[2021-03-05] MEDS: Insulin Aspart 300 UNITS/3 ML PEN SC ×2 (08:09→12:21)
[2021-03-05] MEDS: Enoxaparin 60 MG/0.6 ML SYR SC (09:45)
[2021-03-05] MEDS: Budesonide/Formoterol 160/4.5 6 GM 60 PUFF INH IH (10:26)
[2021-03-05] MEDS: Ipratropium/Albuterol 4 GM 120 PUFF INH IH (10:26)
[2021-03-05 11:35] VITALS: BP 126/72; PULSE 82; RESP 17; TEMP 36.8; O2SAT 89
--- NOTE | 2021-03-05 12:40 | DSE_ITS ---
Date of service: 03/05/21 Time of Service: 12:40 DS: Diagnosis Discharge Diagnosis (1) COVID-19: Start date: 03/05/21 Start time: 12:40 Status: Acute Asessment and Plan: Doing well. Off oxygen. This did cause pneumonia with acute resp failure with hypoxia, he was treated S/p tocilizumab 5. decadron, remdesivir, vitamin C, D, zinc, atorvastatin, pepcid, melatonin. proning and moving around empiric abx. intermediate dose lovenox. Today he is off oxygen, ambulating around with RT maintaining saturation above 94%. Doing well. He is ready to be discharged. Will continue cefpodoxime and doxy for total 10 day course Continue to ambulate and continue vitamin c, and d. (2) Acute respiratory failure with hypoxia: Start date: 03/05/21 Start time: 12:44 Status: Resolved Asessment and Plan: as above (3) Obstructive sleep apnea: Start date: 03/05/21 Start time: 12:44 Status: Chronic Asessment and Plan: continue bipap (4) Type 2 diabetes mellitus: Start date: 03/05/21 Start time: 12:44 Status: Chronic Asessment and Plan: Continue home regimen Discharge Plan Disposition Patient Disposition: HOME Condition: Improving Discharge Details Reason For Visit: COVID Admit Date/Time: 02/28/21 18:56 Admit Provider: Noé Love Attending Provider: Noé Love Primary Care Provider: [facility] Course Hospital Course: 50 y.o male with PMH of IDDM, Back pain, GERD, TERESSA on cpap, presented to [facility] after jude COVID from partner. He reported 6 days of fever, diarrhea, loss of taste, with cough. He was hypoxic with saturation in 80's, temp 39.3, D- dimer elevated, LDH ferritin and TA also elevated. CT revealed bilateral opacities. He was admitted to [facility] on telemetry for further management. He was placed on remdesiver, ceftriaxone, doxy, decadron. He was started on tr eatment for pneumonia, ceftriaxone and doxy. He never required greater than 4 L of oxygen. He did proning, ambulation and OOB to chair. He is feeling better. Today his is off oxygen. Ambulated by RT he was able to maintain RA above 94%, he states he feels great and is anxious to get discharged to secure housing. He will continue antibx for an additional 5 days for total 10 day course for Covid pneumonia. He denies CP, SOB, N/V/D. Home Meds and New Rx's Prescriptions: New ascorbic acid (vitamin C) [Vitamin C] 500 mg Tablet 1,000 mg PO BID Qty: 60 RF: 0 atorvastatin 40 mg Tablet 40 mg PO QPM Qty: 30 RF: 0 benzonatate 200 mg Capsule 200 mg PO TID Qty: 20 RF: 0 cefpodoxime 200 mg tablet 200 mg PO BID Qty: 9 RF: 0 cholecalciferol (vitamin D3) 25 mcg (1,000 unit) Tablet 2,000 units PO DAILY Qty: 30 RF: 0 doxycycline hyclate 100 mg tablet 100 mg PO BID Qty: 9 RF: 0 Continued ibuprofen 600 mg tablet 600 mg PO TID PRN (Reason: pain) Qty: 60 RF: 0 fluticasone propion-salmeterol [Advair Diskus] 500-50 mcg/dose blister with d evice 1 inh inhalation BID Qty: 3 RF: 3 meloxicam 15 mg tablet 15 mg PO DAILY Qty: 30 RF: 3 diclofenac sodium [Voltaren] 1 % gel 2 - 4 g topical QID PRN (Reason: pain) Qty: 100 RF: 3 bupropion HCl [Wellbutrin XL] 300 mg tablet extended release 24 hr 300 mg PO DAILY Qty: 90 RF: 3 Lantus Solostar U-100 Insulin 100 unit/mL (3 mL) insulin pen 18 unit subcut DAILY Qty: 18 RF: 3 nystatin 15 GM cream 15 gm Topical PRN RF: 0 albuterol sulfate 90 mcg/actuation HFA aerosol inhaler 1 - 2 puff IH Q4H PRN (Reason: shortness of breath or wheezing) Qty: 1 RF: 3 pantoprazole 40 mg tablet,delayed release (DR/EC) 40 mg PO QAM Qty: 90 RF: 3 metformin 1,000 mg tablet 1,000 mg PO BID Qty: 180 RF: 3 simvastatin 40 mg tablet 40 mg PO QPM Qty: 90 RF: 3 Victoza 2-Markus 0.6 mg/0.1 mL (18 mg/3 mL) pen injector 0.6 mg SC DAILY Qty: 3 RF: 3 citalopram 40 mg tablet 40 mg PO HS Qty: 90 RF: 3 hydroxyzine HCl 50 mg tablet 50 mg PO BID PRN (Reason: anxiety) Qty: 180 RF: 0 aspirin [Aspir-Low] 81 mg Tablet,Delayed Release (Dr/Ec) 81 mg PO HS RF: 0 multivitamin Capsule 1 cap PO HS RF: 0 No Action (DME) blood-glucose meter Misc See Rx Instructions .ROUTE .MEDSUPPLY Qty: 1 RF: 0 (DME) pen needle, diabetic [BD Ultra-Fine Anisha Pen Needle] 32 gauge x 5/32 needle See Rx Instructions .ROUTE .MEDSUPPLY Qty: 200 RF: 3 (DME) lancets Misc See Rx Instructions .ROUTE .MEDSUPPLY Qty: 200 RF: 3 (DME) Blood Glucose Test Strip See Rx Instructions .ROUTE .MEDSUPPLY Qty: 200 RF: 3 Discharge Instructions Instructions: COVID-19 (Coronavirus Disease 2019) (DC), COVID-19 and Chronic Health Conditions (DC), COVID-19 Patient Family Discharge Instructions Additional Instructions: You can get your vaccine once symptoms subside Continue to ambulate and get out of bed Continue to take antibiotics vitamin D and C Follow up with PCP as needed make appointment yourself for follow Stand Alone Forms: Nursing Discharge Form Activity:: Activity as Tolerated Equipment/Supplies:: No Equipment Needed Diet:: Carb Counting Discharge Orders Discharge Orders: Discharge Order (Routine); Ordered 03/05/21 Ordered By: Laura Gutierrez DS: Summary Time Spent with Patient providing and/or coordinating discharge services: Less than 30 minutes (approx 25 mins spent discharging) Status at Discharge Functional status at discharge: independent ambulation Overall status at discharge: patient is progressing back to baseline Mental Status: mental status grossly normal Speech and Movement: speech and movement normal Mood: congruent mood Affect: normal affect Exam Narrative Exam Narrative: Exam Narrative: General: Sitting up in bed, seen through camera HEENT: EOMI, MMM Heart: RRR no murmur or ectopic beats Lungs: CTAB anteriorly and posteriorly per RT Abdomen: not assessed Extremities:no edema BLE's Psych Mental Status: mental status grossly normal Speech and Movement: speech and movement normal Mood: congruent mood Affect: normal affect DS: Data Vitals/I&O Vitals and I&O: Vital Signs Temperature 36.5 C 03/05/21 06:33 Temperature Source Tympanic 03/05/21 06:33 Pulse 56 L 03/05/21 06:33 Pulse Rhythm Regular 03/05/21 03:00 Pulse 66 03/04/21 09:40 Respiratory Rate 18 03/05/21 06:33 Respiratory Effort Non-Labored 03/05/21 03:00 Respiratory Depth Normal 03/05/21 03:00 Respiratory Pattern Normal 03/05/21 03:00 Blood Pressure 131/75 03/05/21 06:33 Blood Pressure Mean 89 02/28/21 19:16 Blood Pressure Position Supine 02/28/21 14:01 Pulse Oximetry 92 03/05/21 06:33 Oxygen Delivery Method Cpap 03/05/21 06:33 Oxygen Flow Rate 2 03/05/21 06:33 Pain Level 0 03/05/21 07:31 Comment 03/05/21 07:31 Intake & Output 03/04/21 03/05/21 03/05/21 23:59 11:59 23:59 Intake Total 1091 / 1671.5 1208 / 1208 Balance 1091 / 1671.5 1208 / 1208 Intake: IV 131 / 231.5 118 / 118 Oral 960 / 1440 1090 / 1090 Other: Comment Per pt. report, void x1 in the toilet. Patient uses bathroom to void independently. Patient has voided multiple times this shift. Stool Characteristics Formed Brown Voiding Methods Toilet Toilet Data Completed and Pending Completed studies during hospitalization [Text1]: Exam(s) a CT:CT chest PE CTA Exam(s) CT CHEST PE CTA EXAM: ? CT CHEST PE CTA CLINICAL HISTORY: ? Covid positive, SOB. ? TECHNIQUE:? Imaging Protocol: CT angiography of the chest was performed using pulmonary embolus protocol.? Multi planar reconstructions were performed. CONTRAST MATERIAL:? Intravenous: Omnipaque 350 Contrast volume: 100 cc COMPARISON:? CT CT ABDOMEN ? PELVIS W from 01/25/2019 FINDINGS: CHEST: PULMONARY ARTERIES: There are no intraluminal filling defects to suggest acute pulmonary emboli. LUNGS: There are multiple prominent areas of patchy and confluent infiltrates throughout both lungs involving all lobes, not associated with pleural effusions. There are no focal findings in the trachea and mainstem bronchi.? MEDIASTINUM: No hilar nor mediastinal adenopathy visualized thyroid unremarkable. CARDIAC: Heart size is upper normal.? There is no pericardial effusion.Caliber of the thoracic aorta is within normal limits. No evidence of aortic dissection.? There is no significant shift of the interventricular septum. PARTIALLY VISUALIZED UPPERMOST ABDOMEN: Hepatic steatosis noted. OSSEOUS: No significant osseous lesions.. IMPRESSION: 1. No evidence of acute pulmonary emboli.? No evidence of pulmonary infarction. 2. However, there are extensive bilateral infiltrates involving all lobes of both lungs.? No associated pleural effusions.? No obvious adenopathy.? Recommend Covid-19 testing 3. Hepatic steatosis noted Exam(s) PROCEDURE INFORMATION: Exam: CTA Chest With Contrast Exam date and time: 02/28/2021 4:00 PM Age: 50 years old Clinical indication: Shortness of breath; Patient HX: Covid +, SOB TECHNIQUE: Imaging protocol: Computed tomographic angiography of the chest with contrast. 3D rendering (Not supervised by radiologist): MIP and/or 3D reconstructed images were created by the technologist. COMPARISON: No relevant prior studies available. FINDINGS: Pulmonary arteries: There is no evidence of pulmonary embolus. Aorta: The aorta is within normal limits. Thyroid: The thyroid gland is within normal limits. Lungs: There are multifocal multi lobar areas of ground-glass opacification and infiltrates. Pleural spaces: Unremarkable. No pneumothorax. No pleural effusion. Heart: The heart and pericardium are within normal limits. Lymph nodes:? ? No enlarged lymph nodes. Bones/joints: There are degenerative changes of the thoracic spine. Soft tissues: Unremarkable. IMPRESSION: 1. No evidence of pulmonary embolus. 2. Multifocal multi lobar areas of ground-glass opacification and infiltrates.Commonly reported imaging features of COVID-19 pneumonia are present. Other processes such as influenza pneumonia and organizing pneumonia, as can be seen with drug toxicity and connective tissue disease, can cause a similar imaging pattern. (Reference: Helder). 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 Sleep Service [facility] Pancreatitis (01/23/18) Right hip pain Seborrheic dermatitis Suicide attempt Tobacco use disorder QUIT 03/2018 Type 2 diabetes mellitus (~10/2019) Surgical History EGD (~09/2019) 2010 Duodenitis, gastritis Extraction of cataract removal, insert prosthetic lens (10/19/2015):Left removal, insert prosthetic lens (06/23/2014):Right hand surgery (1993) History of colonoscopy (~10/09/19) Family History Mother Depression Heart disease Hypertension Anxiety Father Heart disease Stroke Sister Alzheimers disease Breast cancer Diabetes Social History Smoking/Tobacco Use Status: Former Tobacco Use tobacco type: cigarettes Quit Date: 10/22/17 Pack-years: 120 Smoking risk assessment performed?: Yes Alcohol Intake: never Drug use: Never Substance use type: does not use Caregiver/Support person: No Housing: apartment Number of Children: 3 Communication Needs: None Pets and animals: Yes Pets and animals: cat(s), dog(s), snake(s) and other Details: lizard Do you think of yourself as: straight/heterosexual Current gender identity: male What is your relationship status?: How often do you talk on the phone with friends or family?: three or more times per week How often do you get together with friends or relatives?: three or more times per week How often do you attend gnosticist or confucianism services?: decline to answer Do you belong to any clubs or organized social groups?: no Panel score (0-1 are the most socially isolated patients): 1 What type of physical activity do you participate in: none Duration: 15-30 minutes/day Frequency: 5-6 times per week Special maxime needs: No Seatbelt use: always Helmet use: Yes Drive intox or ride w/intox delivery driver/supervisor: No Do you feel safe at home: Yes Do you feel safe in your relationship?: Yes
--- NOTE | 2021-03-05 14:04 | CMDISCH_ITS ---
- If Service Date Differs Date of service: 03/05/21 Time of Service: 14:04 LACE Index Scoring Tool - Questions: Length of Stay (in days): 4 - 6 Acuity (Admit via E.D.?): Yes Comorbidities: Diabetes w/o Complication, Chronic Pulmonary Disease E.D. Visits: 1 - Answers: Total Score: 11 Risk of Readmission: High Risk Care Management Discharge Reason for Hospitalization: Covid 19 + Discharge Plan: Awais will be discharged home with no new services. He will follow up with his community providrs and transport via [facility] coordinated by CM. Patient/Family Education Needs: Review discharge instructions regarding activity levels, medications and oxygen needs, discussion of self care needs including ask me three.
== END 2021-03-05 13:41 | disposition home or self-care (01) | DRG 177 ==
LOC: ER 19:24 → MS 19:41
PROVIDERS: Internal Medicine; Registered Nurse Emergency; Admitting Provider General Practice; Emergency Provider Physician Assistant; PCP Nurse Practitioner Family; Visit Provider General Practice
DX: U07.1 COVID-19 (principal); J96.01 Acute respiratory failure with hypoxia; J12.82 Pneumonia due to coronavirus disease 2019; J44.0 Chronic obstructive pulmonary disease with (acute) lower respiratory infection; G47.33 Obstructive sleep apnea (adult) (pediatric); E11.9 Type 2 diabetes mellitus without complications; Z79.4 Long term (current) use of insulin; F41.8 Other specified anxiety disorders; G89.29 Other chronic pain; M54.9 Dorsalgia, unspecified; K21.9 Gastro-esophageal reflux disease without esophagitis; M15.9 Polyosteoarthritis, unspecified; K76.0 Fatty (change of) liver, not elsewhere classified; E78.5 Hyperlipidemia, unspecified; Z87.891 Personal history of nicotine dependence
CPT/HCPCS: 36415; 71275; 80048; 80053; 80076; 82550; 82805; 84145; 87040; 93005; 94640; 96365; 96375; 99285; 82728; 83605; 83615; 83735; 84484; 85025; 85379; 86140; 93010; 94660; 94667; 94668; 99222; 99231; 99232; 99238; J0131; J0696; J1100; J1644; J1650; J3490; J8540

== ENCOUNTER 2021-05-26 10:30 | Outpatient (CLI) | payer MEDICAID, SELFPAY ==
--- NOTE | 2021-05-26 10:15 | DI.RAD_ITS ---
Exam(s) XR FOOT RT COMPLETE EXAM: XR FOOT RT COMPLETE CLINICAL HISTORY: Acute onset pain s/p stepping injury korey paredes M79.671 PAIN RT FOOT. TECHNIQUE: 2D digital imaging was performed. COMPARISON: CR RIGHT KNEE 3 VIEWS from 02/07/2018 CR XR HEEL RT OS CALCIS from 05/04/2020 CR XR HEEL RT OS CALCIS from 05/04/2020 FINDINGS: There is no evidence of acute fracture or diastasis of the Lisfranc joint. The more lateral of the 2 sesamoid subjacent to the 1st metatarsal head is bipartite. Multiple accessory ossicles are noted l ateral to the cuboid bone, similar to previous. Prominent calcific density is again noted posteriorl y at the insertion site of the Achilles on the posterior calcaneus. There is no prominent inferior c alcaneal spur nor calcification within the plantar fascia. No evidence of pes planus. No osseous ta rsal coalition. No significant osseous lesions. IMPRESSION: DATA REPOSITORY: RADIATION DOSE DELIVERED:
== END 2021-05-26 10:50 ==
PROVIDERS: PCP Nurse Practitioner Family; Visit Provider Nurse Practitioner Family
DX: G89.11 Acute pain due to trauma (principal); M79.671 Pain in right foot; X50.1XXA Overexertion from prolonged static or awkward postures, initial encounter
CPT/HCPCS: 73630

== ENCOUNTER 2021-12-14 01:53 | Outpatient (CLI) | payer MEDICAID, SELFPAY | END 2021-12-14 01:54 | disposition home or self-care (01) | LOC: LBO 01:53 | PROVIDERS: PCP Nurse Practitioner Family; Visit Provider Nurse Practitioner Family ==

== ENCOUNTER 2022-02-28 01:53 | Outpatient (CLI) | payer MEDICAID, SELFPAY ==
[2022-02-28 13:08] LABS: Abs Immature Grans 0.02 10^3/uL (0.0-0.06); Absolute Basophil Count 0.07 10^3/uL (0.0-0.2); Absolute Eosinophil Count 0.17 10^3/uL (0.0-0.7); Absolute Monocyte Count 0.47 10^3/uL (0.1-0.8); Absolute Neutrophil Count 4.31 10^3/uL (1.2-6.7); Basophils % 0.9; Eosinophils % 2.2; HCT 44.5 % (40.0-50.0); HGB 13.9 g/dL (13.5-17.5); Immature Grans % 0.3; Lymphocytes % 34.9; MCH 27.2 pg (27.0-33.0); MCHC 31.2 % (32.0-36.0); MCV 87 fL (80-95); MPV 8.8 fL (8.0-11.0); Monocytes % 6.1; Neutrophils % 55.6; Platelet Count 258 10^3/uL (130-400); RBC 5.11 10^6/uL (4.36-5.78); RDW 13.1 % (11.8-14.1); RDW-SD 41.5 fL; WBC 7.74 10^3/uL (4.4-10.8)
[2022-02-28 13:18] LABS: Prothrombin Time 9.9 sec (9.3-11.0)
[2022-02-28 13:34] LABS: Hemoglobin A1C 8.5 % (<5.7)
[2022-02-28 14:48] LABS: ALT 109 U/L (16-63); AST 83 U/L (15-37); Albumin 4.3 g/dL (3.4-5.0); Alkaline Phosphatase 176 U/L (46-116); Anion Gap 14.2 mmol/L (3-11); BUN 15 mg/dL (7-18); Bilirubin, Total 0.3 mg/dL (0.2-1.0); CO2 24.8 mmol/L (21.0-32.0); CREATININE 1.2 mg/dL (0.70-1.30); Calcium 9.4 mg/dL (8.5-10.1); Calculated LDL 69 mg/dL (<100); Chloride 106 mmol/L (98-107); Cholesterol 159 mg/dL (<200); Glucose 158 mg/dL (74-106); HDL Cholesterol 39 mg/dL (40-60); Potassium 4.5 mmol/L (3.5-5.1); Sodium 145 mmol/L (136-145); Total Protein 8.1 g/dL (6.4-8.2); Triglyceride 259 mg/dL (<150)
== END 2022-02-28 01:54 | disposition home or self-care (01) ==
LOC: LBO 01:53
PROVIDERS: PCP Nurse Practitioner Family; Visit Provider Nurse Practitioner Family
DX: E78.5 Hyperlipidemia, unspecified (principal); K76.0 Fatty (change of) liver, not elsewhere classified; E11.9 Type 2 diabetes mellitus without complications; Z79.4 Long term (current) use of insulin
CPT/HCPCS: 36415; 80053; 80061; 83036; 85025; 85610

== ENCOUNTER 2022-08-17 15:19 | Outpatient (REF) | payer MEDICAID, SELFPAY ==
[2022-08-17 15:54] LABS: COMMENT (LAB VIEW ONLY) 154.91 mg/dL
== END 2022-08-17 15:20 | disposition home or self-care (01) ==
LOC: LBN 15:19
PROVIDERS: PCP Nurse Practitioner Family; Visit Provider Nurse Practitioner Family
DX: E11.9 Type 2 diabetes mellitus without complications (principal)
CPT/HCPCS: 82043; 82570

== ENCOUNTER 2023-03-23 02:12 | Outpatient (CLI) | payer MEDICAID, SELFPAY ==
[2023-03-23 11:29] LABS: Absolute Basophil Count 0.05 10^3/uL (0.0-0.2); Absolute Lymphocyte Count 2.07 10^3/uL (1.2-3.4); Absolute Monocyte Count 0.35 10^3/uL (0.1-0.8); Basophils % 0.9; Eosinophils % 1.7; HCT 38.6 % (40.0-50.0); HGB 12.6 g/dL (13.5-17.5); Lymphocytes % 35.9; MCH 28.4 pg (27.0-33.0); MCHC 32.6 % (32.0-36.0); MCV 87 fL (80-95); MPV 8.6 fL (8.0-11.0); Monocytes % 6.1; Neutrophils % 55.4; Platelet Count 183 10^3/uL (130-400); RBC 4.43 10^6/uL (4.36-5.78); RDW 13.2 % (11.8-14.1); RDW-SD 42.2 fL; WBC 5.77 10^3/uL (4.4-10.8)
[2023-03-23 12:24] LABS: ALT 94 U/L (16-63); AST 61 U/L (15-37); Alkaline Phosphatase 157 U/L (46-116); Anion Gap 8.3 mmol/L (3-11); BUN 13 mg/dL (7-18); Bilirubin, Total 0.4 mg/dL (0.2-1.0); CO2 25.7 mmol/L (21.0-32.0); CREATININE 0.9 mg/dL (0.70-1.30); Calculated LDL 85 mg/dL (<100); Chloride 109 mmol/L (98-107); Cholesterol 153 mg/dL (<200); Estimated GFR 101.49 (mL/min/1.73m2); Glucose 188 mg/dL (74-106); HDL Cholesterol 42 mg/dL (40-60); Potassium 4.5 mmol/L (3.5-5.1); Sodium 143 mmol/L (136-145); Total Protein 7.9 g/dL (6.4-8.2); Triglyceride 134 mg/dL (<150)
[2023-03-23 12:25] LABS: Hemoglobin A1C 7.4 % (<5.7)
== END 2023-03-23 02:13 | disposition home or self-care (01) ==
LOC: LBO 02:13
PROVIDERS: PCP Nurse Practitioner Family; Visit Provider Nurse Practitioner Family
DX: E11.9 Type 2 diabetes mellitus without complications (principal); E78.5 Hyperlipidemia, unspecified; K76.0 Fatty (change of) liver, not elsewhere classified; Z79.4 Long term (current) use of insulin; Z51.81 Encounter for therapeutic drug level monitoring
CPT/HCPCS: 36415; 80053; 80061; 83036; 85025

== ENCOUNTER 2023-07-11 03:57 | Outpatient (CLI) | payer MEDICAID, SELFPAY ==
[2023-07-11 09:00] LABS: Abs Immature Grans 0.03 10^3/uL (0.0-0.06); Absolute Basophil Count 0.08 10^3/uL (0.0-0.2); Absolute Eosinophil Count 0.17 10^3/uL (0.0-0.7); Absolute Lymphocyte Count 3.07 10^3/uL (1.2-3.4); Absolute Monocyte Count 0.52 10^3/uL (0.1-0.8); Eosinophils % 2.1; HCT 43.4 % (40.0-50.0); HGB 14.1 g/dL (13.5-17.5); Immature Grans % 0.4; MCH 27.9 pg (27.0-33.0); MCHC 32.5 % (32.0-36.0); MCV 86 fL (80-95); MPV 8.3 fL (8.0-11.0); Monocytes % 6.4; Neutrophils % 52.1; Platelet Count 223 10^3/uL (130-400); RBC 5.05 10^6/uL (4.36-5.78); RDW 12.8 % (11.8-14.1); WBC 8.07 10^3/uL (4.4-10.8)
== END 2023-07-11 03:58 | disposition home or self-care (01) ==
LOC: LBO 03:57
PROVIDERS: PCP Nurse Practitioner Family; Visit Provider Nurse Practitioner Family
DX: D64.9 Anemia, unspecified (principal)
CPT/HCPCS: 36415; 85025

== ENCOUNTER 2023-09-06 12:07 | Outpatient (CLI) | payer MEDICAID, SELFPAY ==
--- NOTE | 2023-09-06 11:15 | DI.RAD_ITS ---
Exam(s) XR HIP RT COMPLETE AP PELVIS EXAM: XR HIP RT COMPLETE AP PELVIS CLINICAL HISTORY: hip pain. TECHNIQUE: 2D digital imaging was performed. Two views COMPARISON: CR XR hip RT complete AP pelvis from 12/11/2018 XR hip RT in OR from 12/30/2018 FINDINGS: BONES: No acute fracture is present. No bony destructive lesion is seen. JOINTS: No dislocation present. Further narrowing superior right hip joint space, now severe. Spurri ng from the acetabulum and margin of the femoral head, also worsening. Mild narrowing of the left hi p joint space and periarticular spurring. Visualized SI joints and pubic symphysis are unremarkable. SOFT TISSUE: Prostate calcifications. IMPRESSION: Severe degenerative changes of the right hip. DATA REPOSITORY: RADIATION DOSE DELIVERED:
== END 2023-09-06 12:08 | disposition home or self-care (01) ==
LOC: DIORS 12:07
PROVIDERS: PCP Nurse Practitioner Family; Visit Provider Physician Assistant
DX: M16.11 Unilateral primary osteoarthritis, right hip (principal)
CPT/HCPCS: 73502

== ENCOUNTER 2023-10-08 02:53 | Outpatient (CLI) | payer MEDICAID, SELFPAY ==
[2023-10-08 14:56] LABS: HCT 40.7 % (40.0-50.0); HGB 13.5 g/dL (13.5-17.5); MCHC 33.2 % (32.0-36.0); MCV 84 fL (80-95); MPV 8.1 fL (8.0-11.0); Platelet Count 198 10^3/uL (130-400); RBC 4.83 10^6/uL (4.36-5.78); RDW 12.8 % (11.8-14.1); RDW-SD 39.2 fL; WBC 6.75 10^3/uL (4.4-10.8)
[2023-10-08 15:25] LABS: Anion Gap 9.8 mmol/L (3-11); BUN 9 mg/dL (7-18); CO2 27.2 mmol/L (21.0-32.0); CREATININE 0.9 mg/dL (0.70-1.30); Calcium 9.7 mg/dL (8.5-10.1); Chloride 110 mmol/L (98-107); Estimated GFR 100.86 (mL/min/1.73m2); Glucose 121 mg/dL (74-106); Potassium 4.1 mmol/L (3.5-5.1); Sodium 147 mmol/L (136-145)
== END 2023-10-08 02:54 | disposition home or self-care (01) ==
LOC: LBO 02:53
PROVIDERS: PCP Nurse Practitioner Family; Visit Provider Student in an Organized Health Care Education/Training Program
DX: M16.11 Unilateral primary osteoarthritis, right hip (principal); Z01.818 Encounter for other preprocedural examination
CPT/HCPCS: 36415; 80048; 85027

== ENCOUNTER 2023-10-23 05:56 | Day surgery (SDC) | payer MEDICAID, SELFPAY ==
[2023-10-23] VITALS (12 sets, daily range): BP systolic 87–133; BP diastolic 38–83; PULSE 75–93; RESP 14–22; TEMP 36–37.1; O2SAT 95–99; BMI 36.3
[2023-10-23] MEDS: Acetaminophen 500 MG TAB 1000 MG PO (06:39)
[2023-10-23] MEDS: Celecoxib 200 MG CAP 400 MG PO (06:39)
--- NOTE | 2023-10-23 06:45 | ANES.PREOP_ITS ---
General Info Date of Service Date Performed: 10/23/23 Height: 5 ft 8 in Weight: 108.6 kg Body Mass Index (BMI): 36.3 Surgical Procedure: Operation Date: 10/23/23 07:50 Proposed Procedure Side Surgeon p Hip Total Hip Anterior, ACTIS Right Wojciech Weaver MD Meds Allergies and Home Medications Allergies Allergy/AdvReac Type Severity Reaction Status Date / Time nicotine [From [facility]] AdvReac headaches Verified 10/23/23 06:14 ivory soap Allergy Mild Itching Uncoded 10/23/23 06:14 swollen eyes Home Medication Medication Instructions Recorded nystatin 100,000 unit/gram topical 15 gm topical PRN 03/22/17 cream aspirin 81 mg tablet,delayed 81 mg PO HS 10/31/18 release (Aspir-Low) blood-glucose meter #1 ea 11/06/19 lancets #200 ea 12/15/19 diclofenac sodium 1 % topical gel 2 - 4 g topical QID PRN pain #100 12/24/20 (Voltaren) grams multivitamin 1 cap PO BID 04/08/21 metformin 1,000 mg tablet 1,000 mg PO BID #180 tabs 11/09/22 citalopram 40 mg tablet 40 mg PO HS #90 tabs 11/23/22 hydroxyzine HCl 50 mg tablet 50 mg PO BID PRN anxiety #180 tabs 01/10/23 simvastatin 40 mg tablet 40 mg PO QPM #90 tab-caps 01/11/23 bupropion HCl 300 mg 24 hr tablet, 300 mg PO DAILY #90 tabs 02/28/23 extended release (Wellbutrin XL) acetaminophen 325 mg tablet 325 mg PO ONCE PRN fever or pain 04/19/23 blood sugar diagnostic (Blood #200 ea 04/26/23 Glucose Test strips) pen needle, diabetic 32 gauge x #200 ea 04/26/23 (BD Ultra-Fine Anisha Pen Needle) insulin glargine 100 unit/mL (3 20 unit (0.2 mL) subcut DAILY Dx: 06/03/23 mL) subcutaneous pen (Lantus E11.9 to maintain HbA1c less than Solostar U-100 Insulin) 7% #18 SYRGS pantoprazole 40 mg tablet,delayed 40 mg PO QAM #90 tab-caps 06/14/23 release liraglutide 0.6 mg/0.1 mL (18 mg/3 1.2 mg (0.2 mL) subcut DAILY #18 mL 10/12/23 mL) subcutaneous pen injector amoxicillin 500 mg capsule mg 10/23/23 ibuprofen 400 mg tablet (IBU) 400 mg PO ONCE 10/23/23 Current Visit Medications: Current Medications Generic Name Dose Route Start Last Admin Trade Name Freq PRN Reason Stop Dose Admin Acetaminophen 1,000 mg 10/23/23 06:00 10/23/23 06:39 Acetaminophen 500 Mg Tab PO 11/22/23 05:59 1,000 mg PREOP SUZAN Administration Celecoxib 400 mg 10/23/23 06:00 10/23/23 06:39 Celecoxib 200 Mg Cap PO 11/22/23 05:59 400 mg PREOP SUZAN Administration Tranexamic Acid 1,000 mg/ 60 mls @ 360 mls/hr 10/23/23 06:00 Sodium Chloride IV 11/22/23 05:59 PREOP SUZAN Ringer's Solution 1,000 mls @ 80 mls/hr 10/23/23 06:00 IV 10/23/23 23:59 INFUSION SUZAN Cefazolin Sodium/Dextrose 2 gm in 50 mls @ 100 mls/hr 10/23/23 06:00 Ancef Duplex IVPB 10/23/23 23:59 PREOP SUZAN IV Miscellaneous Supplies 1 each 10/23/23 06:00 Iv Access IV 10/23/23 23:59 DIRECTED SUZAN Sodium Chloride 0 ml 10/23/23 06:00 Normal Saline Flush 10 Ml Syr IV 10/23/23 23:59 PRN PRN Sodium Chloride 0 ml 10/23/23 06:00 Normal Saline 10 Ml Vial IJ 10/23/23 23:59 DIRECTED PRN Sterile Water 0 ml 10/23/23 06:00 Water,Injection,Sterile 10 Ml Vial IJ 10/23/23 23:59 DIRECTED PRN PFSH Active Problems Active Problems: Problem Status Onset Code Arthritis of right hip M16.11 Cirrhosis K74.60 COPD (chronic obstructive pulmonary disease) J44.9 History of colon polyps Z86.010 Right hip pain M25.551 Anxiety and depression F41.9, F32.9 Type 2 diabetes mellitus ~10/2019 E11.9 Obesity (BMI 30-39.9) E66.9 Diverticulosis K57.90 Chronic back pain M54.9, G89.29 Chronic pain of both knees M25.561, M25.562, G89.29 Gastritis 10/09/11 K29.70 Gastroesophageal reflux disease K21.9 Generalized osteoarthritis 02/21/18 M15.9 Hyperlipidemia, unspecified E78.5 Obstructive sleep apnea 10/04/17 G47.33 Seborrheic dermatitis L21.9 Medical History Medical History Anemia COVID-19 Tubular adenoma of colon Achilles tendinitis, right leg Paul's deformity of right heel Suicide attempt Pancreatitis (01/23/18) Tobacco use disorder QUIT 03/2018 Surgical History Surgical History [place] teeth extracted History of colonoscopy (~10/09/19) hand surgery Skin removed between fingers on his left hand (1993) EGD (~09/2019) 2010 Duodenitis, gastritis Extraction of cataract removal, insert prosthetic lens (10/19/2015):Left removal, insert prosthetic lens (06/23/2014):Right Tobacco Smoking/Tobacco Use Status: Former Tobacco Use Alcohol Alcohol Intake: never Substance Use Substance use: Never Substance use type: does not use Vital Signs and Lab Results Vital Signs Most Recent Vital Signs in EMR: Most Recent Vital Signs Temp Pulse Resp BP Pulse Ox 36.3 C L 84 14 133/68 97 10/23/23 06:27 10/23/23 06:27 10/23/23 06:27 10/23/23 06:27 10/23/23 06:27 Lab Results Blood Type / Crossmatch: No Data to Display Complete Blood Count: White Blood Count 6.75 10^3/uL (4.4-10.8) 10/08/23 14:49 Red Blood Count 4.83 10^6/uL (4.36-5.78) 10/08/23 14:49 Hemoglobin 13.5 g/dL (13.5-17.5) 10/08/23 14:49 Hematocrit 40.7 % (40.0-50.0) 10/08/23 14:49 Platelet Count 198 10^3/uL (130-400) 10/08/23 14:49 Complete Metabolic Panel: Sodium 147 mmol/L (136-145) H 10/08/23 14:49 Potassium 4.1 mmol/L (3.5-5.1) 10/08/23 14:49 Chloride 110 mmol/L (98-107) H 10/08/23 14:49 Carbon Dioxide 27.2 mmol/L (21.0-32.0) 10/08/23 14:49 BUN 9 mg/dL (7-18) 10/08/23 14:49 Creatinine 0.9 mg/dL (0.70-1.30) 10/08/23 14:49 Est GFR (CKD-EPI 2020) 100.86 (mL/min/1.73m2) 10/08/23 14:49 Calcium 9.7 mg/dL (8.5-10.1) 10/08/23 14:49 Glucose 121 mg/dL (74-106) H 10/08/23 14:49 Liver Function Panel: No Data to Display Coagulation Panel: No Data to Display Cardiac Panel: No Data to Display Arterial Blood Gas: No Data to Display Venous Blood Gas: No Data to Display Pancreas Panel: No Data to Display Thyroid Panel: No Data to Display Infectious Disease: No Data to Display Blood Cultures: No Data to Display Toxicology Panel: No Data to Display Imaging and Studies Imaging and Studies Study information below may be from another EMR and interpreted by another provider. Please see original notes in EMR for more complete details. EKG Summary: 02/28/21: Exam: Resting ECG Reason for Exam: chest pain Patient Location: E HR:76 bpm ECG Measurements Heart Rate 76 AXIS MA 178 P 46 QRSd 114 QRS 54 QT 444 T27 QTc 499 Conclusion Sinus rhythm...normal P axis, V-rate 60- 99 I have reviewed and I agree with the emergency room physician's ECG interpretation. Stress Test Summary: 07/24/2019: Stress ECG Conclusion 1. Normal hemodynamic response to pharmacologic stress. 2. ECG: Non-ischemic 3. Imaging: Non-ischemic 4. This represents a normal stress test Pulmonary Function Summary: 02/12/2019: INTERPRETATION OF STUDY Spirometry shows mild obstructive airways disease with no bronchodilator response. LUNG VOLUMES - Lung volumes show no evidence of restriction. DIFFUSION CAPACITY- Normal. AIRWAY RESISTANCE - Normal. IMPRESSION Mild obstructive airways disease with no significant bronchodilator response. Clinical correlation recommended. Anesthesia Assessment and Plan Anesthesia History Personal History: No History of Anesthesia Complications Family History: No Family History of Anesthesia Complications Exercise Tolerance Exercise Tolerance: Metabolic Equivalents>4 Cardiac & Pulmonary Exam Cardiac Exam: Normal S1/S2 Heart Sounds Pulmonary Exam: Clear Bilateral Breath Sounds Implantable Cardiac Device Does patient have a Pacemaker or an ICD?: No Airway Exam Known Difficult Airway: No Mallampati Class: 2 Mouth Opening: Normal (> 3cm) Thyromental Distance: Greater than 3 cm Facial Hair: Full García Neck Range of Motion: Full ROM Neck Circumference: Normal Teeth Condition: Edentulous ASA Classification ASA Score: ASA 2 Emergency Case?: No NPO Status NPO Status: NPO Clears >2 hours, Solids >8 hours Anesthesia Plan Resuscitation Status: Full Code Anesthesia Technique: General Anesthesia Airway Planned: Endotracheal Tube Monitors Used: Standard Monitors and SedLine
[2023-10-23] MEDS: Lactated Ringers 1,000 ML 80 ML IV (07:24)
--- NOTE | 2023-10-23 07:28 | PDOC.DSDIS_ITS ---
Date of service: 10/23/23 Time of Service: 07:32 Discharge Plan Disposition Patient Disposition: Home Condition: Good Discharge Details Reason For Visit: Right hip DJD Attending Provider: Wojciech Weaver Primary Care Provider: Griselda Vides Home Meds and New Rx's Prescriptions: New acetaminophen 500 mg tablet 1,000 mg PO Q8H PRN Qty: 90 0RF Rx Instructions: Take two tablets up to every 8 hours as needed for pain aspirin 81 mg tablet,delayed release (DR/EC) 81 mg PO BID 30 Days Qty: 60 0RF celecoxib [Celebrex] 200 mg capsule 200 mg PO BID PRNQty: 60 0RF Rx Instructions: Take one tablet twice daily for pain and inflammation docusate sodium [Colace] 100 mg capsule 100 mg PO BID Qty: 30 0RF dexamethasone 4 mg tablet 4 mg PO DAILY Qty: 2 0RF Rx Instructions: Take one tablet once daily for two days oxycodone 5 mg tablet 5 mg PO Q6H PRNQty: 12 0RF Rx Instructions: Take one tablet up to every 6 hours as needed for severe postoperative pain Continued (DME) blood-glucose meter Misc See Rx Instructions .ROUTE .MEDSUPPLY Qty: 1 0RF Rx Instructions: E11.65 to check daily for goal A1C <8% diclofenac sodium [Voltaren] 1 % gel 2 - 4 g topical QID PRN (Reason: pain) Qty: 100 3RF Rx Instructions: 2G for upper extremity joints; 4G for lower extremity joints nystatin 15 GM cream 15 gm Topical PRN (DME) lancets Misc See Rx Instructions .ROUTE .MEDSUPPLY Qty: 200 3RF Rx Instructions: BID with insulin & victoza for E11.65 and goal A1C less than 8% metformin 1,000 mg tablet 1,000 mg PO BID Qty: 180 3RF Rx Instructions: For diabetes citalopram 40 mg tablet 40 mg PO HS Qty: 90 3RF hydroxyzine HCl 50 mg tablet 50 mg PO BID PRN (Reason: anxiety) Qty: 180 3RF simvastatin 40 mg tablet 40 mg PO QPM Qty: 90 3RF bupropion HCl [Wellbutrin XL] 300 mg tablet extended release 24 hr 300 mg PO DAILY Qty: 90 3RF (DME) Blood Glucose Test Strip See Rx Instructions .ROUTE .MEDSUPPLY Qty: 200 3RF Rx Instructions: As directed to check blood glucose twice daily. On insulin. Dispense covered brand. (DME) pen needle, diabetic [BD Ultra-Fine Anisha Pen Needle] 32 gauge x 5/32 needle See Rx Instructions .ROUTE .MEDSUPPLY Qty: 200 3RF Rx Instructions: BID with insulin & victoza for E11.65 and goal A1C less than 8% insulin glargine [Lantus Solostar U-100 Insulin] 100 unit/mL (3 mL) insulin pen 20 unit subcut DAILY Qty: 18 3RF pantoprazole 40 mg tablet,delayed release (DR/EC) 40 mg PO QAM Qty: 90 3RF Rx Instructions: Take on an empty stomach, at least 20-30 minutes before first meal liraglutide 0.6 mg/0.1 mL (18 mg/3 mL) pen injector 1.2 mg subcut DAILY Qty: 18 3RF multivitamin Capsule 1 cap PO BID amoxicillin 500 mg capsule Patient Comments: TAKE 2 CAPAULES BY MOUTH NOW THEN TAKE ONE CAPSULE BY MOUTH EVERY 6 HOURS UNTIL ALL TAKEN Discontinued acetaminophen 325 mg tablet 325 mg PO ONCE PRN (Reason: fever or pain) aspirin [Aspir-Low] 81 mg Tablet,Delayed Release (Dr/Ec) 81 mg PO HS Patient Comments: pt. states he hasnt taken for about a year ibuprofen [IBU] 400 mg tablet 400 mg PO ONCE Discharge Instructions Additional Instructions: Total Hip Discharge Instructions Activity: The most important activity is to walk. You should try to take short walks a few times a day. You have no restrictions on movement or positioning, but do not try to force what you do. You will find some stiffness and weakness with hip flexion (lifting your knee). Do not try to strengthen this too early, continue to practice walking and stairs and this will come. - Outpatient physical therapy can be helpful to help return you to a normal gait and improve your flexibility and strength. This can start around 2 weeks. For some patients, it?s not necessary. Usually this is determined at the time of discharge or at the first post-operative visit. - You should wear the SUSANNA hose on both legs for 2 weeks. Dressing: Keep the surgical dressing in place for at least one week. After the first week it may be removed and replace with light gauze and tape or nothing. It may get wet after 3 days but avoid soaking the dressing. If it gets wet, j ust lightly pat dry. It is important to always keep some gauze between skin folds, especially when you are sitting. Spend some time with the wound exposed when you are lying flat as the incision does wrinkle onto itself. Medications: - You should take Tylenol and an anti-inflammatory Celebrex as your primary pain control medications. If the Celebrex is too expensive or not covered, please call the office for another alternative (Advil/Ibuprofen or Naproxen/Aleve). - You have been prescribed a stronger pain medication Oxycodone for breakthrough pain, take as needed as prescribed. - You take a stomach acid reduction agent Pantoprozole at baseline - continue with this to help reduce stomach acid and reflux. - You have also been prescribed Decadron to help with post-operative nausea and pain. You will take this for two days starting tomorrow. - You will be taking Aspirin 81mg twice a day for DVT prevention unless instructed otherwise. - If you have constipation you should take Colace (which has been prescribed) or Miralax (which is available [id number]). It takes most people 3-4 days to have a bowel movement. Follow-up: 2 weeks If you have any acute concerns or questions, please do not hesitate to contact the office at [phone]. You may contact Dr. Weaver with any questions after hours through the hospital at [phone] or on his cell phone at [phone]. Referrals: Wojciech Weaver MD [ [facility] STAFF PHYSICIAN] - Equipment/Supplies: Walker Activity:: Activity as Tolerated Remove Dressings/Wound Care:: Do Not Remove Shower/Bathe:: 72 hours and Cover Diet:: As Tolerated Discharge Orders Discharge Orders: Discharge Order (Routine); Ordered 10/23/23 Ordered By: Paulette Weiss
[2023-10-23] MEDS: ceFAZolin 2 GM/50 ML BAG IVPB (07:36)
--- NOTE | 2023-10-23 09:00 | DI.RAD_ITS ---
Exam(s) XR HIP RT IN OR EXAM: XR HIP RT IN OR CLINICAL HISTORY: ARTHRITIS RIGHT HIP TECHNIQUE: 2D and realtime digital imaging was performed. CONTRAST MATERIAL: Refer to procedure report. COMPARISON: CR XR HIP RT COMPLETE AP PELVIS from 09/06/2023 FINDINGS: Fluoroscopy was provided for Dr. Weaver during the performance of a right total hip replacement. Please refer to the procedure report for complete details. Ka,r=3.98 mGy IMPRESSION: RADIATION DOSE DELIVERED:
--- NOTE | 2023-10-23 09:11 | ROE_ITS ---
Date of service: 10/23/23 Time of Service: 08:00 Operative Note Operative Note DATE OF PROCEDURE: 10/23/23 PRE-OP DIAGNOSIS: Right Hip Osteoarthritis POST-OP DIAGNOSIS: same PROCEDURE: Right Anterior Total Hip Arthroplasty with Intraoperative Navigation SURGEON: Wojciech Weaver MINES SAFETY ENGINEER: Paulette Weiss ANESTHESIA TYPE: General LMA/ETT Refer to Anesthesia Record ESTIMATED BLOOD LOSS: 250 PATHOLOGY: none sent TOURNIQUET TIME: 0 COMPLICATIONS: None Patient was transported to: PACU Patient's condition: stable Implants: 1. Depuy Bixby Acetabular Component, 56mm 2. Depuy Acetabular Liner, [id number] 3. Depuy Actis Standard Collared Femoral Stem, Size 5 4. Depuy Altrx Ceramic Femoral Head, Size 36+1.5mm Indications: I have seen Awais in clinic for symptoms of hip arthritis, confirmed with radiographic findings. Awais has exhausted nonoperative methods and was having significant limitations in daily function and desired better function and less pain. I discussed the technical details of a hip replacement. I explained the risks of the procedure to include, but not limited to, bleeding, infection, pain, stiffness, fracture, damage to nerves and vessels, damage to muscles and tendons, loosening, instability, leg length inequality, need for repeat procedure, blood clot and cardiopulmonary demise. Despite these risks, Awais elected to proceed. Findings: There was significant signs of arthritis throughout the hip with significant anterior capsular calcification. Procedure Description: Awais was greeted in the preoperative holding area where the correct side was identified and marked. The consent was reviewed with the patient and signed. The history and physical was updated. All questions were answered. He was taken back to the operating room. A general anesthestic was then administered. The feet were wrapped with cast padding and Coban and then placed into the boot liners and then into the boots. Care was taken to protect the skin and make sure the heels were fully down and the boots were stable. The patient was then positioned onto the HANA table. Both legs were held in a neutral position. SCDs were applied. The patient was then slid down onto a peroneal post. Prophylactic antibiotics in the form of Cefazolin were administered. 1g of Tranxemic Acid was given intravenously within 30 minutes of incision. The right leg was then prepped with Chloraprep and draped in a standard fashion. A second prep with Chloraprep was performed prior to placement of a shower-curtain type drape with Iodine impregnated skin protection. A timeout to confirm correct identity, side and site, procedure, allergies, anesthesia, and medical concerns was performed. An obliquely oriented incision was made starting lateral to the ASIS and running distal over the Tensor Fascia Tita (TFL) muscle belly toward the fibular head, approximately 10cm. The skin and soft tissue was dissected sharply, through Antoine?s fascia, and to the fascia of the TFL. With the fascia and superior border of the IT band identified, the fascia was incised with a new knife just above any perforators from the IT band. The TFL muscle belly was bluntly dissected away from the fascia and moved laterally. The fat between TFL and rectus was identified to ensure the dissection was not within the TFL. Blunt dissection created space between abductors and the capsule and retractor was placed over the lateral femoral neck. The fibers of the rectus femoris tendon were identified and these were freed from the anterior capsule. A second cobra retractor was placed around the medial femoral neck. The TFL was further retracted laterally to show the deep fascia. Careful dissection through this layer identified three main crossing vessels of the lateral femoral circumflex. These were cauterized in multiple locations and then cut without any noticeable bleeding. The TFL was further released bluntly from the deep fascia to expose anterior hip capsule and fat The Jason orthopaedic retractor was then placed beneath the TFL and against sartorius and medial soft tissues to protect and retract the soft tissues. A T-capsulotomy was then performed starting at the superior lateral acetabulum and moving distally to the intertrochanteric ridge. These capsular flaps were tagged with a No. 1 Ethibond and elevated from within. The capsular flaps were released to the shoulder of the lateral neck and to the lesser trochanter to give excellent visualization of the proximal femur. The anterior capsule had a large piece of bone which was rsected out of the capsule. A neck osteotomy was performed using an oscillating saw based on preoperative templates. This cut started in the shoulder and of the lateral neck and exited medially. The saw was at all times directed medially to avoid injury to the greater trochanter. Gross traction was applied to the leg and the osteotomy opened. The femoral head was removed with a corkscrew, making sure to protect the TFL on its exit. Traction was released after head removal. This was measured on the back table to determine the starting reamer size. Portions of the rectus obscuring visualization were minimally elevated off the superior acetabulum. An anterior retractor was placed over the anterior wall between capsule and labrum and attached to the Gripper retraction system. The femur was rotated to 90 degrees and medial capsule was fully released until the lesser trochanter was palpable and visible; the femur was returned to 30 degrees. A posterior retractor was placed similarly between capsule and labrum. This provided excellent visualization. The contents of the cotyloid fossa were removed with electrocautery and the labrum was removed with a knife. There was a notable floor osteophyte. There was significant chondromalacia of the superior acetabulum. Acetabular reaming began with a 52mm reamer. This first reaming was directed anterior to posterior and medial to get down to the true floor. This was inspected and reamed until the true floor was reached. The anterior retractor was then released and entry and exit was provided by traction on the capsular fl aps. I then reamed sequentially up to a 56mm reamer where good fit was obtained. The larger reamers were oriented based on anatomical reference of the anterior and lateral dunne to ensure proper abduction and anteversion. Positioning and size was confirmed with the fluoroscopy. A 56mm Depuy Bixby acetabular component was selected. The acetabulum was reamed around the periphery with the selected acetabular size to prevent a rim fit. The deep tissues were irrigated. The acetabular component was then impacted in a position of about 40-45 degrees of abduction and 15-20 degrees of anteversion, using the patient?s anatomy as the ultimate landmark. Fluoroscopy was used to confirm this. There was excellent chief growth officer of the acetabular component and the inserting handle was removed. The acetabular liner, Depuy [id number] polyethylene liner, was inserted and lined up with the tines of the acetabular component. There was no soft tissue interposition. The liner was then impacted into position and confirmed to be well-seated. A portion of the kya-articular cocktail was then injected around the acetabulum into the capsule and periosteum. This cocktail consisted of 123mg of Ropivacaine, 0.25mg of Epinephrine, 0.04mg of Clonidine, and 15mg of Ketorolac, diluted to 50cc. The leg was rotated to 120 degrees. Any remaining medial capsule was released until the lesser trochanter was easily palpable. A retractor was placed medially. The lateral capsule was further released into the shoulder to allow access to the greater trochanter. A Jauregui retractor was placed over the greater trochanter which allowed the trochanter to flip in front of the capsule for excellent exposure. The leg was brought down into maximal extension and 20 degrees of adduction while ensuring there was no impingement on the acetabulum. Any remnant capsule within the trochanter was released. Piriformis and obturator externis were identified and protected. There was excellent access to the proximal femur. The lateral neck remnant was removed with a rongeur. A blunt canal probe was used to identify the canal and trajectory for later broaching. A box osteotome initiated the broach course. A small curved rasp and a curved curette were used to work laterally. Broaching then began with a starter Actis broach. This was inserted manually around the trochanter and into the canal before mallet blows. The broach was seated to a few millimeters below the cut level based on the neck cut and the preoperative template. Sequential broaching was continued with the Next 1 Interactivese pneumatic broaching device until a tight fit was obtained with good rotational control of the femur. A trial standard neck was inserted along with a +1.5 trial head. The leg was brought out of extension and adduction and then reduced with traction and internal rotation. The leg was stable anteriorly in a position of 30 degrees of extension and 90 degrees of external rotation. Fluoroscopy was used to ensure there was no fracture and the stem was seated well. Leg lengths were checked with an AP pelvis and pelvic reference points. EqsQuest navigation system was used to confirm appropriate positioning and leg length and offset. Once content with the desired offset and leg lengths, the leg was brought back into extension, external rotation and adduction. The periosteum and surrounding tissue was injected with remaining portion of the kya-articular cocktail. The proximal femur was irrigated as well as the deep tissues. The Lightning Labuy Actis standard collared stem, size 5, was then manually inserted into the proximal femur making sure to control rotation. It was then malleted into position with light blows, giving breaks to allow bone expansion and decrease risk of fracture. The selected Depuy Altrx Ceramic Head, size 36+1.5mm, was then placed onto the clean and dry trunnion and secured with impaction onto the tapered fit. The leg was brought back out of extension and adduction and reduced with traction and internal rotation. Stability was confirmed with no shuck at 90 degrees of external rotation and 30 degrees of extension. No impingement through range of motion arc. Final x-ray images were obtained with fluoroscopy to confirm adequate positioning and no intraoperative fracture. The deep tissues were thoroughly irrigated with Irrisept chlorhexadine solution. This was allowed to sit in the wound for 3 minutes before being thoroughly irrigated out with normal saline. The capsule was then reapproximated with the previously placed Ethibond sutures. The TFL fascia was finally closed with a No. 2 Stratafix, barbed suture. Deep tissues were then reapproximated with 0 Vicryl and a running 2-0 Vicryl. The skin was closed with a running 4-0 Monocryl in a subcuticular fashion. This was reinforced with skin glue. A Mepilex silver dressing was applied. At the end of the case, all counts were correct. Awais was transferred to the hospital bed without difficulty and suffering no apparent complication. Gene has a good prognosis. Physical therapy will start today and without restrictions, weight-bearing as tolerated. Aspirin 81mg BID will be used for DVT prophylaxis.
--- NOTE | 2023-10-23 09:12 | W.BRIEF ---
Date of service: 10/23/23 Time of Service: 09:12 Brief Operative Note Procedure/Pre-Op Diagnoses: Operation Date: 10/23/23 07:50 Actual Procedures p Hip Total Hip Anterior, ACTIS(Right) - Wojciech Weaver MD Pre-Op Diagnosis: ARTHRITIS RIGHT HIP Post-Op Diagnosis: ARTHRITIS RIGHT HIP 250 Specimen/Culture Specimen(s): None Culture(s): None Complications Complications: None
[2023-10-23] MEDS: fentaNYL 100 MCG/2 ML VIAL IVP ×2 (09:59→10:05)
--- NOTE | 2023-10-23 10:29 | W.ANESPOSTOP ---
Postoperative Evaluation Date, Time and Location Date Performed: 10/23/23 Time Performed: 10:27 Patient Location: PACU Vital Signs Most Recent Imported Vital Signs: Most Recent Vital Signs Temp Pulse Resp BP Pulse Ox 36.8 C 79 16 126/71 96 10/23/23 10:20 10/23/23 10:20 10/23/23 10:20 10/23/23 10:20 10/23/23 10:20 Pain Score Most Recent Pain Score: Most Recent Pain Score Pain Level 4 10/23/23 10:20 Assessment Mental Status: Awake (Alert & Oriented to Patient Baseline) Airway and Respiratory Function: Patent airway with normal (patient baseline) respiratory exam Cardiovascular Function: Hemodynamically Stable Hydration Status: Adequately Hydrated Nausea & Vomiting: No Nausea or Vomiting Pain: Pain is tolerable per patient Peripheral Nerve Block: Patient did not receive a nerve block
[2023-10-23] MEDS: oxyCODONE 5 MG TAB PO (10:55)
--- NOTE | 2023-10-23 11:27 | PT.INIE ---
PT Notes Visit Reasons: Right hip DJD Physical Therapy Day Surgery Initial Evaluation Date: 10/23/2023 Referring Doctor: GIRISH Villalta PT Orders: PT CONSULT: S/P Ortho Surgery Precautions: WBAT on the R LE with AD. Patient Profile/Admitting Diagnosis: Óscar is a 53-year-old male with degenerative joint disease of the right hip and is status post right total hip arthroplasty on postoperative day 0. PMHX: Medical History (Updated 10/05/23 @ 13:32 by Paulette Weiss) Anemia COVID-19 Tubular adenoma of colon Achilles tendinitis, right leg Paul's deformity of right heel Suicide attempt Pancreatitis (01/23/18) Tobacco use disorder QUIT 03/2018 Surgical History (Updated 10/08/23 @ 14:18 by Paulette Weiss) History of colonoscopy (~10/09/19) hand surgery Skin removed between fingers on his left hand (1993) EGD (~09/2019) 2010 Duodenitis, gastritis Extraction of cataract removal, insert prosthetic lens (10/19/2015):Left removal, insert prosthetic lens (06/23/2014):Right Social History/Home Situation: Lives alone in an apartment with 3 steps to enter with a rail on the left side going up. Will have good support from his friends as he recovers. Has 9 pet snakes. 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 Equipment Owned/DME: 4WW, SPC Subjective: Reports 2/10 pain on the right hip with movement and with weight bearing. Denies headache, chest pain, and lightheadedness throughout session Objective: General Observation: Resting in bed. Mepilex Ag over surgical incision. TEDS to be legs. Mental Status: A&O x 4 Pain: As above ROM: Right Lower Extremity: Hip flexion WFL. Hip abduction WFL. Knee flexion WFL. Ankle dorsiflexion WFL. Ankle plantarflexion WFL. Left Lower Extremity: Hip flexion WFL. Hip abduction WFL. Knee flexion WFL. Ankle dorsiflexion WFL. Ankle plantarflexion WFL. Strength: Right Lower Extremity: Hip flexors 4/5. Hip abductors 4/5. Knee flexors 5/5. Knee extensors 4/5. Ankle dorsiflexors 5/5. Ankle plantarflexors 5/5. Left Lower Extremity:Hip flexors 5/5. Hip abductors 5/5. Knee flexors 5/5. Knee extensors 5/5. Ankle dorsiflexors 5/5. Ankle plantarflexors 5/5. Sensation: Intact as to pain and light pressure in bilateral lower extremities Bed Mobility/Transfers: Minimal cueing provided for use of B hands as needed for support, movement sequence, Ad management, and and posture to reduce fall risk and minimize pain report Supine to sit stand by assist Sit to stand contact-guard assist Stand to sit standby assist Bed to chair standby assist Gait: Facilitated safe and correct performance of level surface ambulation covering a distance of 150 feet with step through reciprocal heel toe gait pattern requiring only standby assist using front wheeled walker with minimal verbal cueing provided for AD management and posture, to minimize fall risk and reduce pain report Stairs: Guided patient with safe and correct negotiation of 3 x 4 inch steps and 2 x 6 inch steps while holding onto 1 rail with 1 hand and utilizing a single-point cane with the other hand with stable step to gait pattern requiring only minimal verbal cueing for correct technique and AD management, to minimize fall risk and reduce pain report. Balance: Static Sitting: Normal Dynamic Sitting: Normal Static Standing: Fair Dynamic Standing: Fair Special Tests: Mobility Limitations Standardized Measure [facility] AM-PAC 6 clicks Basic Mobility Inpatient Short Form: Raw Score: 23 CMS Score: 11% deficit Informed Consent/Education: Patient instructed in purpose of PT consult. Packet containing CARLOS exercise protocol has been given to patient. Education and training on initial set of exercises that can be done at home have been completed with patient. Trained patient with correct performance of exercises below to maximize motor control, joint flexibility, soft tissue extensibility of the R hip musculature to facilitate return to independent functional mobility performance. Access Code: [email or web address] URL: [email or web address] Date: 10/23/2023 Prepared by: Abbi Larose Exercises - Gluteal Sets - 1 x daily - 7 x weekly - 1 sets - 10 reps - 5 hold - Supine Heel Slide - 1 x daily - 7 x weekly - 1 sets - 10 reps - 5 hold - Supine Ankle Pumps - 1 x daily - 7 x weekly - 1 sets - 10 reps - 5 hold - Seated March - 1 x daily - 7 x weekly - 1 sets - 10 reps - 5 hold - Seated Long Arc Quad - 1 x daily - 7 x weekly - 1 sets - 10 reps - 5 hold Assessment: Patient requires the use of a front wheeled walker for all mobility ADL performance to maximize independence and reduce fall risk. Patient presents with clinical signs and symptoms consistent with current/admitting diagnoses that have resulted to mobility limitations, gait instability, generalized weakness, and impairment of motor control as demonstrated by the following impairment level findings: 1. Decreased strength to right hip major muscle groups 2. Impaired standing balance Impairments are contributing to the following functional limitations: 1. Inability to safely ambulate without assistive device 2. Increase completion time for mobility ADL performance 3. Increased fall risk Patient is assessed as a 63299 moderate complexity based on the following: History: 53-year-old male with impairment level findings, functional limitations, and past medical history as indicated above Examination: Demonstrable impairment in strength, balance, and mobility level with underlying impairments and functional limitations as documented above Presentation: Evolving Decision Makin moderate complexity Goals: N/A. PT evaluation and 1-2 treatment sessions only for functional mobility training using recommended AD and for HEP instruction. Plan of Care/Treatment Plan: N/A. PT evaluation and 1-2 treatment session only for functional mobility training using recommended AD and for HEP instruction. DISCHARGE RECOMMENDATIONS: Home when medically cleared by orthopedic surgeon. Recommend outpatient PT services in order to optimize functional mobility outcomes and facilitate return to independent community ambulation without an assistive device. TREATMENT CODE/TIME: 47910 x 20 minutes for 1 unit, 64391 x 19 minutes for 1 unit beginning at 11:27 AM. Thank you for the opportunity to participate in the care of this patient. Abbi Larose PT, DPT, CLT [facility] [place], [place] Please sign an return this page within 30 days if you agree with the above POC. Thank you! Physician Signature Date [facility]
== END 2023-10-23 12:59 | disposition home or self-care (01) ==
PROVIDERS: PCP Nurse Practitioner Family; Visit Provider Student in an Organized Health Care Education/Training Program
PROC: (CPT 27130; principal; 2023-10-23 07:30)
DX: M16.11 Unilateral primary osteoarthritis, right hip (principal); E11.9 Type 2 diabetes mellitus without complications; Z79.4 Long term (current) use of insulin; K21.9 Gastro-esophageal reflux disease without esophagitis; J44.9 Chronic obstructive pulmonary disease, unspecified; E66.9 Obesity, unspecified
CPT/HCPCS: 27130; 20985; 97162; 97530; 73501; C1776; J0690; J1100; J1805; J2001; J2250; J2371; J2405; J2704; J3010

== ENCOUNTER 2023-11-05 15:18 | Outpatient (CLI) | payer MEDICAID, SELFPAY ==
--- NOTE | 2023-11-05 13:00 | DI.RAD_ITS ---
Exam(s) XR HIP RT COMPLETE AP PELVIS EXAM: XR HIP RT COMPLETE AP PELVIS INDICATION: 1st post op R CARLOS. COMPARISON: CR XR HIP RT COMPLETE AP PELVIS from 09/06/2023 XA XR HIP RT IN OR from 10/23/2023 TECHNIQUE: 2D digital imaging was performed. Three views. FINDINGS: The right hip prosthesis is unchanged in alignment. No abnormal surrounding bony lucencies. There are mild degenerative changes of the left hip. Prostate calcifications noted. IMPRESSION: Stable appearance of the right hip prosthesis. DATA REPOSITORY: RADIATION DOSE DELIVERED:
== END 2023-11-05 15:19 | disposition home or self-care (01) ==
LOC: DIORS 15:18
PROVIDERS: PCP Nurse Practitioner Family; Visit Provider Student in an Organized Health Care Education/Training Program
DX: Z96.641 Presence of right artificial hip joint (principal); Z47.1 Aftercare following joint replacement surgery
CPT/HCPCS: 73502

== ENCOUNTER → 2024-05-13 01:02 | Outpatient (CLI) | payer MEDICAID, SELFPAY ==
--- OUTSIDE RECORDS SUMMARY | 2024-05-13 01:06 | XMS_ITS | Encounter Summary ---
Author Organization [facility] Address [address] [place] [address] Care Team Providers Care Supervisor Carbon Paper Coating Name Role Phone Andre Mcmullen MD Primary Care Provider [phone] Encounter Details Date Type Department Care Team (Late st Contact Info) Description 10/09/2019 Lab Requisition [facility] Pathology & Laboratory Medicine - [facility] [address] [place] [address] Paulette Dasilva, DO [address] [place], [place] [id number] Encounter for screening for malignant neoplasm of colon Social History Tobacco Use Types Packs/Day Years Used Date Smoking Tobacco: Never Assessed Sex and Gender Information Value Date Recorded Sex Assigned at Not on file Gender Identity Not on file Sexual Orientation Not on file documented as of this encounter Plan of Treatment Not on file documented as of this encounter Procedures Procedure Name Priority Date/Time Associated Diagnosis Comments SURGICAL PATHOLOGY Today 10/09/2019 9:12 EST Encounter for screening for malignant neoplasm of colon documented in this encounter Results * SURGICAL PATHOLOGY (10/09/2019 9:12 EST) Final Diagnosis A. CECUM, POLYP, BIOPSY: - Tubular adenoma. B. COLON, 80 CM, POLYP, BIOPSY: - Tubular adenoma. C. COLON, 75 CM, POLYP, BIOPSY: - Suggestive of benign submucosal lipoma. D. ANUS, POLYP, BIOPSY: - Tubulovillous adenoma, completely excised. 10/16/2019 10:42 EST [facility] at 1042 Clinical History Screening. Cecum polyp, polyp at 80 cm, polyp at 75 cm and anal polyp. 10/16/2019 10:42 [facility] Attestation There was significant resident/fellow involvement in the diagnostic evaluation of this case. By the signature below, the attending physician certifies that they have personally conducted a gross and/or microscopic examination of the described specimens and rendered or confirmed the above diagnosis. 10/16/2019 10:42 [facility] at 1042 Gross Description A. Received in formalin labelled with proper patient identification (initials F, G) and cecum polyp is a granados nodular tissue, 0.5 x 0.3 x 0.3 cm. Entirely submitted in A1. B. Received in formalin labelled with proper patient identification (initials F, G) and polyp at 80 cm is a granados lobulated tissue, 0.6 x 0.3 x 0.3 cm. Entirely submitted in B1. C. Received in formalin labelled with proper patient identification (initials F, G) and polyp at 75 cm are 2 granados irregular tissues, 0.1 cm in greatest dimension and 0.2 x 0.2 x 0.1 cm. Entirely submitted in C1. D. Received in formalin labelled with proper patient identification (initials F, G) and anal polyp is a brown multilobulated polyp, 1.0 x 0.7 x 0.6 cm. Bisected through its base and entirely submitted in D1. Suzan Griffiths 10/10/2019 10:14 10/16/2019 10:42 [facility] Resident/Tristan w: Leandro Loza MD 10/16/2019 10:42 [facility] Scanned Images 10/16/2019 10:42 [facility] Tissue SPECIMEN FROM RECTUM / Unknown 10/09/2019 9:12 EST 10/09/2019 16:31 EST Tissue specimen (specimen) COLON STRUCTURE / Unknown 10/09/2019 9:12 EST 10/09/2019 16:31 EST Tissue specimen (specimen) COLON STRUCTURE / Unknown 10/09/2019 9:12 EST 10/09/2019 16:31 EST Tissue specimen (specimen) SPECIMEN FROM RECTUM / Unknown 10/09/2019 9:12 EST 10/09/2019 16:31 EST Paulette Dasilva DO PATHOLOGY ORDERABLES [facility] [address] [place] [address] documented in this encounter Visit Diagnoses Diagnosis Encounter for screening for malignant neoplasm of colon Special screening for malignant neoplasms, colon documented in this encounter Additional Health Concerns Infection Onset Date Last Indicated Resolved Time COVID-19 02/22/2021 02/22/2021 03/24/2021 22:1 5 EDT documented as of this encounter Care Teams Supervisor Carbon Paper Coating Relationship Specialty Start Date End Date Andre Mcmullen MD PCP - General 11/07/11 documented as of this encounter
--- OUTSIDE RECORDS SUMMARY | 2024-05-13 01:06 | XMS_ITS | Clinical Summary ---
Author Organization [facility] [place] [address] Care Team Providers Care Tile Shader Name Role Phone Griselda Vides APRN Primary Care Provider [phone] Social History Tobacco Use Types Packs/Day Years Used Date Smoking Tobacco: Never Assessed Sex and Gender Information Value Date Recorded Sex Assigned at Not on file Gender Identity Not on file Sexual Orientation Not on file Plan of Treatment Health Maintenance Due Date Last Done Comments CT Colonography 1968 Colonoscopy 1968 Colorectal Cancer Screening 1968 FIT DNA 1968 FIT 1968 Sigmoidoscopy (10 year) with FIT yearly 1968 Sigmoidoscopy 1968 HIV screen 1986 Hepatitis C Screening 1986 Lipid Screening 1986 Hepatitis B vaccine (0-59 yrs) (1) 1987 Tdap adult 1987 Tetanus vaccine 1987 Zoster vaccine (1 of 2) 2018 Advance Directive 2023 Covid-19 Vaccine ( season) 2023 Influenza (Flu) vaccine (1 o f 1 - Influenza standard series) 06/22/2024 Care Teams Tile Shader Relationship Specialty Start Date End Date Griselda Vides APRN PCP - General Family Medicine 10/18/22
--- OUTSIDE RECORDS SUMMARY | 2024-05-13 01:06 | XMS_ITS | Encounter Summary ---
Author Organization [facility] [place] [address] Care Team Providers Care Irrigation Flume Layer Name Role Phone Griselda Vidse APRN Primary Care Provider Encounter Details Date Type Department Care Team (Latest Contact Info) Description 11/06/2022 Travel Social History Tobacco Use Types Packs/Day Years Used Date Smoking Tobacco: Never Assessed Sex and Gender Information Value Date Recorded Sex Assigned at Not on file Gender Identity Not on file Sexual Orientation Not on file documented as of this encounter Plan of Treatment Not on file documented as of this encounter Visit Diagnoses Not on filedocumented in this encounter Care Teams Irrigation Flume Layer Relationship Specialty Start Date End Date Griselda Vides APRN PCP - General Family Medicine 10/18/22 documented as of this encounter
--- OUTSIDE RECORDS SUMMARY | 2024-05-13 01:06 | XMS_ITS | Clinical Summary ---
Author Organization [facility] Address [address] [place] [address] Care Team Providers Care Sheet Metal Duct Installer Helper Name Role Phone Andre Mcmullen MD Primary Care Provider [phone] Social History Tobacco Use Types Packs/Day Years Used Date Smoking Tobacco: Never Assessed Interpersonal Safety Answer Date Record ed Physically Hurt Never 05/23/2020 Verbally Threaten Not on file 05/23/2020 Sex and Gender Information Value Date Recorded Sex Assigned at Not on file Gender Identity Not on file Sexual Orientation Not on file Plan of Treatment Health Maintenance Due Date Last Done Comments Hepatitis C Screen 1968 Hepatitis B Vaccine (1 of 3 - 19+ 3-dose series) 05/24 COVID-19 Vaccine ( season) 2023 Care Teams Sheet Metal Duct Installer Helper Relationship Specialty Start Date End Date Andre Mcmullen MD PCP - General 11/07/11
--- OUTSIDE RECORDS SUMMARY | 2024-05-13 01:06 | XMS_ITS | Encounter Summary ---
Author Organization [facility] Address [facility] [place] [address] Care Team Providers Care Plant Anatomist Name Role Phone Griselda Vides APRN Primary Care Provider [phone] Reason for Visit * Consultation (Routine) - Closed Specialty Diagnoses / Procedures Referred By Fide santizo Referred To Contact Gastroenterology Diagnoses Abnormal levels of other serum enzymes Abnormal levels of other serum enzymes Procedures FIBROSCAN Erik Francis MD [address] [place] [address] [facility] [address] [place] [address] Referral ID Status Reason Start Date Expiration Date V isits Requested Visits Authorized [id number] Closed Test Only PCP Updated and/or Approved 10/18/2022 10/18/2023 6 6 Encounter Details Date Type Department Care Team (Latest Contact Info) Description 11/07/2022 7:00 AM EST Procedure [place] [address] Jose Enrique Mcghee [place] [facility] [place] [address] Elevated liver enzymes; Fatty liver Social History Tobacco Use Types Packs/Day Years Used Date Smoking Tobacco: Never Assessed Sex and Gender Information Value Date Recorded Sex Assigned at Not on file Gender Identity Not on file Sexual Orientation Not on file documented as of this encounter Procedure Notes * Jose Enrique Mcghee PA - 11/07/2022 7:00 AM ESTAssociated Order(s): FIBROSCAN Procedure(s): FIBROSCAN Pre-Procedure Diagnose(s): Elevated liver enzymes; Fatty liver [facility] Liver Fibrosis Assessment Report Indication: Elevated LFTs, fatty liver, indeterminate FIB-4 score Performed by: GIRISH Guillen Procedure: Vibration Controlled Transient Elastography (VCTE) or Fibroscan [place] Protocol: Patient's identity, procedure and site were verified, confirmatory pause performed. Discussed procedure including risks and potential complications. Questions answered. Patient verbalizes understanding and wishes to proceed with Fibroscan assessment. Patient was placed in the supine position with right arm in maximum abduction to allow optimal exposure of right lateral abdomen. Patient was briefly assessed. Testing was performed in the mid-axillary location. 50Hz Shear Wave pulses were applied and the resulting Shear Wave and Propagation Speed was detected with a 3.5MHz ultrasonic signal, using the Fibroscan probe. Skin to liver capsule distance and liver parenchyma were accessed during the entire examination with the Fibroscan probe. Patient was instructed to breathe normally and abstain from sudden movements during the procedure. At least ten Sheer Waves were produced; individual measurements of each Shear Wave were calculated. Patient tolerated the procedure well with no complications. Fibroscan Results: Median kPa: 18.2 Mean IQR: 10% (goal is <30 %) Number of valid measurements: 11 (at least 10 required) Number of invalid measurements: 0 Predicted fibrosis stage: F4 CAP (dB/m): 369 Estimated steatosis grade: 3/3 % hepatocytes affected: > 66% XL probe used Interpretation: Based on this Fibroscan result, history, clinical examination and review of laboratory and radiological data, this patient likely has stage 4 liver fibrosis and grade 3 steatosis affecting greater than 66% of hepatocytes. documented in this encounter Plan of Treatment Not on file documented as of this encounter Procedures Procedure Name Priority Date/Time Associated Diagnosis Comments [id number] Routine 11/07/2022 7:00 AM EST Elevated liver enzymes Fatty liver documented in this encounter Results * [id number] (11/07/2022 7:00 AM EST) Narrative Jose Enrique Mcghee PA - 11/07/2022 7:00 AM EST Jose Enrique Mcghee PA ? 11/07/2022 ??7:20 AM [facility] Liver Fibrosis Assessment Report Indication: ?? Elevated LFTs, fatty liver, indeterminate FIB-4 score Performed by: ??GIRISH Guillen Procedure: Vibration Controlled Transient Elastography (VCTE) or Fibroscan [place] Protocol: Patient's identity, procedure and site were verified, confirmatory pause performed. Discussed procedure including risks and potential complications. Questions answered. Patient verbalizes understanding and wishes to proceed with Fibroscan assessment. Patient was placed in the supine position with right arm in maximum abduction to allow optimal exposure of right lateral abdomen. Patient was briefly assessed. Testing was performed in the mid-axillary location. 50Hz Shear Wave pulses were applied and the resulting Shear Wave and Propagation Speed was detected with a 3.5MHz ultrasonic signal, using the Fibroscan probe. Skin to liver capsule distance and liver parenchyma were accessed during the entire examination with the Fibroscan probe. Patient was instructed to breathe normally and abstain from sudden movements during the procedure. At least ten Sheer Waves were produced; individual measurements of each Shear Wave were calculated. Patient tolerated the procedure well with no complications. Fibroscan Results: Median kPa: 18.2 Mean IQR: 10% (goal is <30 %) Number of valid measurements: 11 (at least 10 required) Number of invalid measurements: 0 Predicted fibrosis stage: F4 CAP (dB/m): 369 Estimated steatosis grade: 3/3 % hepatocytes affected: > 66% XL probe used Interpretation: Based on this Fibroscan result, history, clinical examination and review of laboratory and radiological data, this patient likely has stage 4 liver fibrosis and grade 3 steatosis affecting greater than 66% of hepatocytes. Genesis Mills MD PROCEDURE/MINOR SURG ICAL ORDERABLES documented in this encounter Visit Diagnoses Diagnosis Elevated liver enzymes Nonspecific elevation of levels of transaminase or lactic acid dehydrogenase (LDH) Fatty liver Other chronic nonalcoholic liver disease documented in this encounter Care Teams Plant Anatomist Relationship Specialty Start Date End Date Griselda Vides APRN PCP - General Family Medicine 10/18/22 documented as of this encounter
--- OUTSIDE RECORDS SUMMARY | 2024-05-13 01:06 | XMS_ITS | Encounter Summary ---
Author Organization [facility] Address [address] [place] [address] Care Team Providers Care Staffing Director Name Role Phone Andre Mcmullen MD Primary Care Provider [phone] Encounter Details Date Type Department Care Team (Late st Contact Info) Description 12/21/2020 Lab Requisition [facility] Pathology & Laboratory Medicine - [facility] [address] [place] [address] Mukesh Jean MD [address] [place] [id number] Encounter for other general examination Social History Tobacco Use Types Packs/Day Years [...] Date/Time Associated Diagnosis Comments SURGICAL PATHOLOGY Today 12/20/2020 12 :20 EST Encounter for other general examination documented in this encounter Results * SURGICAL PATHOLOGY (12/20/2020 12:20 EST) Final Diagnosis A. COLON, ASCENDING, POLYP, BIOPSY: - Tubular adenoma. B. COLON, TRANSVERSE, POLYP, BIOPSY: - Tubular adenoma. C. COLON, DESCENDING, POLYPS X2, BIOPSY: - Tubular adenomas. 12/22/2020 14:31 EST [facility] Attestation By the signature below, the attending physician certifies that they have 1) personally conducted a gross and/or microscopic examination of the described specimen(s), and/or personally interpreted the results of laboratory testing of the described specimen(s), and 2) personally rendered or confirmed the above diagnosis. 12/22/2020 14:31 [facility] at 1431 Clinical History History of polyps 12/22/2020 14:31 [facility] Gross Description A. Received in formalin labelled with proper patient identification (initials F, G) and ascending colon polyp are 3 fragments of pink-granados soft tissue (ranging from 0.4 cm to 0.6 cm in greatest dimension). The specimen is entirely submitted in A1. B. Received in formalin labelled with proper patient identification (initials F, G) and transverse colon polyp are 2 fragments of granados soft tissue (0.2 x 0.2 x 0.2 cm and 0.3 x 0.2 x 0.2 cm). The specimen is entirely submitted in B1. C. Received in formalin labelled with proper patient identification (initials F, G) and descending colon polyps x2 are 3 fragments of granados soft tissue (ranging from 0.3 cm to 0.6 cm in greatest dimension). The specimen is entirely submitted in C1. GIRISH KAUFMAN(ASCP) 12/21/2020 16:16 12/22/2020 14:31 [facility] Performing Lab [facility] 12/22/2020 14:31 [facility] Scanned Images 12/22/2020 14:31 [facility] Tissue POLYP OF COLON / Unknown 12/20/2020 12:20 EST 12/21/2020 15:50 EST Tissue specimen (specimen) POLYP OF COLON / Unknown 12/20/2020 12:20 EST 12/21/2020 15:50 EST Tissue specimen (specimen) POLYP OF COLON / Unknown 12/20/2020 12:20 EST 12/21/2020 15:50 EST Mukesh Jean MD PATHOLOGY ORDERA BLES [facility] [address] [place] [address] documented in this encounter Visit Diagnoses Diagnosis Encounter for other general examination documented in this encounter Additional Health Concerns Infection Onset Date Last Indicated Resolved Time COVID-19 02/22/2021 02/22/2021 03/24/2021 22:1 5 EDT documented as of this encounter Care Teams Staffing Director Relationship Specialty Start Date End Date Andre Mcmullen MD PCP - General 11/07/11 documented as of this encounter
--- OUTSIDE RECORDS SUMMARY | 2024-05-13 01:06 | XMS_ITS | Referral Summary ---
Author Organization [facility] Address [address] [place] [address] Care Team Providers Care Frozen Food Selector Name Role Phone Andre Mcmullen MD Primary Care Provider [phone] Social History Tobacco Use Types Packs/Day Years Used Date Smoking Tobacco: Never Assessed Interpersonal Safety Answer Date Record ed Physically Hurt Never 05/23/2020 Verbally Threaten Not on file 05/23/2020 Sex and Gender Information Value Date Recorded Sex Assigned at Not on file Gender Identity Not on file Sexual Orientation Not on file Plan of Treatment Not on file Care Teams Frozen Food Selector Relationship Specialty Start Date End Date Andre Mcmullen MD PCP - General 11/07/11
--- OUTSIDE RECORDS SUMMARY | 2024-05-13 01:06 | XMS_ITS | Encounter Summary ---
[place] [address] Care Team Providers Care Apple Sorter Name Role Phone Griselda Vides APRN Primary Care Provider [phone] Reason for Referral * Consultation (Routine) - Closed Specialty Diagnoses / Procedures Referred By Fide santizo Referred To Contact Gastroenterology Diagnoses Abnormal levels of other serum enzymes Abnormal levels of other serum enzymes Procedures FIBROSCAN Erik Francis MD [address] [address] [facility] [place] [address] Referral ID Status Reason Start Date Expiration Date V isits Requested Visits Authorized [id number] Closed Test Only PCP Updated and/or Approved 10/18/2022 10/18/2023 6 6 Encounter Details Date Type Department Care Team (Late st Contact Info) Description 10/18/2022 Transcribe Orders eDH Incoming Referrals [phone] Erik Francis MD [address] [address] Abnormal levels of other serum enzymes Social History Tobacco Use Types Packs/Day Years Used Date Smoking Tobacco: Never Assessed Sex and Gender Information Value Date Recorded Sex Assigned at Not on file Gender Identity Not on file Sexual Orientation Not on file documented as of this encounter Plan of Treatment Scheduled Referrals Name Type Priority Associated Diagnoses Order Schedule Referral to Gastroenterology Outpatient Referral Routine Abnormal levels of other serum enzymes Ordered: 10/18/2022 documented as of this encounter Visit Diagnoses Diagnosis Abnormal levels of other serum enzymes documented in this encounter Care Teams Apple Sorter Relationship Specialty Start Date End Date Griselda Vides APRN PCP - General Family Medicine 10/18/22 documented as of this encounter
--- OUTSIDE RECORDS SUMMARY | 2024-05-13 01:06 | XMS_ITS | Encounter Summary ---
Author Organization [facility] Address [address] [place] [address] Care Team Providers Care Ball Point Splitter Name Role Phone Andre Mcmullen MD Primary Care Provider [phone] Encounter Details Date Type Department Care Team (Late st Contact Info) Description 02/22/2021 Lab Requisition [facility] Pathology & Laboratory Medicine - [facility] [address] [place], [place] [address] Outr Resulting Lab, Provider Social History Tobacco Use Types Packs/Day Years [...] Procedure Name Priority Date/Time Associated Diagnosis Comments ZZCOVID-19 TEST [facility] PCR Today 02/22/2021 8:30 EDT COVID-19 TESTING Routine 02/22/2021 8:30 EDT documented in this encounter Results * COVID-19 TEST [facility] PCR (02/22/2021 8:30 EDT) Swab ENTIRE NASOPHARYNX / Unknown 02/22/2021 8:30 EDT 02/22/2021 16:37 EDT Provider Outr Resulting Lab MICROBIOLOGY - GENERAL ORDERABLES [facility] [address] [place] [address] * (ABNORMAL) COVID-19 TESTING (02/22/2021 8:30 EDT) COVID-19 rt-PCR Result Positive( AA) Negative 02/23/2021 13:04 EDT [facility] Comment: This test has not been FDA cleared or approved. This test has been authorized by FDA under an EUA for use by authorized laboratories. This test has been authorized only for detection of nucleic acid from 2019-nCoV, not for any other viruses or pathogens. This test is only authorized for the duration of the declaration that circumstances exist justifying the authorization of emergency use of in vitro diagnostic tests for detection and/or diagnosis of 2019-nCoV under section 564(b)(1) of Act, 21 U.S.C ?? 360bbb-3(b) (1), unless the authorization is terminated or revoked sooner. Testing was performed using the gisela SARS-CoV-2 assay ([employer] on the Gisela 6800 System Performing Lab Gisela [address] [facility] 02/23/2021 13:04 EDT [facility] Swab 02/22/2021 8:30 EDT 02/22/2021 16:37 EDT Provider Outr Resulting Lab MICROBIOLOGY - GENERAL ORDERABLES [facility] [address] [place] [address] documented in this encounter Visit Diagnoses Not on filedocumented in this encounter Additional Health Concerns Infection Onset Date Last Indicated Resolved Time COVID-19 02/22/2021 02/22/2021 03/24/2021 22:1 5 EDT documented as of this encounter Care Teams Ball Point Splitter Relationship Specialty Start Date End Date Andre Mcmullen MD PCP - General 11/07/11 documented as of this encounter
--- NOTE | 2024-05-13 08:00 | DI.CTLCSR_ITS ---
Exam(s) CT CHEST LUNG CANCER SCREEN EXAM: CT CHEST LUNG CANCER SCREEN CLINICAL HISTORY: Screening for lung cancer,former smoker, z87.891 TECHNIQUE: Imaging Protocol: Axial computed tomography images with coronal and sagittal reformatted images were created and reviewed COMPARISON: CT CT CHEST PE CTA from 02/28/2021 FINDINGS: Tracheobronchial tree: Patent where visualized. No bronchiectasis. Pulmonary parenchyma: No consolidation or dominant measurable mass. No architectural distortion. Lung Nodules: None. Mediastinum and Helga: No dominant adenopathy or fluid collection. The esophagus is unremarkable. Thyroid gland: Unremarkable. Lymph nodes: Unremarkable. Pleura: No effusion or pneumothorax. Heart: The heart is not dilated. No coronary artery calcifications are seen. No pericardial effusion . Aorta: Thoracic aorta non-dilated.Atherosclerotic calcification is present. Upper abdomen: Unremarkable. Soft Tissues: Unremarkable. Bones: Within normal limits. IMPRESSION: No pulmonary nodules. Lung RADS Cat 1 - Negative: No nodules and definitely benign nodules Lung-RADS 1.0 CATEGORIES: Category 0 - Prior chest CT exam(s) being located for comparison. Category 1 - Annual screening in 12 months. No nodules or definitely benign nodules. Category 2 - Annual screening in 12 months. Benign appearance. Nodules with low likelihood of becomin g active cancer. Category 3 - 6-month follow-up. Probably benign. Short-term follow-up suggested. Nodules with low lik elihood of becoming active cancer. Category 4A - 3-month follow-up and CT/PET if >8 mm in size. Suspicious finding. Findings which requi re additional testing. Category 4B - Findings which require additional testing and tissue sampling. Suspicious finding. Category 4X - Category 3 or 4 nodules with additional features or imaging findings that increases the suspicion of malignancy. Modifier S- Potentially clinically significant finding. (Non lung cancer) RADIATION DOSE DELIVERED: Total DLP Total DLP DATA REPOSITORY: All CT scans at this facility are submitted to the National Radiology Data Registry (NRDR) Dose Index Registry (DIR) with the [employer] (ACR). RADIATION OPTIMIZATION: All CT scans at this facility use at least one of these dose optimization te chniques: automated exposure control; mA and/or kV adjustment per patient size (includes targeted exa ms where dose is matched to clinical indication); or iterative reconstruction.
== END ==
PROVIDERS: PCP Family Medicine; Visit Provider Family Medicine
DX: Z87.891 Personal history of nicotine dependence (principal)
CPT/HCPCS: 71271

== ENCOUNTER 2024-09-12 09:22 | Day surgery (SDC) | payer MEDICAID, SELFPAY ==
--- NOTE | 2024-09-11 20:47 | W.COLOREPORT ---
Colonoscopy Report Pre-op diagnosis general: Adenomatous polyps Surgeon: Paulette Dasilva Anesthesia Type: General:No Airway Complications: None Disposition: same day Prep: Miralax/Dulcolax Procedure Description: After informed consent was obtained, explaining risks of the procedure, including but not limits to: bleeding, infections, complications of anesthesia, perforations (which may require antibiotics and /or surgery and stay in the hospital), and abdominal pain/cramping. The patient was taken to the procedure room and placed in a left decubitous position. Monitors were applied and a time out was done. The patients name, date of , procedure, allergies to medications and metal in their body was reviewed. The patient was then sedated. Once sedated and comfortable a rectal exam was done. External exam was normal. Internal exam revealed a normal sphincter tone and no palpable masses. The prostate []. The previously lubricated Olympus scope was then introduced (see RN notes for scope number) and retrofelexed. [] internal hemorrhoids were identified. The scope was then advanced to the cecum without difficulty. The TI and appendiceal orifice were identified. The scope was then slowly retracted over [] minutes back into the rectum. Polyps: [] Diverticula: [] The mucosa is pink and healthy w/ a normal vascular pattern. The scope was removed, and the patient was woken up and taken back to Same day surgery in stable condition. The patient tolerated the procedure well and there were no immediate complications. Follow up: The patient should follow up in [] years, unless they develop changes in bowel habits or other new gastrointestinal complaints.
--- NOTE | 2024-09-11 20:48 | PDOC.DSDIS_ITS ---
Discharge Plan Disposition Patient Disposition: Home Discharge Details Reason For Visit: colon cancer screening Attending Provider: Paulette Dasilva Primary Care Provider: Bharat Osei Home Meds and New Rx's Prescriptions: Continued (DME) blood-glucose meter Misc See Rx Instructions .ROUTE .MEDSUPPLY Qty: 1 0RF Rx Instructions: E11.65 to check daily for goal A1C <8% diclofenac sodium [Voltaren] 1 % gel 2 - 4 g topical QID PRN (Reason: pain) Qty: 100 3RF Rx Instructions: 2G for upper extremity joints; 4G for lower extremity joints bupropion HCl [Wellbutrin XL] 300 mg tablet extended release 24 hr 300 mg PO DAILY Qty: 90 3RF nystatin 15 GM cream 15 gm Topical PRN (DME) lancets Misc See Rx Instructions .ROUTE .MEDSUPPLY Qty: 200 3RF Rx Instructions: BID with insulin & victoza for E11.65 and goal A1C less than 8% metformin 1,000 mg tablet 1,000 mg PO BID Qty: 180 3RF Rx Instructions: For diabetes citalopram 40 mg tablet 40 mg PO HS Qty: 90 3RF simvastatin 40 mg tablet 40 mg PO QPM Qty: 90 3RF hydroxyzine HCl 50 mg tablet 50 mg PO BID PRN (Reason: anxiety) Qty: 180 3RF insulin glargine [Lantus Solostar U-100 Insulin] 100 unit/mL (3 mL) insulin pen 20 unit subcut DAILY Qty: 18 3RF (DME) FreeStyle Lite Strips Strip See Rx Instructions .Route Qty: 100 3RF Rx Instructions: To check blood glucose twice daily. On insulin, Diabetes Mellitus, with A1C <7. pantoprazole 40 mg tablet,delayed release (DR/EC) 40 mg PO QAM Qty: 90 3RF Rx Instructions: Take on an empty stomach, at least 20-30 minutes before first meal (DME) pen needle, diabetic [BD Ultra-Fine Anisha Pen Needle] 32 gauge x 5/32 needle See Rx Instructions .ROUTE .MEDSUPPLY Qty: 200 3RF Rx Instructions: BID with insulin & victoza for E11.65 and goal A1C less than 8% liraglutide 0.6 mg/0.1 mL (18 mg/3 mL) pen injector 1.2 mg subcut DAILY Qty: 18 3RF multivitamin Capsule 1 cap PO .QD Discontinued bisacodyl [Dulcolax (bisacodyl)] 5 mg tablet,delayed release (DR/EC) 5 mg PO ONCE Qty: 4 0RF Rx Instructions: Take per colonoscopy instructions provided by ordering providers office polyethylene glycol 3350 17 gram/dose powder 17 g PO ONCE Qty: 238 0RF Rx Instructions: Take per colonoscopy instructions provided by ordering providers office Discharge Instructions Additional Instructions: DSU Colonoscopy Post- Op Instructions Instructions for Everyone who is given Anesthe kaur: For your safety, please do the following for the next twenty-four (24) hours: *Do Not operate a motor vehicle (car, truck, motorcycle, etc.) *Do Not drink alcoholic beverages or use any recreational drugs for the first 24 hours or while taking pain medications. The medications in your body may have a reaction that can be dangerous. *Do Not make any important decisions or sign any important papers. Findings: Follow up: 1. No lifting over 20 pounds or strenuous activity for the first 24 hours after your procedure. After 24 hours there are no restrictions on your activity but you may feel fatigued for a few days. 2. After you arrive home you may have a light meal and return to your normal diet as you can tolerate it without feeling sick to your stomach. 3. You may have a bloated, gaseous feeling in your belly (abdomen) after a colonoscopy. Passing gas and belching will help. Walking or lying down on your left side with your knees flexed may relieve the discomfort. Call the office at [phone] (Office) or [phone] (Hospital) right away if you notice any of the following: a.Vomiting of blood or ?coffee ground stools?. b.Rectal bleeding 1Tbsp, blood clots or continuous bleeding. c.Severe belly (abdominal) pain. d.A hard distended belly (abdomen) and an inability to pass gas. 4. Please don?t expect to have a normal BM (bowel movement) for 2-3 days after your procedure. 5. If there are questions regarding the findings of your procedure, please contact your doctor 6. If you are unable to contact your doctor with a problem, contact the hospital at [phone]. 7. Continue all your regular medications unless directed otherwise. I understand the above instructions and have no questions. Signature of Patient or Adult Escort Name of Responsible Adult Escort Signature of Nurse Date/Time Activity:: see above Diet:: see above Discharge Orders Discharge Orders: Discharge Order (Routine); Ordered 09/12/24 Ordered By: Paulette Dasilva DS: Diagnosis Discharge Diagnosis (1) Diverticulosis: Status: Chronic Asessment and Plan: The patient is seen and examined after their colonoscopy.? The patient has been able to pass gas.? They are not having abdominal pain.? They have been able to tolerate liquids and a snack.? They do not have any nausea or vomiting.? They are not having any chest pain or shortness of breath.??? They are not having any rectal bleeding. Their vital signs have been stable-see nursing notes. We discussed findings during their colonoscopy, and any biopsies that were done/polyps that were removed. The patient will be sent a letter with any biopsy results, and when to repeat the colonoscopy.-see discharge instructions. Patient was given explicit instructions to follow-up regarding colonoscopy-refer to discharge instructions.? We reviewed resumption of medications. Patient verbalized understanding and discharged in stable and satisfactory condition- See nursing notes. (2) History of colon polyps: Status: Acute (3) Obstructive sleep apnea: Status: Chronic (4) Gastroesophageal reflux disease: Status: Chronic (5) Type 2 diabetes mellitus: Status: Chronic
[2024-09-12 10:20] VITALS: BP 118/78; PULSE 111; RESP 20; TEMP 37.8; O2SAT 97
--- NOTE | 2024-09-12 10:52 | PDOC.ANES ---
Date of service: 09/12/24 Time of Service: 10:53 Anesthesia Note Report Anesthesia Note: Preop RN notified me of patient with 37.8C fever and was tachycardic at 110 [address] in bed with a sore throat. I engaged with Gene and auscultated heart and lungs which were normal other than heart tachycardic. Patient reports sore throat but feels it was his miralax. Discussed case with Dr. Dasilva and Rosanna Amador, NEWBORN PHOTOGRAPHER; decision that patient should be postponed. I discussed with the patient at length, all questions answered. Patient can reschedule with the office at his convenience.
== END 2024-09-12 09:23 | disposition home or self-care (01) ==
LOC: SUR 09:23
PROVIDERS: PCP Family Medicine; Visit Provider Surgery
DX: Z53.9 Procedure and treatment not carried out, unspecified reason (principal)

== ENCOUNTER 2025-01-09 08:54 | Day surgery (SDC) | payer MEDICAID, SELFPAY ==
[2025-01-09 09:18] VITALS: BP 120/83; PULSE 102; RESP 22; TEMP 36.8; O2SAT 97
[2025-01-09] MEDS: Lactated Ringers 1,000 ML 80 ML IV (10:00)
--- NOTE | 2025-01-09 10:42 | ANES.PREOP_ITS ---
General Info Date of Service Date Performed: 01/09/25 Height: 5 ft 9 in Weight: 104.5 kg Body Mass Index (BMI): 34.0 Surgical Procedure: Operation Date: 01/09/25 10:50 Proposed Procedure Side Surgeon jenny Dukes MD Meds Allergies and Home Medications Allergies Allergy/AdvReac Type Severity Reaction Status Date / Time soap Allergy Intermediate Other (See Verified 01/09/25 09:42 Comment) [facility] AdvReac headaches Verified 01/09/25 09:42 Home Medication ?Medication ?Instructions ?Recorded nystatin 100,000 unit/gram topical 15 gm topical PRN 03/22/17 cream blood-glucose meter #1 ea 11/06/19 lancets #200 ea 12/15/19 diclofenac sodium 1 % topical gel 2 - 4 g topical QID PRN pain #100 12/24/20 (Voltaren) grams hydroxyzine HCl 50 mg tablet 50 mg PO BID PRN anxiety #180 tabs 02/14/24 simvastatin 40 mg tablet 40 mg PO QPM #90 tab-caps 02/14/24 insulin glargine 100 unit/mL (3 20 unit (0.2 mL) subcut DAILY Dx: 03/25/24 mL) subcutaneous pen (Lantus E11.9 to maintain HbA1c less than Solostar U-100 Insulin) 7% #18 SYRGS multivitamin 1 cap PO .QD 04/28/24 blood sugar diagnostic (FreeStyle #100 ea 06/09/24 Lite Strips) pantoprazole 40 mg tablet,delayed 40 mg PO QAM #90 tab-caps 06/19/24 release pen needle, diabetic 32 gauge x #200 ea 07/07/24 (BD Ultra-Fine Anisha Pen Needle) liraglutide 0.6 mg/0.1 mL (18 mg/3 1.2 mg (0.2 mL) subcut DAILY #18 mL 09/05/24 mL) subcutaneous pen injector citalopram 40 mg tablet 40 mg PO HS #90 tabs 11/20/24 metformin 1,000 mg tablet 1,000 mg PO BID #180 tabs 11/20/24 bisacodyl 5 mg tablet,delayed 5 mg PO ONCE #4 tabs 12/18/24 release (Dulcolax (bisacodyl)) polyethylene glycol 3350 17 17 g PO ONCE #238 grams 12/18/24 gram/dose oral powder bupropion HCl 300 mg 24 hr tablet, 300 mg PO HS #90 tabs 12/30/24 extended release (Wellbutrin XL) Current Visit Medications: Current Medications Generic Name Dose Route Start Last Admin Trade Name Freq PRN Reason Stop Dose Admin Ringer's Solution 1,000 mls @ 80 mls/hr 01/09/25 06:00 01/09/25 10:00 IV 01/09/25 23:59 80 mls/hr INFUSION SUZAN Administration IV Miscellaneous Supplies 1 each 01/09/25 06:00 Iv Access IV 01/09/25 23:59 DIRECTED SUZAN Sodium Chloride 0 ml 01/09/25 06:00 Normal Saline Flush 10 Ml Syr IV 01/09/25 23:59 PRN PRN Sodium Chloride 0 ml 01/09/25 06:00 Normal Saline 10 Ml Vial IJ 01/09/25 23:59 DIRECTED PRN Sterile Water 0 ml 01/09/25 06:00 Water,Injection,Sterile 10 Ml Vial IJ 01/09/25 23:59 DIRECTED PRN PFSH Active Problems Active Problems: Problem Status Onset Code History of total right hip replacement Acute 10/23/23 Z96.641 Cirrhosis Chronic K74.60 History of colon polyps Acute Z86.010 Type 2 diabetes mellitus Chronic ~10/2019 E11.9 COPD (chronic obstructive pulmonary disease) Chronic J44.9 Anxiety and depression Chronic F41.9, F32.9 Right hip pain Acute M25.551 Obesity (BMI 30-39.9) Chronic E66.9 Diverticulosis Chronic K57.90 Chronic back pain Chronic M54.9, G89.29 Chronic pain of both knees Chronic M25.561, M25.562, G89.29 Gastritis Resolved 10/09/11 K29.70 Gastroesophageal reflux disease Chronic K21.9 Generalized osteoarthritis Chronic 02/21/18 M15.9 Hyperlipidemia, unspecified Chronic E78.5 Obstructive sleep apnea Chronic 10/04/17 G47.33 Seborrheic dermatitis Chronic L21.9 Medical History Medical History Anemia COVID-19 Tubular adenoma of colon Achilles tendinitis, right leg Paul's deformity of right heel Suicide attempt Pancreatitis (01/23/18) Tobacco use disorder QUIT 03/2018 Surgical History Surgical History Hx of cataract extraction [place] teeth extracted History of colonoscopy (~10/09/19) hand surgery Skin removed between fingers on his left hand (1993) EGD (~09/2019) 2010 Duodenitis, gastritis Extraction of cataract removal, insert prosthetic lens (10/19/2015):Left removal, insert prosthetic lens (06/23/2014):Right Tobacco Smoking/Tobacco Use Status: Former Tobacco Use Alcohol Alcohol Intake: current Alcohol intake frequency: holidays/special occasions only Substance Use Substance use: Occasionally Substance use type: marijuana Vital Signs and Lab Results Vital Signs Most Recent Vital Signs in EMR: Most Recent Vital Signs Temp Pulse Resp BP Pulse Ox 36.8 C 102 H 22 120/83 97 01/09/25 09:18 01/09/25 09:18 01/09/25 09:18 01/09/25 09:18 01/09/25 09:18 Point of Care Results Point of Care Results: Finger Stick Blood Glucose 113 01/09/25 09:24 Lab Results Blood Type / Crossmatch: No Data to Display Complete Blood Count: No Data to Display Complete Metabolic Panel: No Data to Display Liver Function Panel: No Data to Display Coagulation Panel: No Data to Display Cardiac Panel: No Data to Display Arterial Blood Gas: No Data to Display Venous Blood Gas: No Data to Display Pancreas Panel: No Data to Display Thyroid Panel: 2 No Data to Display Infectious Disease: No Data to Display Blood Cultures: No Data to Display Toxicology Panel: No Data to Display Imaging and Studies Imaging and Studies Study information below may be from another EMR and interpreted by another provider. Please see original notes in EMR for more complete details. EKG Summary: 02/28/21: Exam: Resting ECG Reason for Exam: chest pain Patient Location: E HR:76 bpm ECG Measurements Heart Rate 76 AXIS DC 178 P 46 QRSd 114 QRS 54 QT 444 T27 QTc 499 Conclusion Sinus rhythm...normal P axis, V-rate 60- 99 I have reviewed and I agree with the emergency room physician's ECG interpretation. Stress Test Summary: 07/24/2019: Stress ECG Conclusion 1. Normal hemodynamic response to pharmacologic stress. 2. ECG: Non-ischemic 3. Imaging: Non-ischemic 4. This represents a normal stress test Pulmonary Function Summary: 02/12/2019: INTERPRETATION OF STUDY Spirometry shows mild obstructive airways disease with no bronchodilator response. LUNG VOLUMES - Lung volumes show no evidence of restriction. DIFFUSION CAPACITY- Normal. AIRWAY RESISTANCE - Normal. IMPRESSION Mild obstructive airways disease with no significant bronchodilator response. Clinical correlation recommended. Anesthesia Assessment and Plan Anesthesia History Personal History: No History of Anesthesia Complications Family History: No Family History of Anesthesia Complications Exercise Tolerance Exercise Tolerance: Metabolic Equivalents>4 Pertinent Negatives Pertinent Negatives: No Major Cardiovascular Symptoms or Complaints and No Major Pulmonary Symptoms or Complaints Cardiac & Pulmonary Exam Cardiac Exam: Normal S1/S2 Heart Sounds Pulmonary Exam: Clear Bilateral Breath Sounds Implantable Cardiac Device Does patient have a Pacemaker or an ICD?: No Airway Exam Known Difficult Airway: No Mallampati Class: 2 Mouth Opening: Normal (> 3cm) Thyromental Distance: Greater than 3 cm Neck Range of Motion: Full ROM Neck Circumference: Normal Teeth Condition: Edentulous ASA Classification ASA Score: ASA 2 Emergency Case?: No NPO Status NPO Status: NPO Clears >2 hours, Solids >8 hours Anesthesia Plan Resuscitation Status: Full Code Anesthesia Technique: General Anesthesia Airway Planned: Natural Airway Monitors Used: Standard Monitors
[2025-01-09 11:04] VITALS: BMI 34.0
--- NOTE | 2025-01-09 11:33 | W.COLOREPORT ---
Date of service: 01/09/25 Time of Service: 11:33 Colonoscopy Report Date of procedure: 01/09/25 Pre-op diagnosis general: Previous history of colon polyps Post-op diagnosis procedure note: same Procedure: Colonoscopy Surgeon: Tonya Dukes Anesthesia Type: General:No Airway Estimated blood loss (mL): 0 Pathology: none sent Complications: None Disposition: same day Indications: Previous history of colon polyps Findings: No polyps were visualized, bowel prep was poor with large retained food fragments in the proximal Procedure Description: After the risks, benefits, and alternatives of the procedure were thoroughly explained, informed consent was obtained. The Patient is brought to the procedure room and time out is performed confirming patient identity, nature of procedure. Patient is connected to monitoring devices including O2 sat, EKG and given supplemental oxygen per anesthesia. After appropriate anesthetic is obtained, patient is placed in the left lateral decubitus position and digital rectal exam performed with the findings noted . The colonoscope is inserted through the anus and guided under direct vision to the proximal colon as confirmed by presence of the appendiceal orifice and the ileocecal valve. The colonoscope is then slowly withdrawn , inspecting all aspects of the mucosa completely. Findings and any associated intervention, are noted above. The colonoscope was then completely withdrawn from the patient and the procedure terminated. The patient tolerated the procedure well and is transferred back to the Day surgery unit in stable condition.
--- NOTE | 2025-01-09 11:35 | W.PM.DSUDISC ---
Date of service: 01/09/25 Discharge Plan Disposition Patient Disposition: Home Discharge Details Attending Provider: Tonya Dukes Primary Care Provider: Bharat Osei Home Meds and New Rx's Prescriptions: No Action (DME) blood-glucose meter Misc See Rx Instructions .ROUTE .MEDSUPPLY Qty: 1 0RF Rx Instructions: E11.65 to check daily for goal A1C <8% diclofenac sodium [Voltaren] 1 % gel 2 - 4 g topical QID PRN (Reason: pain) Qty: 100 3RF Rx Instructions: 2G for upper extremity joints; 4G for lower extremity joints metformin 1,000 mg tablet 1,000 mg PO BID Qty: 180 3RF Rx Instructions: For diabetes citalopram 40 mg tablet 40 mg PO HS Qty: 90 3RF bisacodyl [Dulcolax (bisacodyl)] 5 mg tablet,delayed release (DR/EC) 5 mg PO ONCE Qty: 4 0RF Rx Instructions: Take per colonoscopy instructions provided by ordering providers office polyethylene glycol 3350 17 gram/dose powder 17 g PO ONCE Qty: 238 0RF Rx Instructions: Take per colonoscopy instructions provided by ordering providers office nystatin 15 GM cream 15 gm Topical PRN (DME) lancets Misc See Rx Instructions .ROUTE .MEDSUPPLY Qty: 200 3RF Rx Instructions: BID with insulin & victoza for E11.65 and goal A1C less than 8% simvastatin 40 mg tablet 40 mg PO QPM Qty: 90 3RF hydroxyzine HCl 50 mg tablet 50 mg PO BID PRN (Reason: anxiety) Qty: 180 3RF insulin glargine [Lantus Solostar U-100 Insulin] 100 unit/mL (3 mL) insulin pen 20 unit subcut DAILY Qty: 18 3RF (DME) FreeStyle Lite Strips Strip See Rx Instructions .Route Qty: 100 3RF Rx Instructions: To check blood glucose twice daily. On insulin, Diabetes Mellitus, with A1C <7. pantoprazole 40 mg tablet,delayed release (DR/EC) 40 mg PO QAM Qty: 90 3RF Rx Instructions: Take on an empty stomach, at least 20-30 minutes before first meal (DME) pen needle, diabetic [BD Ultra-Fine Anisha Pen Needle] 32 gauge x 5/32 needle See Rx Instructions .ROUTE .MEDSUPPLY Qty: 200 3RF Rx Instructions: BID with insulin & victoza for E11.65 and goal A1C less than 8% liraglutide 0.6 mg/0.1 mL (18 mg/3 mL) pen injector 1.2 mg subcut DAILY Qty: 18 3RF bupropion HCl [Wellbutrin XL] 300 mg tablet extended release 24 hr 300 mg PO HS Qty: 90 3RF multivitamin Capsule 1 cap PO .QD Discharge Instructions Additional Instructions: Your colonoscopy today was normal. Because of your previous history of multiple adenomatous polyps, we do require another repeat colonoscopy in 5 years. Your bowel prep was poor so you should make a greater effort to clean yourself out next time. Discharge Orders Discharge Orders: Discharge Order (Routine); Ordered 01/09/25 Ordered By: Tonya Dukes Discharge Data Discharge Date/Time-TO BE ENTERED AT DEPARTURE: 01/09/25 11:36
[2025-01-09 12:10] VITALS: BP 121/75; PULSE 83; RESP 16; TEMP 36.3; O2SAT 96
--- NOTE | 2025-01-09 12:49 | W.ANESPOSTOP ---
Postoperative Evaluation Date, Time and Location Date Performed: 01/09/25 Time Performed: 11:40 Patient Location: Day Surgery Unit Vital Signs Most Recent Imported Vital Signs: Most Recent Vital Signs Temp Pulse Resp BP Pulse Ox 36.3 C L 83 16 121/75 96 01/09/25 12:10 01/09/25 12:10 01/09/25 12:10 01/09/25 12:10 01/09/25 12:10 Pain Score Most Recent Pain Score: Most Recent Pain Score Pain Level 0 01/09/25 12:10 Assessment Mental Status: Awake (Alert & Oriented to Patient Baseline) Airway and Respiratory Function: Patent airway with normal (patient baseline) respiratory exam Cardiovascular Function: Hemodynamically Stable Hydration Status: Adequately Hydrated Nausea & Vomiting: No Nausea or Vomiting Pain: Pt. Denies Any Pain Peripheral Nerve Block: Patient did not receive a nerve block
== END 2025-01-09 13:20 | disposition home or self-care (01) ==
PROVIDERS: PCP Family Medicine; Visit Provider Surgery
PROC: 0DJD8ZZ Inspection of Lower Intestinal Tract, Via Natural or Artificial Opening Endoscopic (ICD-10-PCS; CPT 45378; principal; 2025-01-09 10:45)
DX: Z86.0101 Personal history of adenomatous and serrated colon polyps (principal); Z12.11 Encounter for screening for malignant neoplasm of colon
CPT/HCPCS: 45378; J2003; J2704

== ENCOUNTER 2025-06-04 01:51 | Outpatient (CLI) | payer MEDICAID, SELFPAY ==
--- NOTE | 2025-06-04 06:45 | DI.CTLCSR_ITS ---
Exam(s) CT CHEST LUNG CANCER SCREEN EXAM: CT CHEST LUNG CANCER SCREEN CLINICAL HISTORY: Screening for lung cancer,former tobacco use,z87.891 TECHNIQUE: Imaging Protocol: Axial computed tomography images with coronal and sagittal reformatted images were created and reviewed. Low dose screening protocol. COMPARISON: CT CT CHEST PE CTA from 02/28/[address] CHEST LUNG CANCER SCREEN from 05/13/2024 FINDINGS: Tracheobronchial tree: No bronchiectasis or mucus plugging. Mediastinum and Helga: No dominant adenopathy or fluid collection. Pulmonary parenchyma: No consolidation or dominant measurable mass. Mild emphysematous changes. No significant interstitial changes. Lung Nodules: None. Pleura: No effusion. No pneumothorax. Heart: The heart is not dilated. No coronary artery calcifications are seen. No pericardial effusion. Aorta: Thoracic aorta non-dilated. Upper abdomen: Unremarkable. Bones: Unremarkable for age. Soft Tissues: Unremarkable. IMPRESSION: No suspicious pulmonary nodules. Lung RADS Cat 1 - Negative: No nodules and definitely benign nodules Lung-RADS 1.0 CATEGORIES: Category 0 - Prior chest CT exam(s) being located for comparison. Category 1 - Annual screening in 12 months. No nodules or definitely benign nodules. Category 2 - Annual screening in 12 months. Benign appearance. Nodules with low likelihood of becoming active cancer. Category 3 - 6-month follow-up. Probably benign. Short-term follow-up suggested. Nodules with low likelihood of becoming active cancer. Category 4A - 3-month follow-up and CT/PET if >8 mm in size. Suspicious finding. Findings which require additional testing. Category 4B - Findings which require additional testing and tissue sampling. Category 4X - Category 3 or 4 nodules with additional features or imaging findings that increases the suspicion of malignancy. Modifier S- Potentially clinically significant findings (non lung cancer) RADIATION DOSE DELIVERED: 58.5mGy.cm Total DLP DATA REPOSITORY: All CT scans at this facility are submitted to the National Radiology Data Registry (NRDR) Dose Index Registry (DIR) with the [employer] ([employer]). RADIATION OPTIMIZATION: All CT scans at this facility use at least one of these dose optimization techniques: automated exposure control; mA and/or kV adjustment per patient size (includes targeted exams where dose is matched to clinical indication); or iterative reconstruction.
== END 2025-06-04 02:11 ==
LOC: DI 01:51
PROVIDERS: PCP Family Medicine; Visit Provider Family Medicine
DX: Z87.891 Personal history of nicotine dependence (principal); Z12.2 Encounter for screening for malignant neoplasm of respiratory organs
CPT/HCPCS: 71271